=== PATIENT | male | born 1935 | race Caucasian/White ===

== ENCOUNTER 2018-11-19 15:17 | Inpatient (IN) ==
[2018-11-19] MEDS ORDERED: LACTATED RINGERS 1,000 ML IV ONE (15:29)
[2018-11-19] MEDS ORDERED: ONDANSETRON 4 MG/2 ML VIAL IV ONE (15:41)
[2018-11-19] MEDS: HYDROmorphone 2 MG/ML VIAL IV PRN ×2 (16:04→17:58)
[2018-11-19 16:11] LABS: Basophils # (Auto) 0 K/mcL (0.0-0.3); Basophils % (Auto) 0.2 % (0.0-2.0); Eosinophils # (Auto) 0.1 K/mcL (0.0-0.7); Eosinophils % (Auto) 1.8 % (0.0-7.0); Granulocytes % (Auto) 76.5 % (38.0-78.0); Hematocrit 36.1 % (41.0-55.0); Hemoglobin 12.3 g/dL (13.5-16.5); Lymphocytes # (Auto) 0.9 K/mcL (1.5-4.8); Lymphocytes % (Auto) 12.6 % (15.5-49.0); Mean Cell Volume 91.3 fL (80.0-100.0); Mean Corpuscular HGB Conc 34.1 g/dL (31.0-36.0); Monocytes # (Auto) 0.7 K/mcL (0.1-0.9); Monocytes % (Auto) 8.9 % (1.0-12.0); Platelet Count 241 K/mcL (140-440); RBC 3.95 M/mcL (4.50-5.90); Red Cell Distribution Width 14.7 % (11.5-14.5); WBC 7.5 K/mcL (4.5-11.0)
[2018-11-19 16:15] LABS: POC Blood Urea Nitrogen 27 mg/dl (8-23); POC CO2 22 mmol/L (22-30); POC Calcium, Ionized 1.16 mmol/L (1.16-1.32); POC Chloride 104 mmol/L (96-108); POC Creatinine 1.3 mg/dl (0.7-1.2); POC Glucose, Random 350 mg/dL (70-105); POC Potassium 3.7 mmol/L (3.3-5.1); POC Sodium 139 mmol/L (133-145)
[2018-11-19 16:29] LABS: ALT/SGPT 19 U/l (0-40); AST/SGOT 16 U/l (0-37); Albumin 4.1 gm/dL (3.2-5.2); Albumin/Globulin Ratio 1.5 (1.0-2.3); Alkaline Phosphatase 67 U/L (39-117); Bilirubin,Total 0.4 mg/dL (0.0-1.0); Blood Urea Nitrogen 27 mg/dl (8-23); Calcium 8.7 mg/dl (8.6-10.4); Carbon Dioxide 22 mmol/L (22-30); Chloride 100 mmol/L (96-108); Globulin 2.7 gm/dL (2.2-3.7); Glomerular Filtration Rate 46; Glucose 359 mg/dL (70-105)
[2018-11-19] MEDS ORDERED: 0.9 % SODIUM CHLORIDE 1,000 ML IV ONE (16:36)
[2018-11-19] MEDS ORDERED: LABETALOL 5 MG/ML ML IV ONE (17:15)
[2018-11-19] MEDS ORDERED: hydrALAZINE 20 MG/ML VIAL IV ONE (17:18)
--- NOTE | 2018-11-19 17:43 | Cat Scan Report ---
History: Severe abdominal pain with nausea and vomiting TECHNIQUE: The abdomen was imaged following oral but no intravenous contrast due to stage III chronic kidney disease. Radiation exposure was limited using dose reduction technology. Sagittal and coronal reformats were created. FINDINGS: Mild bronchial wall thickening is seen in the posterior basal segments of both lower lobes due to bronchitis. The heart is mildly enlarged and there is been prior coronary bypass surgery. The liver and spleen are normal in size and homogeneous. Posterior to the inferior aspect of the right lobe of liver there is a well-circumscribed homogeneous nodule which measures 7 x 14 mm. This is unchanged from 03/30/17 and is felt to be benign. The gallbladder and bile ducts are normal. There is no evidence of mass or inflammation the pancreas. The adrenals are normal and symmetric. There is a 2 cm cortical cyst in the upper pole of left kidney. Moderate hydronephrosis is present in the left kidney and there is moderate perinephric stranding. At the left ureteropelvic junction there is an 8 x 10 mm calculus. Distal to the stone the ureter is decompressed. No stone or hydronephrosis are present in the right kidney. Moderate amount calcified plaque is present along the wall normal caliber abdominal aorta and iliac arteries. The oral contrast has passed through stomach and normal small intestine to the mid ileum without obstruction or inflammation. There are multiple noninflamed diverticula in the sigmoid and descending colon. Urinary bladder is normally distended and there are no stones within the lumen. Is no adenopathy or ascites. Degenerative changes are present in the lumbar spine. There is a dorsal column electrical stimulator in the lower thoracic spine. IMPRESSION: 8 x 10 mm calculus at the left ureteropelvic junction causing hydronephrosis. Shakila Ruiz was called with the results Interpreted and Authenticated by: Leonardo Mike 11/19/18
[2018-11-19 17:50] LABS: Appearance,Urine CLEAR; Bacteria,Urine 0 /hpf (0); Bilirubin,Urine NEG (NEG); Color,Urine STRAW; Glucose,Urine (UA) >=500 mg/dL (NEG); Ketones,Urine NEG (NEG); Leukocyte Esterase,Urine 75 /uL (NEG); Nitrate,Urine NEG (NEG); Protein,Urine 30 mg/dL (NEG); Specific Gravity,Urine 1.017 (1.000-1.035); Urine Blood 0.03 mg/dL (<0.03); Urine RBC 9 /hpf (0-1); Urine Squamous Epithelial Cell 2 /hpf (0-4); Urine WBC 2 /hpf (0-4); Urobilinogen,Urine NEG (NEG)
--- NOTE | 2018-11-19 17:54 | Emergency Department Note ---
Nausea/Vomiting/Diarrhea HPI - General Chief complaint: Nausea/Vomiting/Diarrhea Stated complaint: Nausea, Vomiting x4-5 hours Time Seen by Provider: 11/19/18 15:40 Source: patient, family Mode of arrival: ambulatory Limitations: no limitations - History of Present Illness HPI Narrative: 83-year-old male presents with severe abdominal discomfort. Also is hypertensive. His states all of a sudden today he just started complaining of severe abdominal pain and back pain. Seems to be worse on the right but hard to tell as he is hurting all over. He is also an extremely poor historian with some baseline confusion and difficult to get information from. states he has not actually vomited but is really nauseated. No diarrhea. No fever ch ills. - Related Data Home Medications Medication Instructions Recorded Confirmed acetaminophen 325 mg tablet 650 mg PO Q6H PRN 10/31/18 10/31/18 Previous Rx's Medication Instructions Recorded Right foot prosthesis #1 ea 04/03/18 diabetic shoes #1 ea 04/03/18 metformin 1,000 mg tablet 1,000 mg PO BID 90 Days #180 tab 08/31/18 tramadol 50 mg tablet 50 mg PO TID #90 tab 08/31/18 apixaban 5 mg tablet 5 mg PO BID #180 tab 09/03/18 gabapentin 300 mg capsule 600 mg PO .COMPLEX #150 cap 10/18/18 Allergies Allergy/AdvReac Type Severity Reaction Status Date / Time No Known Drug Allergies Allergy Verified 10/31/18 10:34 Review of Systems All systems ED: reviewed and negative except as stated. 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) Past Surgical History (Last Reviewed 10/31/18 @ 11:08 by YOLANDE Talavera) Status post insertion of spinal cord stimulator (Chronic) Hx of CABG (Chronic) History of heart valve replacement (Chronic) History of kidney stones (Chronic) History of foot surgery (Chronic) Medical history: Reports: DM, other (Recent removal of left great toenail and was healing well until patient picked it off this morning) Psychiatric history: Reports: no psych history Surgical history ED: Reports: other (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 Absent: conjunctival injection ENT: Present: mucous membranes moist Chest: Present: symmetric chest wall rise Respiratory: Present: normal lung sounds bilaterally. Absent: respiratory distress, rales/crackles, accessory muscle use Cardiovascular: Present: regular rate, normal heart sounds Abdominal: Present: soft, tenderness (Diffuse abdominal tenderness throughout and possibly worse right upper quadrant but difficult to tell as he is so tender all over), normal bowel sounds. Absent: distention, mass Extremities: Present: other (History of right partial foot amputation. The left great toe has slight bleeding at the toenail removal site but no redness or purulent drainage. No signs of infection) Neurological: Present: alert Psychiatric: Present: normal affect, normal mood Skin: Present: warm, dry, intact, normal color Course Course Narrative: Patient greatly improved with a little bit of fluid and some Zofran and Dilaudid. CT scan reveals 8 to 10 mm stone. At [address] Vaughn with urology who agrees to consult on this patient will like to see if hospitalist will admit due to comorbidities. @ 1830 Dr. Tony, hospitalist agrees to accept pt. Vital Signs Temperature 97.0 F 11/19/18 15:19 Pulse Rate 74 11/19/18 15:19 Respiratory Rate 24 H 11/19/18 15:19 Blood Pressure 222/124 11/19/18 15:19 Pulse Oximetry (%) 99 11/19/18 15:19 Temperature 97.0 F 11/19/18 15:19 Pulse Rate 72 11/19/18 17:50 Respiratory Rate 22 11/19/18 17:50 Blood Pressure 194/105 11/19/18 17:46 Pulse Oximetry (%) 97 11/19/18 17:50 Nausea/Vomiting/Diarrhea - Lab Data Lab results reviewed: Yes I reviewed the patient's lab results. Result diagrams: 11/19/18 15:37 11/19/18 15:37 Lab Results 11/19/18 11/19/18 11/19/18 Range/Units 15:37 15:37 16:06 WBC 7.5 (4.5-11.0) K/mcL RBC 3.95 L (4.50-5.90) M/mcL Hgb 12.3 L (13.5-16.5) g/dL Hct 36.1 L (41.0-55.0) % POC Hct 34.0 L (41.0-55.0) % MCV 91.3 (80.0-100.0) fL MCH 31.2 (26.0-34.0) pg MCHC 34.1 (31.0-36.0) g/dL RDW 14.7 H (11.5-14.5) % Plt Count 241 (140-440) K/mcL MPV 7.0 L (7.4-10.4) fL Gran % 76.5 (38.0-78.0) % Lymph % (Auto) 12.6 L (15.5-49.0) % [place] % (Auto) 8.9 (1.0-12.0) % Eos % (Auto) 1.8 (0.0-7.0) % Baso % (Auto) 0.2 (0.0-2.0) % Gran # 5.8 (1.8-8.0) K/mcL Lymph # (Auto) 0.9 L (1.5-4.8) K/mcL [place] # (Auto) 0.7 (0.1-0.9) K/mcL Eos # (Auto) 0.1 (0.0-0.7) K/mcL Baso # (Auto) 0 (0.0-0.3) K/mcL POC Sodium 139 (133-145) mmol/L Sodium 135 (133-145) mmol/L POC Potassium 3.7 (3.3-5.1) mmol/L Potassium 3.8 (3.3-5.1) mmol/L POC Chloride 104 (96-108) mmol/L Chloride 100 (96-108) mmol/L Carbon Dioxide 22 (22-30) mmol/L POC Total CO2 22 (22-30) mmol/L Anion Gap 13.0 (8-16) POC BUN 27 H (8-23) mg/dl BUN 27 H (8-23) mg/dl Creatinine 1.4 H (0.7-1.2) mg/dl POC Creatinine 1.3 H (0.7-1.2) mg/dl GFR Calculation 46 Glucose 359 H (70-105) mg/dL POC Glucose 350 H (70-105) mg/dL Calcium 8.7 (8.6-10.4) mg/dl POC WB Ioniz Calcium 1.16 (1.16-1.32) mmol/L Total Bilirubin 0.4 (0.0-1.0) mg/dL AST 16 (0-37) U/l ALT 19 (0-40) U/l Alkaline Phosphatase 67 (39-117) U/L Total Protein 6.8 (5.9-8.4) gm/dL Albumin 4.1 (3.2-5.2) gm/dL Globulin 2.7 (2.2-3.7) gm/dL Albumin/Globulin Ratio 1.5 (1.0-2.3) Urine Color Urine Appearance Urine pH (5.0-9.0) Ur Specific [place] (1.000-1.035) Urine Protein (NEG) mg/dL Urine Glucose (UA) (NEG) mg/dL Urine Ketones (NEG) mg/dL Urine Occult Blood (<0.03) mg/dL Urine Nitrate (NEG) Urine Bilirubin (NEG) mg/dL Urine Urobilinogen (NEG) mg/dL Ur Leukocyte Esterase (NEG) /uL Urine RBC (0-1) /hpf Urine WBC (0-4) /hpf Ur Squamous Epith Cells (0-4) /hpf Urine Bacteria (0) /hpf Ur Culture Indicated? 11/19/18 Range/Units 17:19 WBC (4.5-11.0) K/mcL RBC (4.50-5.90) M/mcL Hgb (13.5-16.5) g/dL Hct (41.0-55.0) % POC Hct (41.0-55.0) % MCV (80.0-100.0) fL MCH (26.0-34.0) pg MCHC (31.0-36.0) g/dL RDW (11.5-14.5) % Plt Count (140-440) K/mcL MPV (7.4-10.4) fL Gran % (38.0-78.0) % Lymph % (Auto) (15.5-49.0) % [place] % (Auto) (1.0-12.0) % Eos % (Auto) (0.0-7.0) % Baso % (Auto) (0.0-2.0) % Gran # (1.8-8.0) K/mcL Lymph # (Auto) (1.5-4.8) K/mcL [place] # (Auto) (0.1-0.9) K/mcL Eos # (Auto) (0.0-0.7) K/mcL Baso # (Auto) (0.0-0.3) K/mcL POC Sodium (133-145) mmol/L Sodium (133-145) mmol/L POC Potassium (3.3-5.1) mmol/L Potassium (3.3-5.1) mmol/L POC Chloride (96-108) mmol/L Chloride (96-108) mmol/L Carbon Dioxide (22-30) mmol/L POC Total CO2 (22-30) mmol/L Anion Gap (8-16) POC BUN (8-23) mg/dl BUN (8-23) mg/dl Creatinine (0.7-1.2) mg/dl POC Creatinine (0.7-1.2) mg/dl GFR Calculation Glucose (70-105) mg/dL POC Glucose (70-105) mg/dL Calcium (8.6-10.4) mg/dl POC WB Ioniz Calcium (1.16-1.32) mmol/L Total Bilirubin (0.0-1.0) mg/dL AST (0-37) U/l ALT (0-40) U/l Alkaline Phosphatase (39-117) U/L Total Protein (5.9-8.4) gm/dL Albumin (3.2-5.2) gm/dL Globulin (2.2-3.7) gm/dL Albumin/Globulin Ratio (1.0-2.3) Urine Color Straw Urine Appearance Clear Urine pH 6.0 (5.0-9.0) Ur Specific [place] 1.017 (1.000-1.035) Urine Protein 30 A (NEG) mg/dL Urine Glucose (UA) >=500 A (NEG) mg/dL Urine Ketones Neg (NEG) mg/dL Urine Occult Blood 0.03 A (<0.03) mg/dL Urine Nitrate Neg (NEG) Urine Bilirubin Neg (NEG) mg/dL Urine Urobilinogen Neg (NEG) mg/dL Ur Leukocyte Esterase 75 A (NEG) /uL Urine RBC 9 H (0-1) /hpf Urine WBC 2 (0-4) /hpf Ur Squamous Epith Cells 2 (0-4) /hpf Urine Bacteria 0 (0) /hpf Ur Culture Indicated? - Radiology Data Radiology results reviewed: Yes I reviewed the patient's radiology results. Disposition Pt seen by SERVICES MGR/PA only: Yes Clinical Impression: Abdominal pain, Kidney stone, Hydronephrosis, Hypertension, CKD (chronic kidney disease), stage III, Diabetes Disposition: Xfer As Inpt ([facility]) Referrals: Joey Brooks PA-C [Primary Care Provider] - Alec Vaughn MD [Physician] - Time of Disposition: 19:02
[2018-11-19] MEDS ORDERED: INSULIN REGULAR, HUMAN 1 UNIT/0.01 ML UNIT SQ SCH (17:59)
[2018-11-19] MEDS ORDERED: INSULIN REGULAR, HUMAN 1 UNIT/0.01 ML UNIT ONE (18:29)
[2018-11-19] MEDS ORDERED: niCARdipine 25 MG in 0.9 % SODIUM CHLORIDE 240 ML IV SCH (18:45)
[2018-11-19] MEDS ORDERED: POTASSIUM CHLORIDE 20 MEQ PACKET PO PRN (20:36)
[2018-11-19] MEDS ORDERED: traZODone HCL 50 MG TABLET PO PRN (20:36)
[2018-11-19] MEDS ORDERED: ONDANSETRON 4 MG/2 ML VIAL IV PRN (20:36)
[2018-11-19] MEDS ORDERED: guaiFENesin/CODEINE 10 ML UDC PO PRN (20:36)
[2018-11-19] MEDS ORDERED: hydrALAZINE 20 MG/ML VIAL IV PRN (20:36)
[2018-11-19] MEDS ORDERED: MAGNESIUM SULFATE 2 GM/50 ML BAG IV PRN (20:36)
[2018-11-19] MEDS ORDERED: ACETAMINOPHEN 325 MG TABLET PO PRN (20:36)
[2018-11-19] MEDS ORDERED: DEXTROSE 50% 50 ML VIAL IV PRN (20:36)
[2018-11-19] MEDS ORDERED: DEXTROSE 31 GM ORAL.SUSP PO PRN (20:36)
[2018-11-19] MEDS ORDERED: ACETAMINOPHEN 1,000 MG/100 ML BOTTLE IV PRN (20:36)
--- NOTE | 2018-11-19 20:55 | Internal Med History&Physical ---
Medical - H&P: HPI Patient information: Note initiated : 11/19/18 at 8:53 pm Service Date, if different from initiated Date: [] Patient: Wolf Miles 83 y/o M admitted on 11/19/18 for Nausea, Vomiting x4- 5 hours. Chief Complaint: [] Chief complaint: Nausea vomiting abdominal pain History of present illness: Mr. Miles is a 83 year old M who presents to the ER with progressive abdominal pain and nausea vomiting that started abruptly this evening. Pain is described as 8 out of 10 waxing and waning in nature mostly on the right side from groin to groin. Patient has been intermittently confused and when asked details he said the symptoms has been ongoing for the last 6 weeks including abdominal discomfort. Initial work-up in the ER was consistent with nephrolithiasis with obstructive uropathy/hydronephrosis. Patient was also found to be hypertensive over 200. Dr. Vaughn urology was consulted and requested hospitalist service to admit the patient while patient will undergo cystoscopy/stenting in a.m. The time of evaluation no family members are present. Patient is hard of hearing and visually challenged. He Is a poor historian but was able to endorse history as above Review of systems 10 point review of system was performed and is negative except was discussed above Medical - H&P: PMH Medical history: NAYANA (obstructive sleep apnea) (Chronic) Had sleep study in the past. Mask not tolerated. Dementia (Chronic) Afib (Chronic) H/O Neuropathy (Chronic) Bilateral lower extremities to approximately knee level Diarrhea (Chronic) Mild. On metformin. 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) Surgical History Status post insertion of spinal cord stimulator (Chronic) 03/04/16 Dr Patrick Hx of CABG (Chronic) ~2006 History of heart valve replacement (Chronic) ~2006 History of kidney stones (Chronic) History of foot surgery (Chronic) Right transmetatarsal amputation~18 months ago Family History Other No pertinent family history Social History marital status: occupational status: retired occupation: [employer] occupational exposures/hazards: Yes smoking status: Former smoker alcohol intake frequency: 2+ drinks per day substance use type: does not use Medical - H&P: Meds Home Medications Medication Instructions Recorded Confirmed Type Right foot prosthesis #1 ea 04/03/18 10/31/18 Rx diabetic shoes #1 ea 04/03/18 10/31/18 Rx metformin 1,000 mg tablet 1,000 mg PO BID 90 Days #180 tab 08/31/18 10/31/18 Rx tramadol 50 mg tablet 50 mg PO TID #90 tab 08/31/18 10/31/18 Rx apixaban 5 mg tablet 5 mg PO BID #180 tab 09/03/18 10/31/18 Rx gabapentin 300 mg capsule 600 mg PO .COMPLEX #150 cap 10/18/18 10/31/18 Rx acetaminophen 325 mg tablet 650 mg PO Q6H PRN 10/31/18 10/31/18 History Allergies Allergy/AdvReac Type Severity Reaction Status Date / Time No Known Drug Allergies Allergy Verified 11/20/18 03:04 Medical - H&P: Exam - Constitutional Vitals: Temp Pulse Resp BP Pulse Ox 97.6 F 79 22 130/78 95 11/19/18 20:36 11/19/18 20:36 11/19/18 20:36 11/19/18 20:36 11/19/18 20:36 General appearance: moderate distress (Abdominal discomfort) Exam: Head normocephalic Eye movement symmetrical Oral cavity dry No ear nose discharge S1-S2 irregular rhythm with ejection systolic murmur grade 2 Diminished breath sounds bases abdomen soft nontender to palpation Lower extremity no cyanosis clubbing no joint swelling Right midfoot amputation Left big toenail ulceration Skin no suspicious lesion Psych alert and cooperative Neuro nonfocal Medical - H&P: Reslt - Labs CBC & Chem 7: 11/20/18 03:24 11/20/18 03:24 Labs: Short CBC 11/19/18 Range/Units 15:37 WBC 7.5 (4.5-11.0) K/mcL Hgb 12.3 L (13.5-16.5) g/dL Hct 36.1 L (41.0-55.0) % Plt Count 241 (140-440) K/mcL BMP 11/19/18 15:37 Sodium 135 Potassium 3.8 Chloride 100 Carbon Dioxide 22 BUN 27 H Creatinine 1.4 H Glucose 359 H Calcium 8.7 Liver Function 11/19/18 Range/Units 15:37 Total Bilirubin 0.4 (0.0-1.0) mg/dL AST 16 (0-37) U/l ALT 19 (0-40) U/l Alkaline Phosphatase 67 (39-117) U/L Albumin 4.1 (3.2-5.2) gm/dL Urine 11/19/18 Range/Units 17:19 Urine Color Straw Urine Appearance Clear Urine pH 6.0 (5.0-9.0) Ur Specific [place] 1.017 (1.000-1.035) Urine Protein 30 A (NEG) mg/dL Urine Glucose (UA) >=500 A (NEG) mg/dL Medical - H&P: A/P (1) Asymptomatic hypertensive urgency Current visit: Yes Status: Acute * Hypertensive urgency-continue nicardipine drip. Likely exacerbated by pain. Admit to telemetry * Acute renal colic with obstructive uropathy-urology consulted. Continue pain management. Keep n.p.o. Likely undergoes cystoscopy by urology * DM type II continue sliding-scale insulin * Neuropathy continue gabapentin * Anticoagulation on apixaban * Full code Plan * Inpatient telemetry admit * Wean nicardipine drip as tolerated * Pain management * Urology consult * Pre-existing medical condition management and home meds as above
[2018-11-19] MEDS ORDERED: SENNOSIDES/DOCUSATE SODIUM 1 TAB TABLET PO SCH (21:00)
[2018-11-19] MEDS: INSULIN LISPRO 1 UNIT/0.01 ML UNIT SQ SCH (21:27)
[2018-11-19] MEDS: 0.9 % SODIUM CHLORIDE 1,000 ML IV SCH (21:27)
[2018-11-19] MEDS: DOCUSATE SODIUM 100 MG CAPSULE PO SCH (21:27)
[2018-11-19] MEDS: HEPARIN 5,000 UNIT/ML VIAL SQ SCH (21:28)
[2018-11-20] MEDS: 0.9 % SODIUM CHLORIDE 10 ML SYRINGE IV SCH ×4 (00:03→21:00)
[2018-11-20] MEDS: HYDROmorphone 2 MG/ML VIAL IV PRN ×5 (02:37→23:31)
[2018-11-20] MEDS ORDERED: niCARdipine 25 MG in 0.9 % SODIUM CHLORIDE 240 ML IV SCH ×4 (04:30→06:45)
[2018-11-20 05:36] LABS: Hematocrit 37.7 % (41.0-55.0); Hemoglobin 12.5 g/dL (13.5-16.5); Mean Cell Volume 93.6 fL (80.0-100.0); Mean Corpuscular HGB Conc 33.3 g/dL (31.0-36.0); Mean Platelet Volume 7.3 fL (7.4-10.4); Platelet Count 210 K/mcL (140-440); RBC 4.03 M/mcL (4.50-5.90); Red Cell Distribution Width 15.1 % (11.5-14.5); WBC 10.8 K/mcL (4.5-11.0)
[2018-11-20 06:00] LABS: ALT/SGPT 17 U/l (0-40); AST/SGOT 15 U/l (0-37); Albumin 3.8 gm/dL (3.2-5.2); Albumin/Globulin Ratio 1.4 (1.0-2.3); Alkaline Phosphatase 68 U/L (39-117); Bilirubin,Direct < 0.2 mg/dL (0.0-0.3); Bilirubin,Total 0.6 mg/dL (0.0-1.0); Blood Urea Nitrogen 21 mg/dl (8-23); Calcium 8.4 mg/dl (8.6-10.4); Carbon Dioxide 22 mmol/L (22-30); Chloride 101 mmol/L (96-108); Globulin 2.8 gm/dL (2.2-3.7); Glomerular Filtration Rate 56; Glucose 246 mg/dL (70-105); Lactate Dehydrogenase 267 U/L (94-250); Phosphorous 3.1 mg/dL (2.7-4.5); Triglycerides 130 mg/dl (<150); Uric Acid 3.2 mg/dL (2.5-8.0)
[2018-11-20 06:35] LABS: Band Neutrophils % 2 % (0-10); Eosinophils % (Manual) 1 % (0-7); Lymphocytes % 5 % (15-49); Monocytes % (Manual) 3 % (1-12); Platelet Estimate NORMAL (NORMAL); RBC Morphology NORMAL (NORMAL); Segmented Neutrophils % 89 % (38-78)
[2018-11-20] MEDS: INSULIN LISPRO 1 UNIT/0.01 ML UNIT SQ SCH ×3 (07:03→20:57)
[2018-11-20] MEDS ORDERED: INSULIN REGULAR, HUMAN 1 UNIT/0.01 ML UNIT SQ SCH (07:30)
--- NOTE | 2018-11-20 07:42 | General Surgery Progress Note ---
Surgical - Auxillary Note - Subjective Patient Information: Note initiated : 11/20/18 at 7:41 am Service Date, if different from initiated Date: [] Patient: Wolf Miles 83 y/o M admitted on 11/19/18 for Nausea, Vomiting x4- 5 hours. Chief Complaint:Patient examined and consult dictated. to OR today for stent possible stone removal
--- NOTE | 2018-11-20 08:10 | Consultation ---
DATE OF CONSULTATION: 11/20/2018 REQUESTING PHYSICIAN: Farshad Gee M.D. HISTORY OF PRESENT ILLNESS: The patient is an 83-year-old gentleman who was seen in the emergency room yesterday because of severe abdominal discomfort. He stated this came on suddenly, complaining of the pain. He was seen in the emergency room where a CT scan was obtained. This showed a 1 x 0.8 cm stone at the left UPJ. He did have some nausea, no vomiting. The patient does have dementia and is a poor historian. He states that he did have stones approximately 30 years ago and does not remember if he had any intervention. He denies any fevers or chills. He presents now for evaluation. ALLERGIES: None. CURRENT MEDICATIONS: 1. Metformin. 2. Tramadol. 3. Apixaban. 4. Gabapentin. PAST MEDICAL HISTORY: Sleep apnea, dementia, atrial fibrillation, diarrhea, and kidney stones. PAST SURGICAL HISTORY: Spinal cord stimulator, heart valve replacement, foot surgery and a CABG. SOCIAL HISTORY: Used to smoke. Denies any alcohol use. REVIEW OF SYSTEMS: ENDOCRINE: Positive diabetes. PSYCHIATRIC: Positive dementia. CARDIAC: Positive coronary artery disease. PULMONARY: Denies any shortness of breath. No COPD. The rest of a 12-point review of systems is negative. PHYSICAL EXAMINATION: GENERAL: This is a very pleasant gentleman in no apparent distress. VITAL SIGNS: As listed per nurse's notes. NECK: Supple. Trachea is in the midline. HEART: Regular rate and rhythm. LUNGS: Clear to auscultation. ABDOMEN: Soft, nontender, positive left CVA tenderness which extends down to the groin. GENITOURINARY: Normal male phallus, circumcised without plaques. Meatus at the end of his penis. Testicles are normal without lesion. Epididymides without cysts. Scrotum: No hernias. No hydrocele or varicocele. RECTAL: Deferred. EXTREMITIES: Without clubbing, cyanosis or edema. Does have a partial right foot amputation. LYMPHATIC: No adenopathy in neck or groin. IMPRESSION: The patient with a left renal stone. I have talked to the patient about this, and it appears that we may need to stent this. He is on a blood thinner, and so I would not be overly aggressive. I have gone over the procedure with him and complications including bleeding, infection, pain, blood in his urine. We may need to do lithotripsy in the future because of his stone. It depends on what we see in the operating room. I did talk to him about the procedure and a full PARQ discussion was held. We will plan to follow up at the time of surgery. IRVING:[email or web address] Job ID: [id number] Doc ID: [id number] Alec Vaughn MD
[2018-11-20] MEDS: DOCUSATE SODIUM 100 MG CAPSULE PO SCH ×2 (08:52→20:56)
[2018-11-20] MEDS: HEPARIN 5,000 UNIT/ML VIAL SQ SCH (08:52)
[2018-11-20] MEDS ORDERED: MULTIVIT,THER IRON,CA,FA & MIN 1 TABLET PO SCH (09:00)
[2018-11-20] MEDS ORDERED: INSULIN GLARGINE, HUMAN 1 UNIT/0.01 ML SQ SCH (09:00)
[2018-11-20] MEDS ORDERED: amLODIPine 5 MG TABLET PO SCH (09:00)
[2018-11-20] MEDS ORDERED: sitaGLIPtin 100 MG TABLET PO SCH (09:00)
--- NOTE | 2018-11-20 09:55 | Internal Med Progress Note ---
Medical - PN: Subj Patient information: Note initiated : 11/20/18 at 9:52 am Service Date, if different from initiated Date: [] Patient: Wolf Miles 83 y/o M admitted on 11/19/18 for Nausea, Vomiting x4- 5 hours. Chief Complaint: [] Interval history: Mr. Miles is a 83 year old M who presents to the ER with progressive abdominal pain and nausea vomiting that started abruptly this evening. Pain is described as 8 out of 10 waxing and waning in nature mostly on the right side from groin to groin. Patient has been intermittently confused and when asked details he said the symptoms has been ongoing for the last 6 weeks including abdominal discomfort. Initial work-up in the ER was consistent with nephrolithiasis with obstructive uropathy/hydronephrosis. Patient was also found to be hypertensive over 200. Dr. Vaughn urology was consulted and requested hospitalist service to admit the patient while patient will undergo cystoscopy/stenting in a.m. The time of evaluation no family members are present. Patient is hard of hearing and visually challenged. He Is a poor historian but was able to endorse history as above 11/20-patient doing well. Weaning nicardipine drip with systolics around 160s. Due for cystoscopy 3 PM. Overnight fever chills. Pain in good control. Remains afebrile. White count up trending at 10.8. Creatinine down to 1.2. N.p.o. patient was unable to void overnight and Krause's was placed after bladder scan revealed 900 cc. Remains in A. fib - Constitutional Vitals: Vital Signs Temp Pulse Resp BP Pulse Ox 97.9 F 88 14 145/68 92 11/20/18 08:17 11/20/18 03:01 11/20/18 09:47 11/20/18 09:16 11/20/18 03:01 Period Temp Pulse Resp BP Sys/Porter Pulse Ox Last 24 Hr 97.0 F-97.9 F 62-128 03-22 118-228/65-169 92-100 Intake and Output 11/19/18 11/20/18 11/20/18 21:59 05:59 13:59 Intake Total 1120 130 151 Output Total 1230 Balance 1120 -1100 151 Weight 204 lb Intake & Output: Intake & Output 11/19/18 11/20/18 11/20/18 21:59 05:59 13:59 Intake Total 1120 130 151 Output Total 1230 Balance 1120 -1100 151 Weight 204 lb Intake: IV 1120 130 151 Lactated Ringers 1,000 ml @ 1000 Wide Open IV BOLUS ONE Rx#: [id number] Cardene 25 MG In Sodium 120 130 151 Chloride 0.9% 240 ml @ 5 MG/HR 50 mls/hr IV Q5H [facility] Rx#: [id number] Output: Urine Catheter Amount 1230 Other: Urine Appearance Clear Uretheral (Krause) Clear Urine Color Bright Yellow Uretheral (Krause) Pale Bright Yellow Urine Odor Normal Uretheral (Krause) Normal General appearance: no acute distress Exam: Alert oriented Sitting on chair Nonlabored breathing No anxiety Nondistended abdomen Krause is draining clear urine Medical - PN: Obj Da - Labs CBC & Chem 7: 11/20/18 03:24 11/20/18 03:24 Labs: Abnormal Lab Results 11/20/18 11/20/18 11/19/18 03:24 03:24 17:19 RBC 4.03 L Hgb 12.5 L Hct 37.7 L POC Hct RDW 15.1 H MPV 7.3 L Lymph % (Auto) Lymph # (Auto) Seg Neutrophils % 89 H Lymphocytes % 5 L POC BUN BUN Creatinine POC Creatinine Glucose 246 H POC Glucose Calcium 8.4 L Lactate Dehydrogenase 267 H Urine Protein 30 A Urine Glucose (UA) >=500 A Urine Occult Blood 0.03 A Ur Leukocyte Esterase 75 A Urine RBC 9 H 11/19/18 11/19/18 11/19/18 16:06 15:37 15:37 RBC 3.95 L Hgb 12.3 L Hct 36.1 L POC Hct 34.0 L RDW 14.7 H MPV 7.0 L Lymph % (Auto) 12.6 L Lymph # (Auto) 0.9 L Seg Neutrophils % Lymphocytes % POC BUN 27 H BUN 27 H Creatinine 1.4 H POC Creatinine 1.3 H Glucose 359 H POC Glucose 350 H Calcium Lactate Dehydrogenase Urine Protein Urine Glucose (UA) Urine Occult Blood Ur Leukocyte Esterase Urine RBC Meds: Medications Acetaminophen (Tylenol) 650 mg PO Q4-6HP PRN PRN Reason: PAIN/FEVER > 101 Dextrose (Dextrose 50%) 0 ml IV UD PRN PRN Reason: Hypoglycemia Diagnostic Test (Pha) (Accu-Chek) 1 each FS ACHS [facility] Last Admin: 11/20/18 06:52 Dose: 1 each Documented by: Docusate Sodium (Colace) 100 mg PO BID [facility] Last Admin: 11/20/18 08:52 Dose: Not Given Documented by: Glucose (Insta-Glucose) 15 gm PO PRN PRN PRN Reason: Hypoglycemia Guaifenesin/Codeine Phosphate (Robitussin Ac) 10 ml PO Q4HP PRN PRN Reason: Cough Heparin Sodium (Porcine) (Heparin) 5,000 unit SQ Q12 [facility] Last Admin: 11/20/18 08:52 Dose: 5,000 unit Documented by: Hydralazine HCl (Apresoline) 10 mg IV Q4-6HP PRN PRN Reason: Hypertension Last Admin: 11/20/18 03:12 Dose: 10 mg Documented by: Hydromorphone HCl (Dilaudid) 0 mg IV Q4HP PRN PRN Reason: PAIN LEVEL > 6 Last Admin: 11/20/18 07:03 Dose: 0.5 mg Documented by: Magnesium Sulfate (Magnesium Sulfate) 2 gm in 50 mls @ 50 mls/hr IV UD PRN PRN Reason: MG = or < 1.7 Sodium Chloride (Sodium Chloride 0.9%) 1,000 mls @ 50 mls/hr IV .Q20H [facility] Stop: 11/22/18 08:35 Last Admin: 11/19/18 21:27 Dose: 50 mls/hr Documented by: Acetaminophen (Ofirmev) 1,000 mg in 100 mls @ 200 mls/hr IV Q6HP PRN PRN Reason: PAIN/FEVER > 101 Nicardipine HCl 25 mg/ Sodium (Chloride) 250 mls @ 50 mls/hr IV Q5H [facility]; Protocol Last Titration: 11/20/18 08:53 Dose: 0 mg/hr, 0 mls/hr Documented by: Cefazolin Sodium 2 gm/ (Dextrose) 50 mls @ 100 mls/hr IV PREOP [facility]; Protocol Stop: 11/20/18 13:00 Insulin Glargine (Lantus) 10 unit SQ DAILY [facility] Last Admin: 11/20/18 08:52 Dose: 10 units Documented by: Insulin Human Lispro (Humalog) 0 unit SQ ACHS [facility]; Protocol Last Admin: 11/20/18 07:03 Dose: 6 unit Documented by: Iron Carb/Multivit/Reo Asset Manager/Folic Acid (Multivitamin W/Minerals) 1 tab PO DAILY [facility] Last Admin: 11/20/18 08:52 Dose: 1 tab Documented by: Ondansetron HCl (Zofran) 4 mg IV Q4-6HP PRN PRN Reason: Nausea And Vomiting Potassium Chloride (Klor-Con) 40 meq PO DAILYP PRN PRN Reason: K+ < 3.5 Senna/Docusate Sodium (Senna Plus Tablet) 1 tab PO HS [facility] Last Admin: 11/19/18 21:27 Dose: Not Given Documented by: Sitagliptin Phosphate (Januvia) 100 mg PO DAILY [facility] Last Admin: 11/20/18 08:52 Dose: 100 mg Documented by: Sodium Chloride (Saline Flush) 10 ml IV Q8 [facility] Last Admin: 11/20/18 05:01 Dose: Not Given Documented by: Trazodone HCl (Desyrel) 50 mg PO HSP PRN PRN Reason: Insomnia Medical - PN: A/P - Time Spent With Patient Total time spent is greater than 50% in coordination of care (as documented) at patient's floor/unit and/or counseling patient: Greater than 35 minutes (1) Asymptomatic hypertensive urgency Status: Acute Assessment and plan: * Hypertensive urgency-continue nicardipine drip. Likely exacerbated by pain. Admit to telemetry * Acute renal colic with obstructive uropathy-urology consulted. Continue pain management. Keep n.p.o. Likely undergoes cystoscopy by urology * DM type II continue sliding-scale insulin/basal/CCD * Atrial fibrillation rate controlled-anticoagulation on apixaban * Neuropathy continue gabapentin * Full code Plan * Review postprocedure * Wean nicardipine drip as tolerated * Pain management * Pre-existing medical condition management and home meds as above Current Visit: Yes Medical - PN: Qual - Stroke Symptom Onset Unknown: No - VTE Deep Vein Thrombosis/Pulmonary Embolism Present on Admission: No
[2018-11-20] MEDS ORDERED: niCARdipine 25 MG in 0.9 % SODIUM CHLORIDE 240 ML IV PRN ×3 (11:00→17:41)
[2018-11-20] MEDS ORDERED: LOPERAMIDE 2 MG CAPSULE PO PRN ×3 (11:46→17:41)
[2018-11-20] MEDS: ceFAZolin 2 GM in DEXTROSE 5% IN WATER 50 ML IV SCH ×2 (14:33→14:42)
[2018-11-20] MEDS ORDERED: ONDANSETRON 4 MG/2 ML VIAL IV ONE (15:00)
[2018-11-20] MEDS ORDERED: ePHEDrine 50 MG/ML AMPUL IV ONE (15:00)
[2018-11-20] MEDS ORDERED: PROPOFOL 200 MG/20 ML VIAL IV ONE (15:00)
[2018-11-20] MEDS ORDERED: MIDAZOLAM 2 MG/2 ML VIAL IV ONE (15:00)
[2018-11-20] MEDS ORDERED: DEXAMETHASONE 10 MG/ML VIAL IV ONE (15:00)
[2018-11-20] MEDS ORDERED: LIDOCAINE HCL/PF 100 MG/5 ML SYRINGE IV ONE (15:00)
[2018-11-20] MEDS ORDERED: traMADol 50 MG TABLET PO SCH ×2 (15:00→21:00)
[2018-11-20] MEDS ORDERED: FLUMAZENIL 0.1 MG/ML ML IV PRN ×2 (15:26→16:36)
[2018-11-20] MEDS ORDERED: METHOCARBAMOL 1,000 MG/10 ML VIAL IV PRN ×2 (15:26→16:36)
[2018-11-20] MEDS ORDERED: fentaNYL 100 MCG/2 ML VIAL IV PRN ×2 (15:26→16:36)
[2018-11-20] MEDS ORDERED: METOPROLOL TARTRATE 5 MG/5 ML VIAL IV PRN ×2 (15:26→16:36)
[2018-11-20] MEDS ORDERED: ONDANSETRON 4 MG/2 ML VIAL IV PRN ×4 (15:26→17:41)
[2018-11-20] MEDS ORDERED: ATROPINE SULFATE 0.4 MG/ML VIAL IV PRN ×2 (15:26→16:36)
[2018-11-20] MEDS ORDERED: NALOXONE HCL 0.4 MG/ML VIAL IV PRN ×2 (15:26→16:36)
[2018-11-20] MEDS ORDERED: ePHEDrine 50 MG/ML AMPUL IV PRN ×2 (15:26→16:36)
[2018-11-20] MEDS ORDERED: IPRATROPIUM/ALBUTEROL 3 ML AMPUL.NEB NEB PRN ×2 (15:26→16:36)
[2018-11-20] MEDS ORDERED: diphenhydrAMINE 50 MG/ML VIAL IV PRN ×2 (15:26→16:36)
[2018-11-20] MEDS ORDERED: PROMETHAZINE 25 MG/ML VIAL IV PRN ×2 (15:26→16:36)
--- NOTE | 2018-11-20 15:59 | Brief Operative Note ---
Date of procedure: 11/20/18 Pre-op diagnosis: left renal stone Post-op diagnosis: same Procedure: ureteroscopy, laser litho, stent Grafts/Implants: Yes (ureteral stent) Anesthesia: GLMA Findings: see note Complications: none Surgeon: Alec Vaughn Specimens Removed/Pathology: none sent Condition: stable Disposition: PACU
[2018-11-20] MEDS ORDERED: IOHEXOL 300 10 ML VIAL IV ONE (16:13)
[2018-11-20] MEDS ORDERED: ACETAMINOPHEN 325 MG TABLET PO PRN ×2 (16:36→17:41)
[2018-11-20] MEDS ORDERED: traZODone HCL 50 MG TABLET PO PRN (16:36)
[2018-11-20] MEDS ORDERED: POTASSIUM CHLORIDE 20 MEQ PACKET PO PRN ×2 (16:36→17:41)
[2018-11-20] MEDS ORDERED: HYDROmorphone 2 MG/ML VIAL IV PRN (16:36)
[2018-11-20] MEDS ORDERED: ceFAZolin 2 GM in DEXTROSE 5% IN WATER 50 ML IV SCH (16:36)
[2018-11-20] MEDS ORDERED: DEXTROSE 31 GM ORAL.SUSP PO PRN ×2 (16:36→17:41)
[2018-11-20] MEDS ORDERED: MAGNESIUM SULFATE 2 GM/50 ML BAG IV PRN ×2 (16:36→17:41)
[2018-11-20] MEDS ORDERED: 0.9 % SODIUM CHLORIDE 1,000 ML IV SCH (16:36)
[2018-11-20] MEDS ORDERED: guaiFENesin/CODEINE 10 ML UDC PO PRN ×2 (16:36→17:41)
[2018-11-20] MEDS ORDERED: DEXTROSE 50% 50 ML VIAL IV PRN ×2 (16:36→17:41)
[2018-11-20] MEDS ORDERED: ACETAMINOPHEN 1,000 MG/100 ML BOTTLE IV PRN ×2 (16:36→17:41)
[2018-11-20] MEDS ORDERED: hydrALAZINE 20 MG/ML VIAL IV PRN ×2 (16:36→17:41)
[2018-11-20] MEDS ORDERED: INSULIN LISPRO 1 UNIT/0.01 ML UNIT SQ SCH (17:00)
[2018-11-20] MEDS: 0.9 % SODIUM CHLORIDE 1,000 ML IV SCH (17:24)
[2018-11-20] MEDS: APIXABAN 5 MG TABLET PO SCH (20:56)
[2018-11-20] MEDS: traZODone HCL 50 MG TABLET PO PRN (20:56)
[2018-11-20] MEDS: traMADol 50 MG TABLET PO SCH (20:58)
[2018-11-20] MEDS: SENNOSIDES/DOCUSATE SODIUM 1 TAB TABLET PO SCH (21:00)
[2018-11-20] MEDS ORDERED: DOCUSATE SODIUM 100 MG CAPSULE PO SCH (21:00)
[2018-11-20] MEDS ORDERED: SENNOSIDES/DOCUSATE SODIUM 1 TAB TABLET PO SCH (21:00)
[2018-11-20] MEDS ORDERED: APIXABAN 5 MG TABLET PO SCH ×2 (21:00)
[2018-11-20] MEDS ORDERED: 0.9 % SODIUM CHLORIDE 10 ML SYRINGE IV SCH (22:00)
[2018-11-21] MEDS ORDERED: GABAPENTIN 300 MG CAPSULE PO ONE (00:08)
[2018-11-21] MEDS ORDERED: GABAPENTIN 300 MG CAPSULE ONE (00:19)
[2018-11-21 05:22] LABS: Hematocrit 32.6 % (41.0-55.0); Hemoglobin 10.9 g/dL (13.5-16.5); Mean Cell Volume 93.8 fL (80.0-100.0); Mean Corpuscular HGB Conc 33.6 g/dL (31.0-36.0); Mean Platelet Volume 7.8 fL (7.4-10.4); Platelet Count 179 K/mcL (140-440); RBC 3.48 M/mcL (4.50-5.90); Red Cell Distribution Width 15.5 % (11.5-14.5); WBC 9.3 K/mcL (4.5-11.0)
[2018-11-21 05:37] LABS: ALT/SGPT 12 U/l (0-40); AST/SGOT 11 U/l (0-37); Albumin 3.4 gm/dL (3.2-5.2); Albumin/Globulin Ratio 1.4 (1.0-2.3); Alkaline Phosphatase 66 U/L (39-117); Bilirubin,Direct < 0.2 mg/dL (0.0-0.3); Bilirubin,Total 0.5 mg/dL (0.0-1.0); Blood Urea Nitrogen 26 mg/dl (8-23); Calcium 8.1 mg/dl (8.6-10.4); Carbon Dioxide 22 mmol/L (22-30); Chloride 101 mmol/L (96-108); Globulin 2.5 gm/dL (2.2-3.7); Glomerular Filtration Rate 40; Glucose 318 mg/dL (70-105); Lactate Dehydrogenase 269 U/L (94-250); Phosphorous 3.1 mg/dL (2.7-4.5); Triglycerides 75 mg/dl (<150); Uric Acid 3.8 mg/dL (2.5-8.0)
[2018-11-21] MEDS: 0.9 % SODIUM CHLORIDE 10 ML SYRINGE IV SCH ×3 (05:38→19:15)
[2018-11-21 06:14] LABS: Monocytes % (Manual) 3 % (1-12); Platelet Estimate NORMAL (NORMAL); RBC Morphology NORMAL (NORMAL); Segmented Neutrophils % 97 % (38-78)
--- NOTE | 2018-11-21 07:03 | Operative Note ---
DATE OF OPERATION: 11/20/2018 PREOPERATIVE DIAGNOSIS: Left renal stone. POSTOPERATIVE DIAGNOSIS: Left renal stone. PROCEDURE: Cystoscopy, retrograde pyelogram, ureteroscopy, laser lithotripsy and stent placement. SURGEON: Alec Vaughn MD INDICATION: The patient is an 83-year-old gentleman who had severe sudden onset of left flank pain yesterday. CT scan did show a 1 cm stone in his left kidney at the UPJ. He presents now for treatment. PROCEDURE IN DETAIL: The patient was identified and consent was signed. He was given general anesthesia, placed in lithotomy position, prepped and draped in a standard fashion. Cystourethroscopy showed normal-appearing urethra. The prostate was mildly enlarged. Orifices were in their normal position and there was stone debris in bladder. We did do a retrograde pyelogram which showed a stone at the left UPJ approximately a cm in size. I did pass a wire up into the kidney and then was able to pass the ureteroscope up near the ureteropelvic junction. The stone had been pushed back up in the kidney so the decision was made to do flexible ureteroscopy. With the wire in place, the access wire was then placed without difficulty and then we were able to introduce the flexible ureteroscope. We were able to see the stone and this we were able to dust into multiple fragments. There were no big fragments enough to grasp and I felt that the stone had been broken up. The decision was made to leave a stent. A 6 x 28 stent was then placed using the Seldinger technique, after the access sheath had been removed. The string was left attached. His bladder was drained. He was awoken and taken to the recovery room. The string was taped to the penis. He tolerated the procedure well. RZ:[id number] Job ID: [id number] Doc ID: [id number] Alec Vaughn MD
--- NOTE | 2018-11-21 07:29 | General Surgery Progress Note ---
Surgical - Auxillary Note - Subjective Patient Information: Note initiated : 11/21/18 at 7:27 am Service Date, if different from initiated Date: [] Patient: Wolf Miles 83 y/o M admitted on 11/19/18 for Nausea, Vomiting x4- 5 hours. Chief Complaint: renal stone Patient improved this am. denies any pain. stent can be removed by pulling the string on Monday. I will f/u in 2 weeks in the office.
[2018-11-21] MEDS: INSULIN LISPRO 1 UNIT/0.01 ML UNIT SQ SCH ×3 (08:00→18:53)
[2018-11-21] MEDS: APIXABAN 5 MG TABLET PO SCH ×2 (08:20→23:54)
[2018-11-21] MEDS: MULTIVIT,THER IRON,CA,FA & MIN 1 TABLET PO SCH (08:20)
[2018-11-21] MEDS: traMADol 50 MG TABLET PO SCH ×3 (08:21→23:54)
[2018-11-21] MEDS: sitaGLIPtin 100 MG TABLET PO SCH (08:21)
[2018-11-21] MEDS: amLODIPine 5 MG TABLET PO SCH (08:21)
[2018-11-21] MEDS ORDERED: INSULIN GLARGINE, HUMAN 1 UNIT/0.01 ML SQ SCH ×2 (09:00)
[2018-11-21] MEDS ORDERED: GABAPENTIN 300 MG CAPSULE PO SCH ×3 (09:00)
[2018-11-21] MEDS ORDERED: MULTIVIT,THER IRON,CA,FA & MIN 1 TABLET PO SCH (09:00)
[2018-11-21] MEDS ORDERED: sitaGLIPtin 100 MG TABLET PO SCH (09:00)
[2018-11-21] MEDS ORDERED: amLODIPine 5 MG TABLET PO SCH (09:00)
[2018-11-21] MEDS: DOCUSATE SODIUM 100 MG CAPSULE PO SCH ×2 (10:31→23:47)
[2018-11-21] MEDS: DULoxetine 30 MG CAPSULE PO SCH (10:37)
--- NOTE | 2018-11-21 10:55 | Internal Med Progress Note ---
Medical - PN: Subj Patient information: Note initiated : 11/21/18 at 10:52 am Service Date, if different from initiated Date: [] Patient: Wolf Miles 83 y/o M admitted on 11/19/18 for Nausea, Vomiting x4- 5 hours. Chief Complaint: [] Interval history: Mr. Miles is a 83 year old M who presents to the ER with progressive abdominal pain and nausea vomiting that started abruptly this evening. Pain is described as 8 out of 10 waxing and waning in nature mostly on the right side from groin to groin. Patient has been intermittently confused and when asked details he said the symptoms has been ongoing for the last 6 weeks including abdominal discomfort. Initial work-up in the ER was consistent with nephrolithiasis with obstructive uropathy/hydronephrosis. Patient was also found to be hypertensive over 200. Dr. Vaughn urology was consulted and requested hospitalist service to admit the patient while patient will undergo cystoscopy/stenting in a.m. The time of evaluation no family members are present. Patient is hard of hearing and visually challenged. He Is a poor historian but was able to endorse history as above 11/20-patient doing well. Weaning nicardipine drip with systolics around 160s. Due for cystoscopy 3 PM. Overnight fever chills. Pain in good control. Remains afebrile. White count up trending at 10.8. Creatinine down to 1.2. N.p.o. patient was unable to void overnight and Krause's was placed after bladder scan revealed 900 cc. Remains in A. fib 11/21-patient doing well. Intermittent confused. Patient concerned about possible gabapentin reaction. Complains of pain around the great toenail infection. Continue antibiotic coverage. Status post ureteric stent placement. No family members at bedside. Ongoing PT OT/nutrition support. Anticipate discharge in 24 to 48 hours with clinical improvement. Creatinine 1.6. Systolics around 120. Improved on Norvasc. Blood sugars around 250. Increase basal insulin. Continue CC diet. Start Cymbalta for neuropathic pain - Constitutional Vitals: Vital Signs Temp Pulse Resp BP Pulse Ox 97.0 F 67 18 122/67 96 11/21/18 06:49 11/21/18 06:49 11/21/18 06:49 11/21/18 06:49 11/21/18 06:49 Period Temp Pulse Resp BP Sys/Porter Pulse Ox Last 24 Hr 97.0 F-98.9 F 61-88 10-22 107-177/57-113 92-100 Intake and Output 11/20/18 11/21/18 11/21/18 21:59 05:59 13:59 Intake Total 1395 160 120 Output Total 402 4 Balance 993 156 120 Weight 208 lb Intake & Output: Intake & Output 11/20/18 11/21/18 11/21/18 21:59 05:59 13:59 Intake Total 1395 160 120 Output Total 402 4 Balance 993 156 120 Weight 208 lb Intake: IV 15 Ancef 2 gm In Dextrose 5% in 15 Water 50 ml @ 100 mls/hr IV PREOP [facility] Rx#:[id number] Oral 480 160 120 IV - Manual Only 900 Output: Urine Catheter Amount 400 # of times incontinent of urine 2 4 Other: Meal Dinner Breakfast Percent of Meal Consumed 100% 100% Feeding Ability Independent Urine Appearance Clear Hematuria Urine Color Blood Tinged Red Brown Urine Odor Normal Stool Size Moderate Stool Color Brown Stool Consistency Soft # Voids 1 # Bowel Movements 1 General appearance: no acute distress Exam: Intermittently confused Nonlabored breathing Minimal anxiety Nondistended abdomen No lymphedema Medical - PN: Obj Da - Labs CBC & Chem 7: 11/21/18 03:15 11/21/18 03:15 Labs: Abnormal Lab Results 11/21/18 11/21/18 11/20/18 03:15 03:15 03:24 RBC 3.48 L Hgb 10.9 L Hct 32.6 L POC Hct RDW 15.5 H MPV Lymph % (Auto) Lymph # (Auto) Seg Neutrophils % 97 H Lymphocytes % POC BUN BUN 26 H Creatinine 1.6 H POC Creatinine Glucose 318 H 246 H POC Glucose Calcium 8.1 L 8.4 L Lactate Dehydrogenase 269 H 267 H Urine Protein Urine Glucose (UA) Urine Occult Blood Ur Leukocyte Esterase Urine RBC 11/20/18 11/19/18 11/19/18 03:24 17:19 16:06 RBC 4.03 L Hgb 12.5 L Hct 37.7 L POC Hct 34.0 L RDW 15.1 H MPV 7.3 L Lymph % (Auto) Lymph # (Auto) Seg Neutrophils % 89 H Lymphocytes % 5 L POC BUN 27 H BUN Creatinine POC Creatinine 1.3 H Glucose POC Glucose 350 H Calcium Lactate Dehydrogenase Urine Protein 30 A Urine Glucose (UA) >=500 A Urine Occult Blood 0.03 A Ur Leukocyte Esterase 75 A Urine RBC 9 H 11/19/18 11/19/18 15:37 15:37 RBC 3.95 L Hgb 12.3 L Hct 36.1 L POC Hct RDW 14.7 H MPV 7.0 L Lymph % (Auto) 12.6 L Lymph # (Auto) 0.9 L Seg Neutrophils % Lymphocytes % POC BUN BUN 27 H Creatinine 1.4 H POC Creatinine Glucose 359 H POC Glucose Calcium Lactate Dehydrogenase Urine Protein Urine Glucose (UA) Urine Occult Blood Ur Leukocyte Esterase Urine RBC Meds: Medications Acetaminophen (Tylenol) 650 mg PO Q4-6HP PRN PRN Reason: PAIN/FEVER > 101 Amlodipine Besylate (Norvasc) 5 mg PO DAILY [facility] Last Admin: 11/21/18 08:21 Dose: 5 mg Documented by: Apixaban (Eliquis) 5 mg PO BID [facility] Last Admin: 11/21/18 08:20 Dose: 5 mg Documented by: Dextrose (Dextrose 50%) 0 ml IV UD PRN PRN Reason: Hypoglycemia Diagnostic Test (Pha) (Accu-Chek) 1 each FS ACHS [facility] Last Admin: 11/21/18 07:41 Dose: 1 each Documented by: Docusate Sodium (Colace) 100 mg PO BID [facility] Last Admin: 11/21/18 10:31 Dose: Not Given Documented by: Duloxetine HCl (Cymbalta) 30 mg PO DAILY [facility] Last Admin: 11/21/18 10:37 Dose: 30 mg Documented by: Glucose (Insta-Glucose) 15 gm PO PRN PRN PRN Reason: Hypoglycemia Guaifenesin/Codeine Phosphate (Robitussin Ac) 10 ml PO Q4HP PRN PRN Reason: Cough Hydralazine HCl (Apresoline) 10 mg IV Q4-6HP PRN PRN Reason: Hypertension Hydromorphone HCl (Dilaudid) 0 mg IV Q4HP PRN PRN Reason: PAIN LEVEL > 6 Last Admin: 11/20/18 23:31 Dose: 0.25 mg Documented by: Magnesium Sulfate (Magnesium Sulfate) 2 gm in 50 mls @ 50 mls/hr IV UD PRN PRN Reason: MG = or < 1.7 Nicardipine HCl 25 mg/ Sodium (Chloride) 250 mls @ 50 mls/hr IV Q5HP PRN; Protocol PRN Reason: Hypertension Acetaminophen (Ofirmev) 1,000 mg in 100 mls @ 200 mls/hr IV Q6HP PRN PRN Reason: PAIN/FEVER > 101 Insulin Glargine (Lantus) 10 unit SQ DAILY [facility] Last Admin: 11/21/18 08:22 Dose: 10 units Documented by: Insulin Human Lispro (Humalog) 0 unit SQ ACHS [facility]; Protocol Last Admin: 11/21/18 08:00 Dose: 6 unit Documented by: Iron Carb/Multivit/Musical Instrument Mechanic/Folic Acid (Multivitamin W/Minerals) 1 tab PO DAILY [facility] Last Admin: 11/21/18 08:20 Dose: 1 tab Documented by: Loperamide HCl (Imodium) 2 mg PO UD PRN PRN Reason: Diarrhea Ondansetron HCl (Zofran) 4 mg IV Q4-6HP PRN PRN Reason: Nausea And Vomiting Potassium Chloride (Klor-Con) 40 meq PO DAILYP PRN PRN Reason: K+ < 3.5 Senna/Docusate Sodium (Senna Plus Tablet) 1 tab PO HS [facility] Last Admin: 11/20/18 21:00 Dose: 1 tab Documented by: Sitagliptin Phosphate (Januvia) 100 mg PO DAILY [facility] Last Admin: 11/21/18 08:21 Dose: 100 mg Documented by: Sodium Chloride (Saline Flush) 10 ml IV Q8 [facility] Last Admin: 11/21/18 05:38 Dose: 10 ml Documented by: Tramadol HCl (Ultram) 50 mg PO TID [facility] Last Admin: 11/21/18 08:21 Dose: 50 mg Documented by: Trazodone HCl (Desyrel) 50 mg PO HSP PRN PRN Reason: Insomnia Last Admin: 11/20/18 20:56 Dose: 50 mg Documented by: Medical - PN: A/P - Time Spent With Patient Total time spent is greater than 50% in coordination of care (as documented) at patient's floor/unit and/or counseling patient: 25 - 35 minutes (1) Asymptomatic hypertensive urgency Status: Acute Assessment and plan: * Acute renal colic with obstructive uropathy-status post renal stenting. Currently pain-free. * DM type II suboptimally controlled, increase basal insulin/ sliding-scale/ CCD * Hypertensive urgency-clinically resolved. Well-controlled on Norvasc. * Acute kidney injury secondary to obstructive uropathy. Creatinine 1.6. Continue monitoring * Atrial fibrillation rate controlled-anticoagulation on apixaban * Neuropathy pain involving lower extremity, start Cymbalta * Lt Big toenail bed cellulitis. Recent tolerated removal. Continue antibiotics/wound care * Full code Plan * Monitor renal function * Continue anticoagulation * Increase basal insulin to 20 * Start Cymbalta and DC gabapentin * Continue Norvasc * Antibiotic/wound care * Pain management * Pre-existing medical condition management and home meds as above Current Visit: Yes Medical - PN: Qual - Stroke Symptom Onset Unknown: No - VTE Deep Vein Thrombosis/Pulmonary Embolism Present on Admission: No
[2018-11-21] MEDS: CEPHALEXIN 500 MG CAPSULE PO SCH ×3 (12:47→23:53)
[2018-11-21] MEDS ORDERED: OLANZapine 10 MG VIAL IM ONE (17:30)
[2018-11-21] MEDS: HYDROmorphone 2 MG/ML VIAL IV PRN (19:14)
[2018-11-21] MEDS: SENNOSIDES/DOCUSATE SODIUM 1 TAB TABLET PO SCH (23:47)
[2018-11-22] MEDS: INSULIN LISPRO 1 UNIT/0.01 ML UNIT SQ SCH ×5 (00:45→20:42)
[2018-11-22] MEDS: CEPHALEXIN 500 MG CAPSULE PO SCH ×3 (04:20→15:00)
[2018-11-22] MEDS: APIXABAN 5 MG TABLET PO SCH ×3 (04:21→20:41)
[2018-11-22] MEDS: traMADol 50 MG TABLET PO SCH ×5 (04:21→21:53)
[2018-11-22] MEDS: 0.9 % SODIUM CHLORIDE 10 ML SYRINGE IV SCH ×3 (04:35→20:53)
[2018-11-22 05:32] LABS: Hematocrit 30.4 % (41.0-55.0); Hemoglobin 10.2 g/dL (13.5-16.5); Mean Cell Volume 94.5 fL (80.0-100.0); Mean Corpuscular HGB Conc 33.6 g/dL (31.0-36.0); Mean Platelet Volume 7.6 fL (7.4-10.4); Platelet Count 188 K/mcL (140-440); RBC 3.22 M/mcL (4.50-5.90); Red Cell Distribution Width 15.1 % (11.5-14.5); WBC 10.2 K/mcL (4.5-11.0)
[2018-11-22 06:15] LABS: ALT/SGPT 14 U/l (0-40); AST/SGOT 13 U/l (0-37); Albumin 3.5 gm/dL (3.2-5.2); Albumin/Globulin Ratio 1.3 (1.0-2.3); Alkaline Phosphatase 53 U/L (39-117); Bilirubin,Direct < 0.2 mg/dL (0.0-0.3); Bilirubin,Total 0.4 mg/dL (0.0-1.0); Blood Urea Nitrogen 36 mg/dl (8-23); Calcium 8.1 mg/dl (8.6-10.4); Carbon Dioxide 22 mmol/L (22-30); Chloride 104 mmol/L (96-108); Globulin 2.6 gm/dL (2.2-3.7); Glomerular Filtration Rate 40; Glucose 147 mg/dL (70-105); Lactate Dehydrogenase 207 U/L (94-250); Triglycerides 82 mg/dl (<150); Uric Acid 4.7 mg/dL (2.5-8.0)
[2018-11-22 08:00] LABS: Anisocytosis 1+ (NONE SEEN); Eosinophils % (Manual) 1 % (0-7); Lymphocytes % 7 % (15-49); Monocytes % (Manual) 8 % (1-12); Platelet Estimate NORMAL (NORMAL); Polychromasia 1+ (NONE SEEN); RBC Morphology ABNORM (NORMAL); Segmented Neutrophils % 84 % (38-78)
[2018-11-22] MEDS: DULoxetine 30 MG CAPSULE PO SCH (08:41)
[2018-11-22] MEDS: DOCUSATE SODIUM 100 MG CAPSULE PO SCH ×2 (08:41→20:41)
[2018-11-22] MEDS: amLODIPine 5 MG TABLET PO SCH (08:45)
[2018-11-22] MEDS: sitaGLIPtin 100 MG TABLET PO SCH (08:55)
[2018-11-22] MEDS: MULTIVIT,THER IRON,CA,FA & MIN 1 TABLET PO SCH (08:55)
[2018-11-22] MEDS: HYDROmorphone 2 MG/ML VIAL IV PRN (11:00)
[2018-11-22] MEDS: INSULIN GLARGINE, HUMAN 1 UNIT/0.01 ML SQ SCH (14:35)
--- NOTE | 2018-11-22 15:05 | Internal Med Progress Note ---
Medical - PN: Subj Patient information: Note initiated : 11/22/18 at 3:00 pm Service Date, if different from initiated Date: [] Patient: Wolf Miles 83 y/o M admitted on 11/19/18 for Nausea, Vomiting x4- 5 hours. Chief Complaint: [] Interval history: Mr. Miles is a 83 year old M who presents to the ER with progressive abdominal pain and nausea vomiting that started abruptly this evening. Pain is described as 8 out of 10 waxing and waning in nature mostly on the right side from groin to groin. Patient has been intermittently confused and when asked details he said the symptoms has been ongoing for the last 6 weeks including abdominal discomfort. Initial work-up in the ER was consistent with nephrolithiasis with obstructive uropathy/hydronephrosis. Patient was also found to be hypertensive over 200. Dr. Vaughn urology was consulted and requested hospitalist service to admit the patient while patient will undergo cystoscopy/stenting in a.m. The time of evaluation no family members are present. Patient is hard of hearing and visually challenged. He Is a poor historian but was able to endorse history as above 11/20-patient doing well. Weaning nicardipine drip with systolics around 160s. Due for cystoscopy 3 PM. Overnight fever chills. Pain in good control. Remains afebrile. White count up trending at 10.8. Creatinine down to 1.2. N.p.o. patient was unable to void overnight and Krause's was placed after bladder scan revealed 900 cc. Remains in A. fib 11/21-patient doing well. Intermittent confused. Patient concerned about possible gabapentin reaction. Complains of pain around the great toenail infection. Continue antibiotic coverage. Status post ureteric stent placement. No family members at bedside. Ongoing PT OT/nutrition support. Anticipate discharge in 24 to 48 hours with clinical improvement. Creatinine 1.6. Systolics around 120. Improved on Norvasc. Blood sugars around 250. Increase basal insulin. Continue CC diet. Start Cymbalta for neuropathic pain 11/22-patient remains confused. at bedside. Discussed option for transfer to detention home once clinically improved. in agreement. Case discussed with case management. No overnight fever chills. Intermittent episodes of anxiety agitation and aggressive behavior. Remains disoriented - Constitutional Vitals: Vital Signs Temp Pulse Resp BP Pulse Ox 97.4 F 83 20 128/66 91 11/22/18 12:00 11/22/18 07:37 11/22/18 12:00 11/22/18 12:00 11/22/18 12:00 Period Temp Pulse Resp BP Sys/Porter Pulse Ox Last 24 Hr 97.4 F-98.8 F 78-85 14-20 110-174/65-94 91-97 Intake and Output 11/22/18 11/22/18 11/22/18 05:59 13:59 21:59 Intake Total 180 440 Output Total 4 Balance 176 440 Intake & Output: Intake & Output 11/22/18 11/22/18 11/22/18 05:59 13:59 21:59 Intake Total 180 440 Output Total 4 Balance 176 440 Intake: Oral 180 440 Output: # of times incontinent of urine 4 Other: Meal Breakfast Percent of Meal Consumed 100% Feeding Ability Independent Urine Appearance Hematuria Urine Color Red Brown Red Brown Urine Odor Strong Exam: Disoriented Confused Nonlabored breathing No lymphedema Nondistended nontender abdomen Medical - PN: Obj Da - Labs CBC & Chem 7: 11/22/18 03:53 11/22/18 03:53 Labs: Abnormal Lab Results 11/22/18 11/22/18 11/21/18 03:53 03:53 03:15 RBC 3.22 L Hgb 10.2 L Hct 30.4 L POC Hct RDW 15.1 H MPV Lymph % (Auto) Lymph # (Auto) Seg Neutrophils % 84 H Lymphocytes % 7 L RBC Morphology Abnorm A Polychromasia 1+ A Anisocytosis 1+ A POC BUN BUN 36 H 26 H Creatinine 1.6 H 1.6 H POC Creatinine Glucose 147 H 318 H POC Glucose Calcium 8.1 L 8.1 L Lactate Dehydrogenase 269 H Urine Protein Urine Glucose (UA) Urine Occult Blood Ur Leukocyte Esterase Urine RBC 11/21/18 11/20/18 11/20/18 03:15 03:24 03:24 RBC 3.48 L 4.03 L Hgb 10.9 L 12.5 L Hct 32.6 L 37.7 L POC Hct RDW 15.5 H 15.1 H MPV 7.3 L Lymph % (Auto) Lymph # (Auto) Seg Neutrophils % 97 H 89 H Lymphocytes % 5 L RBC Morphology Polychromasia Anisocytosis POC BUN BUN Creatinine POC Creatinine Glucose 246 H POC Glucose Calcium 8.4 L Lactate Dehydrogenase 267 H Urine Protein Urine Glucose (UA) Urine Occult Blood Ur Leukocyte Esterase Urine RBC 11/19/18 11/19/18 11/19/18 17:19 16:06 15:37 RBC Hgb Hct POC Hct 34.0 L RDW MPV Lymph % (Auto) Lymph # (Auto) Seg Neutrophils % Lymphocytes % RBC Morphology Polychromasia Anisocytosis POC BUN 27 H BUN 27 H Creatinine 1.4 H POC Creatinine 1.3 H Glucose 359 H POC Glucose 350 H Calcium Lactate Dehydrogenase Urine Protein 30 A Urine Glucose (UA) >=500 A Urine Occult Blood 0.03 A Ur Leukocyte Esterase 75 A Urine RBC 9 H 11/19/18 15:37 RBC 3.95 L Hgb 12.3 L Hct 36.1 L POC Hct RDW 14.7 H MPV 7.0 L Lymph % (Auto) 12.6 L Lymph # (Auto) 0.9 L Seg Neutrophils % Lymphocytes % RBC Morphology Polychromasia Anisocytosis POC BUN BUN Creatinine POC Creatinine Glucose POC Glucose Calcium Lactate Dehydrogenase Urine Protein Urine Glucose (UA) Urine Occult Blood Ur Leukocyte Esterase Urine RBC Meds: Medications Acetaminophen (Tylenol) 650 mg PO Q4-6HP PRN PRN Reason: PAIN/FEVER > 101 Last Admin: 11/22/18 08:47 Dose: 650 mg Documented by: Amlodipine Besylate (Norvasc) 5 mg PO DAILY [facility] Last Admin: 11/22/18 08:45 Dose: Not Given Documented by: Apixaban (Eliquis) 5 mg PO BID [facility] Last Admin: 11/22/18 08:41 Dose: Not Given Documented by: Cephalexin HCl (Keflex) 500 mg PO QID [facility]; Protocol Last Admin: 11/22/18 08:42 Dose: Not Given Documented by: Dextrose (Dextrose 50%) 0 ml IV UD PRN PRN Reason: Hypoglycemia Diagnostic Test (Pha) (Accu-Chek) 1 each FS ACHS [facility] Last Admin: 11/22/18 14:01 Dose: 1 each Documented by: Docusate Sodium (Colace) 100 mg PO BID [facility] Last Admin: 11/22/18 08:41 Dose: Not Given Documented by: Duloxetine HCl (Cymbalta) 30 mg PO DAILY [facility] Last Admin: 11/22/18 08:41 Dose: Not Given Documented by: Glucose (Insta-Glucose) 15 gm PO PRN PRN PRN Reason: Hypoglycemia Guaifenesin/Codeine Phosphate (Robitussin Ac) 10 ml PO Q4HP PRN PRN Reason: Cough Hydralazine HCl (Apresoline) 10 mg IV Q4-6HP PRN PRN Reason: Hypertension Hydromorphone HCl (Dilaudid) 0 mg IV Q4HP PRN PRN Reason: PAIN LEVEL > 6 Last Admin: 11/22/18 11:00 Dose: 0.5 mg Documented by: Magnesium Sulfate (Magnesium Sulfate) 2 gm in 50 mls @ 50 mls/hr IV UD PRN PRN Reason: MG = or < 1.7 Acetaminophen (Ofirmev) 1,000 mg in 100 mls @ 200 mls/hr IV Q6HP PRN PRN Reason: PAIN/FEVER > 101 Insulin Glargine (Lantus) 20 unit SQ DAILY [facility] Last Admin: 11/22/18 14:35 Dose: 20 units Documented by: Insulin Human Lispro (Humalog) 0 unit SQ ACHS [facility]; Protocol Last Admin: 11/22/18 14:36 Dose: 2 unit Documented by: Iron Carb/Multivit/[place]/Folic Acid (Multivitamin W/Minerals) 1 tab PO DAILY [facility] Last Admin: 11/22/18 08:55 Dose: 1 tab Documented by: Loperamide HCl (Imodium) 2 mg PO UD PRN PRN Reason: Diarrhea Ondansetron HCl (Zofran) 4 mg IV Q4-6HP PRN PRN Reason: Nausea And Vomiting Potassium Chloride (Klor-Con) 40 meq PO DAILYP PRN PRN Reason: K+ < 3.5 Senna/Docusate Sodium (Senna Plus Tablet) 1 tab PO HS [facility] Last Admin: 11/21/18 23:47 Dose: Not Given Documented by: Sitagliptin Phosphate (Januvia) 100 mg PO DAILY [facility] Last Admin: 11/22/18 08:55 Dose: 100 mg Documented by: Sodium Chloride (Saline Flush) 10 ml IV Q8 [facility] Last Admin: 11/22/18 04:35 Dose: 10 ml Documented by: Tramadol HCl (Ultram) 50 mg PO TID [facility] Last Admin: 11/22/18 14:38 Dose: Not Given Documented by: Trazodone HCl (Desyrel) 50 mg PO HSP PRN PRN Reason: Insomnia Last Admin: 11/20/18 20:56 Dose: 50 mg Documented by: Medical - PN: A/P - Time Spent With Patient Total time spent is greater than 50% in coordination of care (as documented) at patient's floor/unit and/or counseling patient: 25 - 35 minutes (1) Asymptomatic hypertensive urgency Status: Acute Assessment and plan: * Hospital-acquired delirium-avoid sedative-hypnotics, frequent reorientation and bright lights * Acute renal colic with obstructive uropathy-status post renal stenting. Currently pain-free. * DM type II-much improved control on increased basal insulin. Continue sliding-scale/ CCD * Hypertensive urgency-clinically resolved. Well-controlled on Norvasc. * Acute kidney injury secondary to obstructive uropathy. Creatinine 1.6. Continue monitoring * Atrial fibrillation rate controlled-anticoagulation on apixaban * Neuropathy pain involving lower extremity, start Cymbalta * Lt Big toenail bed cellulitis. MRSA on cultures. Start Bactrim. Recent toenail removal. * Full code Plan * Start Bactrim * Continue basal prandial insulin * Continue Cymbalta * Wound care per Dr. Holley * Pain management * Pre-existing medical condition management and home meds as above Current Visit: Yes Medical - PN: Qual - Stroke Symptom Onset Unknown: No - VTE Deep Vein Thrombosis/Pulmonary Embolism Present on Admission: No
[2018-11-22] MEDS: SULFAMETHOXAZOLE/TRIMETHOPRIM 1 TABLET PO SCH ×3 (15:49→21:53)
--- NOTE | 2018-11-22 17:10 | General Surgery Consult Note ---
History of Present Illness Patient information: Note initiated : 11/22/18 at 5:04 pm Service Date, if different from initiated Date: [] Patient: Wolf Miles 83 y/o M admitted on 11/19/18 for Nausea, Vomiting x4- 5 hours. Chief Complaint: [] Consult date: 11/20/18 Requesting physician: Chase Mclain (Wound Care, Left foot toe wound.) History of present illness: I saw this patient earlier with Serene FELICIANO, In patient Wound Care Nurse. Have followed this patient. His local wound swab is positive for MRSA, Discussed MRSA precautions and care with [facility] Med Surg floor. Essentially this is a gentleman who has been in hospital for past few days. He is S/P Ureteral Stent placement for obstructive uropathy by Dr. Vaughn. Patient has dementia and multiple other medical conditions appropriately managed. Medications and Allergies Home Medications Medication Instructions Recorded Confirmed Type Right foot prosthesis #1 ea 04/03/18 10/31/18 Rx diabetic shoes #1 ea 04/03/18 10/31/18 Rx tramadol 50 mg tablet 50 mg PO TID #90 tab 08/31/18 11/20/18 Rx apixaban 5 mg tablet 5 mg PO BID #180 tab 09/03/18 11/20/18 Rx Cephalexin [Keflex] 500 mg PO TID 11/20/18 11/20/18 History Ibuprofen [Motrin] 400 mg PO Q6H PRN 11/20/18 11/20/18 History Loperamide HCl [Anti-Diarrheal] 2 mg PO PRN PRN MDD 8 11/20/18 11/20/18 History Allergies Allergy/AdvReac Type Severity Reaction Status Date / Time No Known Drug Allergies Allergy Verified 11/20/18 03:04 Exam Temp Pulse Resp BP Pulse Ox 97.3 F 82 18 131/72 98 11/22/18 15:48 11/22/18 15:48 11/22/18 15:48 11/22/18 15:48 11/22/18 15:48 - General physical appearance well developed, well nourished, no distress - Eyes PERRL, normal ocular movement - ENT normal pinna, normal mucosa, no congestion - Head Head exam IM: Present: atraumatic, normal inspection - Neck no masses, trachea midline, no venous distension - Cardiovascular Cardiovascular exam IM: Present: normal rate and rhythm - Respiratory normal respiratory effort - Abdomen Abdomen: Present: soft, non tender, bowel sounds - Integumentary Present: other (Open dry wound Left great toe at site of nail bed. NO purulence, No cellulitis, NO warmth.) - Neurologic Present: other (Moves all extremities purposefully. No focal neurological deficits.) - Musculoskeletal Present: normal posture - Psychiatric Present: other (Unable to determine. Has Dementia. Have NOT been able to speak with family member. ) Results - Labs 11/23/18 08:42 11/23/18 08:42 Abnormal lab results 11/22/18 11/22/18 Range/Units 03:53 03:53 RBC 3.22 L (4.50-5.90) M/mcL Hgb 10.2 L (13.5-16.5) g/dL Hct 30.4 L (41.0-55.0) % RDW 15.1 H (11.5-14.5) % Seg Neutrophils % 84 H (38-78) % Lymphocytes % 7 L (15-49) % RBC Morphology Abnorm A (NORMAL) Polychromasia 1+ A (NONE SEEN) Anisocytosis 1+ A (NONE SEEN) BUN 36 H (8-23) mg/dl Creatinine 1.6 H (0.7-1.2) mg/dl Glucose 147 H (70-105) mg/dL Calcium 8.1 L (8.6-10.4) mg/dl Diabetes panel 11/22/18 Range/Units 03:53 Sodium 139 (133-145) mmol/L Potassium 3.8 (3.3-5.1) mmol/L Chloride 104 (96-108) mmol/L Carbon Dioxide 22 (22-30) mmol/L BUN 36 H (8-23) mg/dl Creatinine 1.6 H (0.7-1.2) mg/dl Glucose 147 H (70-105) mg/dL Calcium 8.1 L (8.6-10.4) mg/dl AST 13 (0-37) U/l ALT 14 (0-40) U/l Alkaline Phosphatase 53 (39-117) U/L Total Protein 6.1 (5.9-8.4) gm/dL Albumin 3.5 (3.2-5.2) gm/dL Triglycerides 82 (<150) mg/dl Calcium panel 11/22/18 Range/Units 03:53 Calcium 8.1 L (8.6-10.4) mg/dl Phosphorus 4.0 (2.7-4.5) mg/dL Albumin 3.5 (3.2-5.2) gm/dL Pituitary panel 11/22/18 Range/Units 03:53 Sodium 139 (133-145) mmol/L Potassium 3.8 (3.3-5.1) mmol/L Chloride 104 (96-108) mmol/L Carbon Dioxide 22 (22-30) mmol/L BUN 36 H (8-23) mg/dl Creatinine 1.6 H (0.7-1.2) mg/dl Glucose 147 H (70-105) mg/dL Calcium 8.1 L (8.6-10.4) mg/dl Adrenal panel 11/22/18 Range/Units 03:53 Sodium 139 (133-145) mmol/L Potassium 3.8 (3.3-5.1) mmol/L Chloride 104 (96-108) mmol/L Carbon Dioxide 22 (22-30) mmol/L BUN 36 H (8-23) mg/dl Creatinine 1.6 H (0.7-1.2) mg/dl Glucose 147 H (70-105) mg/dL Calcium 8.1 L (8.6-10.4) mg/dl Total Bilirubin 0.4 (0.0-1.0) mg/dL AST 13 (0-37) U/l ALT 14 (0-40) U/l Alkaline Phosphatase 53 (39-117) U/L Total Protein 6.1 (5.9-8.4) gm/dL Albumin 3.5 (3.2-5.2) gm/dL All other labs normal. 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 See List. MRSA exposure\ Ulcer over Left great toe nail bed ( Chronic ) Plan: Skin, Nail and Hair hygiene. Hand washing and MRSA precautions. Will see again on a PRN basis. Status: Chronic Priority: Low Qualifiers: Non-pressure ulcer stage: unspecified non-pressure ulcer stage
[2018-11-22] MEDS: SENNOSIDES/DOCUSATE SODIUM 1 TAB TABLET PO SCH (20:41)
[2018-11-22] MEDS: traZODone HCL 50 MG TABLET PO PRN (20:47)
[2018-11-23] MEDS ORDERED: OLANZapine 10 MG VIAL IM ONE (03:41)
[2018-11-23] MEDS ORDERED: OLANZapine 10 MG VIAL IM SCH (03:45)
[2018-11-23] MEDS: 0.9 % SODIUM CHLORIDE 10 ML SYRINGE IV SCH ×3 (04:25→22:27)
[2018-11-23] MEDS: HYDROmorphone 2 MG/ML VIAL IV PRN (07:20)
[2018-11-23] MEDS: INSULIN LISPRO 1 UNIT/0.01 ML UNIT SQ SCH ×4 (07:21→20:57)
[2018-11-23] MEDS: DULoxetine 30 MG CAPSULE PO SCH (09:00)
[2018-11-23] MEDS: SULFAMETHOXAZOLE/TRIMETHOPRIM 1 TABLET PO SCH ×2 (09:05→20:21)
[2018-11-23] MEDS: APIXABAN 5 MG TABLET PO SCH ×2 (09:06→20:22)
[2018-11-23] MEDS: DOCUSATE SODIUM 100 MG CAPSULE PO SCH ×2 (09:06→20:27)
[2018-11-23] MEDS: MULTIVIT,THER IRON,CA,FA & MIN 1 TABLET PO SCH (09:07)
[2018-11-23] MEDS: sitaGLIPtin 100 MG TABLET PO SCH (09:07)
[2018-11-23] MEDS: amLODIPine 5 MG TABLET PO SCH (09:07)
[2018-11-23] MEDS: traMADol 50 MG TABLET PO SCH ×3 (09:08→20:22)
[2018-11-23] MEDS: INSULIN GLARGINE, HUMAN 1 UNIT/0.01 ML SQ SCH (09:09)
[2018-11-23] MEDS: HYDROCODONE/APAP 7.5/325MG TABLET PO PRN ×3 (10:27→22:28)
[2018-11-23 11:08] LABS: Mean Corpuscular HGB Conc 33.2 g/dL (31.0-36.0); Mean Platelet Volume 7.6 fL (7.4-10.4); Platelet Count 214 K/mcL (140-440); RBC 3.51 M/mcL (4.50-5.90); Red Cell Distribution Width 15.6 % (11.5-14.5); WBC 9.8 K/mcL (4.5-11.0)
[2018-11-23 11:12] LABS: ALT/SGPT 24 U/l (0-40); AST/SGOT 23 U/l (0-37); Albumin 3.7 gm/dL (3.2-5.2); Albumin/Globulin Ratio 1.3 (1.0-2.3); Alkaline Phosphatase 67 U/L (39-117); Bilirubin,Direct < 0.2 mg/dL (0.0-0.3); Bilirubin,Total 0.8 mg/dL (0.0-1.0); Blood Urea Nitrogen 25 mg/dl (8-23); Calcium 8.5 mg/dl (8.6-10.4); Carbon Dioxide 23 mmol/L (22-30); Chloride 102 mmol/L (96-108); Globulin 2.9 gm/dL (2.2-3.7); Glomerular Filtration Rate 51; Glucose 100 mg/dL (70-105); Lactate Dehydrogenase 252 U/L (94-250); Phosphorous 2.7 mg/dL (2.7-4.5); Triglycerides 100 mg/dl (<150); Uric Acid 4.5 mg/dL (2.5-8.0)
[2018-11-23 12:15] LABS: Lymphocytes % 3 % (15-49); Monocytes % (Manual) 11 % (1-12); Platelet Estimate PN (NORMAL); RBC Morphology NORMAL (NORMAL); Segmented Neutrophils % 86 % (38-78)
--- NOTE | 2018-11-23 15:28 | Internal Med Progress Note ---
Medical - PN: Subj Patient information: Note initiated : 11/23/18 at 3:25 pm Service Date, if different from initiated Date: [] Patient: Wolf Miles 83 y/o M admitted on 11/19/18 for Nausea, Vomiting x4- 5 hours. Chief Complaint: [] Interval history: Mr. Miles is a 83 year old M who presents to the ER with progressive abdominal pain and nausea vomiting that started abruptly this evening. Pain is described as 8 out of 10 waxing and waning in nature mostly on the right side from groin to groin. Patient has been intermittently confused and when asked details he said the symptoms has been ongoing for the last 6 weeks including abdominal discomfort. Initial work-up in the ER was consistent with nephrolithiasis with obstructive uropathy/hydronephrosis. Patient was also found to be hypertensive over 200. Dr. Vaughn urology was consulted and requested hospitalist service to admit the patient while patient will undergo cystoscopy/stenting in a.m. The time of evaluation no family members are present. Patient is hard of hearing and visually challenged. He Is a poor historian but was able to endorse history as above 11/20-patient doing well. Weaning nicardipine drip with systolics around 160s. Due for cystoscopy 3 PM. Overnight fever chills. Pain in good control. Remains afebrile. White count up trending at 10.8. Creatinine down to 1.2. N.p.o. patient was unable to void overnight and Kruase's was placed after bladder scan revealed 900 cc. Remains in A. fib 11/21-patient doing well. Intermittent confused. Patient concerned about possible gabapentin reaction. Complains of pain around the great toenail infection. Continue antibiotic coverage. Status post ureteric stent placement. No family members at bedside. Ongoing PT OT/nutrition support. Anticipate discharge in 24 to 48 hours with clinical improvement. Creatinine 1.6. Systolics around 120. Improved on Norvasc. Blood sugars around 250. Increase basal insulin. Continue CC diet. Start Cymbalta for neuropathic pain 11/22-patient remains confused. at bedside. Discussed option for transfer to intermediate home once clinically improved. in agreement. Case discussed with case management. No overnight fever chills. Intermittent episodes of anxiety agitation and aggressive behavior. Remains disoriented 11/23 -patient clinically improving. Able to ambulate with physical therapy. Pain much improved. Ongoing wound care for toe cellulitis. Continue antibiotic coverage. Much more lucid and alert. - Constitutional Vitals: Vital Signs Temp Pulse Resp BP Pulse Ox 97.1 F 78 16 155/72 98 11/23/18 11:34 11/23/18 11:34 11/23/18 11:34 11/23/18 11:34 11/23/18 11:34 Period Temp Pulse Resp BP Sys/Porter Pulse Ox Last 24 Hr 97.1 F-99.0 F 66-92 16-20 116-196/60-92 92-98 Intake and Output 11/23/18 11/23/18 11/23/18 05:59 13:59 21:59 Intake Total 0 1440 Output Total 477 104 Balance -477 1336 Weight 208 lb 9 oz Patient Weight 11/24/18 05:59 Weight 208 lb 9 oz Intake & Output: Intake & Output 11/23/18 11/23/18 11/23/18 05:59 13:59 21:59 Intake Total 0 1440 Output Total 477 104 Balance -477 1336 Weight 208 lb 9 oz Intake: Oral 0 1440 Output: Void Amount 475 100 # of times incontinent of urine 2 4 Other: Meal Breakfast Percent of Meal Consumed 100% Feeding Ability Total Assistance Urine Appearance Hematuria Hematuria Urine Color Dark Radha Tea Colored Urine Odor Normal Stool Size Smear Stool Color Brown General appearance: no acute distress Exam: Alert oriented No anxiety Ambulating No joint swelling No lymphedema Medical - PN: Obj Da - Labs CBC & Chem 7: 11/23/18 08:42 11/23/18 08:42 Labs: Abnormal Lab Results 11/23/18 11/23/18 11/22/18 08:42 08:42 03:53 RBC 3.51 L Hgb 11.0 L Hct 33.0 L RDW 15.6 H Seg Neutrophils % 86 H Lymphocytes % 3 L RBC Morphology Polychromasia Anisocytosis BUN 25 H 36 H Creatinine 1.3 H 1.6 H Glucose 147 H Calcium 8.5 L 8.1 L Lactate Dehydrogenase 252 H 11/22/18 11/21/18 11/21/18 03:53 03:15 03:15 RBC 3.22 L 3.48 L Hgb 10.2 L 10.9 L Hct 30.4 L 32.6 L RDW 15.1 H 15.5 H Seg Neutrophils % 84 H 97 H Lymphocytes % 7 L RBC Morphology Abnorm A Polychromasia 1+ A Anisocytosis 1+ A BUN 26 H Creatinine 1.6 H Glucose 318 H Calcium 8.1 L Lactate Dehydrogenase 269 H Meds: Medications Acetaminophen (Tylenol) 650 mg PO Q4-6HP PRN PRN Reason: PAIN/FEVER > 101 Last Admin: 11/22/18 08:47 Dose: 650 mg Documented by: Hydrocodone Bitart/Acetaminophen ([place] 7.5/325mg) 1 - 2 tab PO Q4HP PRN PRN Reason: PAIN LEVEL 3-6 Last Admin: 11/23/18 10:27 Dose: 2 tab Documented by: Amlodipine Besylate (Norvasc) 5 mg PO DAILY [facility] Last Admin: 11/23/18 09:07 Dose: 5 mg Documented by: Apixaban (Eliquis) 5 mg PO BID [facility] Last Admin: 11/23/18 09:06 Dose: 5 mg Documented by: Bacitracin (Bacitracin Topical Oint) 1 dose TOPICAL DAILY [facility] Dextrose (Dextrose 50%) 0 ml IV UD PRN PRN Reason: Hypoglycemia Diagnostic Test (Pha) (Accu-Chek) 1 each FS ACHS [facility] Last Admin: 11/23/18 11:17 Dose: 1 each Documented by: Docusate Sodium (Colace) 100 mg PO BID [facility] Last Admin: 11/23/18 09:06 Dose: 100 mg Documented by: Duloxetine HCl (Cymbalta) 30 mg PO DAILY [facility] Last Admin: 11/23/18 09:00 Dose: Not Given Documented by: Glucose (Insta-Glucose) 15 gm PO PRN PRN PRN Reason: Hypoglycemia Guaifenesin/Codeine Phosphate (Robitussin Ac) 10 ml PO Q4HP PRN PRN Reason: Cough Hydralazine HCl (Apresoline) 10 mg IV Q4-6HP PRN PRN Reason: Hypertension Hydromorphone HCl (Dilaudid) 0 mg IV Q4HP PRN PRN Reason: PAIN LEVEL > 6 Last Admin: 11/23/18 07:20 Dose: 0.5 mg Documented by: Magnesium Sulfate (Magnesium Sulfate) 2 gm in 50 mls @ 50 mls/hr IV UD PRN PRN Reason: MG = or < 1.7 Acetaminophen (Ofirmev) 1,000 mg in 100 mls @ 200 mls/hr IV Q6HP PRN PRN Reason: PAIN/FEVER > 101 Insulin Glargine (Lantus) 20 unit SQ DAILY [facility] Last Admin: 11/23/18 09:09 Dose: 20 units Documented by: Insulin Human Lispro (Humalog) 0 unit SQ ACHS [facility]; Protocol Last Admin: 11/23/18 11:30 Dose: 2 unit Documented by: Iron Carb/Multivit/[place]/Folic Acid (Multivitamin W/Minerals) 1 tab PO DAILY [facility] Last Admin: 11/23/18 09:07 Dose: 1 tab Documented by: Loperamide HCl (Imodium) 2 mg PO UD PRN PRN Reason: Diarrhea Ondansetron HCl (Zofran) 4 mg IV Q4-6HP PRN PRN Reason: Nausea And Vomiting Potassium Chloride (Klor-Con) 40 meq PO DAILYP PRN PRN Reason: K+ < 3.5 Senna/Docusate Sodium (Senna Plus Tablet) 1 tab PO HS [facility] Last Admin: 11/22/18 20:41 Dose: Not Given Documented by: Sitagliptin Phosphate (Januvia) 100 mg PO DAILY [facility] Last Admin: 11/23/18 09:07 Dose: 100 mg Documented by: Sodium Chloride (Saline Flush) 10 ml IV Q8 [facility] Last Admin: 11/23/18 14:30 Dose: 10 ml Documented by: Tramadol HCl (Ultram) 50 mg PO TID [facility] Last Admin: 11/23/18 09:08 Dose: 50 mg Documented by: Trazodone HCl (Desyrel) 50 mg PO HSP PRN PRN Reason: Insomnia Last Admin: 11/20/18 20:56 Dose: 50 mg Documented by: Trimethoprim/Sulfamethoxazole (Bactrim Ds) 1 tab PO BID [facility]; Protocol Last Admin: 11/23/18 09:05 Dose: 1 tab Documented by: Medical - PN: A/P - Time Spent With Patient Total time spent is greater than 50% in coordination of care (as documented) at patient's floor/unit and/or counseling patient: 25 - 35 minutes (1) Asymptomatic hypertensive urgency Status: Acute Assessment and plan: * Hospital-acquired delirium-clinical improvement noted last 24 hours. Continue to avoid sedative-hypnotics, frequent reorientation and bright lights * Acute renal colic with obstructive uropathy-status post renal stenting. Currently pain-free. * Acute kidney injury secondary to obstructive uropathy. Creatinine downtrending now at 1.3 * Deconditioning continue PT OT/nutrition support * Lt Big toenail bed cellulitis. MRSA on cultures. Continue Bactrim. Recent toenail removal. Ongoing wound care per wound team * DM type II-much improved control on increased basal insulin. Continue sliding-scale/ CCD * Hypertensive urgency-clinically resolved. Well-controlled on Norvasc. * Atrial fibrillation rate controlled-anticoagulation on apixaban * Neuropathy pain involving lower extremity, continue Cymbalta * Full code Plan * Continue Bactrim for 5 days * Continue basal prandial insulin * Wound care per Dr. Holley * Pain management * Pre-existing medical condition management and home meds as above Current Visit: Yes Medical - PN: Qual - Stroke Symptom Onset Unknown: No - VTE Deep Vein Thrombosis/Pulmonary Embolism Present on Admission: No
[2018-11-23] MEDS: SENNOSIDES/DOCUSATE SODIUM 1 TAB TABLET PO SCH (20:27)
[2018-11-24] MEDS: HYDROCODONE/APAP 7.5/325MG TABLET PO PRN ×5 (03:57→23:13)
[2018-11-24] MEDS: 0.9 % SODIUM CHLORIDE 10 ML SYRINGE IV SCH ×3 (04:00→20:40)
[2018-11-24 05:48] LABS: Hematocrit 32.7 % (41.0-55.0); Hemoglobin 10.7 g/dL (13.5-16.5); Mean Cell Volume 93.2 fL (80.0-100.0); Mean Corpuscular HGB Conc 32.7 g/dL (31.0-36.0); Mean Platelet Volume 7.6 fL (7.4-10.4); Platelet Count 189 K/mcL (140-440); RBC 3.51 M/mcL (4.50-5.90); Red Cell Distribution Width 15.4 % (11.5-14.5); WBC 5.8 K/mcL (4.5-11.0)
[2018-11-24 06:30] LABS: Eosinophils % (Manual) 6 % (0-7); Hypochromasia 1+ (NONE SEEN); Lymphocytes % 19 % (15-49); Monocytes % (Manual) 16 % (1-12); Platelet Estimate NORMAL (NORMAL); RBC Morphology ABNORM (NORMAL); Segmented Neutrophils % 59 % (38-78)
[2018-11-24 06:31] LABS: ALT/SGPT 21 U/l (0-40); AST/SGOT 25 U/l (0-37); Albumin 3.2 gm/dL (3.2-5.2); Albumin/Globulin Ratio 1.1 (1.0-2.3); Alkaline Phosphatase 51 U/L (39-117); Bilirubin,Direct < 0.2 mg/dL (0.0-0.3); Bilirubin,Total 0.5 mg/dL (0.0-1.0); Blood Urea Nitrogen 23 mg/dl (8-23); Calcium 8.3 mg/dl (8.6-10.4); Carbon Dioxide 19 mmol/L (22-30); Chloride 107 mmol/L (96-108); Glomerular Filtration Rate 46; Glucose 122 mg/dL (70-105); Lactate Dehydrogenase 269 U/L (94-250); Phosphorous 4.1 mg/dL (2.7-4.5); Triglycerides 82 mg/dl (<150); Uric Acid 4.3 mg/dL (2.5-8.0)
[2018-11-24] MEDS: INSULIN GLARGINE, HUMAN 1 UNIT/0.01 ML SQ SCH (08:26)
[2018-11-24] MEDS: MULTIVIT,THER IRON,CA,FA & MIN 1 TABLET PO SCH (08:27)
[2018-11-24] MEDS: DOCUSATE SODIUM 100 MG CAPSULE PO SCH ×2 (08:27→20:41)
[2018-11-24] MEDS: SULFAMETHOXAZOLE/TRIMETHOPRIM 1 TABLET PO SCH ×2 (08:27→20:28)
[2018-11-24] MEDS: amLODIPine 5 MG TABLET PO SCH (08:27)
[2018-11-24] MEDS: traMADol 50 MG TABLET PO SCH ×3 (08:28→20:28)
[2018-11-24] MEDS: APIXABAN 5 MG TABLET PO SCH ×2 (08:28→20:28)
[2018-11-24] MEDS: sitaGLIPtin 100 MG TABLET PO SCH (08:28)
[2018-11-24] MEDS: INSULIN LISPRO 1 UNIT/0.01 ML UNIT SQ SCH ×4 (08:29→20:54)
[2018-11-24] MEDS: DULoxetine 30 MG CAPSULE PO SCH (08:32)
--- NOTE | 2018-11-24 09:55 | Internal Med Progress Note ---
Medical - PN: Subj Patient information: Note initiated : 11/24/18 at 9:52 am Service Date, if different from initiated Date: [] Patient: Wolf Miles 83 y/o M admitted on 11/19/18 for Nausea, Vomiting x4- 5 hours. Chief Complaint: [] Interval history: Mr. Miles is a 83 year old M who presents to the ER with progressive abdominal pain and nausea vomiting that started abruptly this evening. Pain is described as 8 out of 10 waxing and waning in nature mostly on the right side from groin to groin. Patient has been intermittently confused and when asked details he said the symptoms has been ongoing for the last 6 weeks including abdominal discomfort. Initial work-up in the ER was consistent with nephrolithiasis with obstructive uropathy/hydronephrosis. Patient was also found to be hypertensive over 200. Dr. Vaughn urology was consulted and requested hospitalist service to admit the patient while patient will undergo cystoscopy/stenting in a.m. The time of evaluation no family members are present. Patient is hard of hearing and visually challenged. He Is a poor historian but was able to endorse history as above 11/20-patient doing well. Weaning nicardipine drip with systolics around 160s. Due for cystoscopy 3 PM. Overnight fever chills. Pain in good control. Remains afebrile. White count up trending at 10.8. Creatinine down to 1.2. N.p.o. patient was unable to void overnight and Krause's was placed after bladder scan revealed 900 cc. Remains in A. fib 11/21-patient doing well. Intermittent confused. Patient concerned about possible gabapentin reaction. Complains of pain around the great toenail infection. Continue antibiotic coverage. Status post ureteric stent placement. No family members at bedside. Ongoing PT OT/nutrition support. Anticipate discharge in 24 to 48 hours with clinical improvement. Creatinine 1.6. Systolics around 120. Improved on Norvasc. Blood sugars around 250. Increase basal insulin. Continue CC diet. Start Cymbalta for neuropathic pain 11/22-patient remains confused. at bedside. Discussed option for transfer to senior living home once clinically improved. in agreement. Case discussed with case management. No overnight fever chills. Intermittent episodes of anxiety agitation and aggressive behavior. Remains disoriented 11/23 -patient clinically improving. Able to ambulate with physical therapy. Pain much improved. Ongoing wound care for toe cellulitis. Continue antibiotic coverage. Much more lucid and alert. 11/24-patient ambulating with therapy. Tolerating diet. Much lucid alert. No overnight fever chills or concerns per nursing staff. Patient however had a rough night secondary to generalized pain. Tolerating diet. Intermittent episodes of confusion. Off Cymbalta. Anticipate discharge in 48 hours to SNF. Continuing wound care/oral antibiotic. Creatinine 1.4 - Constitutional Vitals: Vital Signs Temp Pulse Resp BP Pulse Ox 97.8 F 78 16 142/72 98 11/24/18 08:00 11/24/18 08:00 11/24/18 08:00 11/24/18 08:00 11/24/18 08:00 Period Temp Pulse Resp BP Sys/Porter Pulse Ox Last 24 Hr 97.0 F-99.1 F 68-92 16-20 134-156/66-78 91-98 Intake and Output 11/23/18 11/24/18 11/24/18 21:59 05:59 13:59 Intake Total 840 720 100 Output Total 376 812 Balance 464 -92 100 Weight 205 lb 8 oz Intake & Output: Intake & Output 11/23/18 11/24/18 11/24/18 21:59 05:59 13:59 Intake Total 840 720 100 Output Total 376 812 Balance 464 -92 100 Weight 205 lb 8 oz Intake: IV 100 Oral 840 720 Output: Void Amount 375 810 # of times incontinent of urine 1 2 Other: Meal Dinner Percent of Meal Consumed 75% Feeding Ability Assist with Tray Set Up Urine Appearance Clear Urine Color Red Brown Red Brown Dark Radha Urine Odor Normal Stool Size Smear Smear Stool Color Brown Brown Stool Consistency Soft Soft # Voids 1 # Bowel Movements 1 General appearance: no acute distress Exam: Nonlabored breathing Alert oriented No anxiety No lower extremity lymphedema Medical - PN: Obj Da - Labs CBC & Chem 7: 11/24/18 04:23 11/24/18 04:23 Labs: Abnormal Lab Results 11/24/18 11/24/18 11/23/18 04:23 04:23 08:42 RBC 3.51 L Hgb 10.7 L Hct 32.7 L RDW 15.4 H Seg Neutrophils % Lymphocytes % Monocytes % (Manual) 16 H RBC Morphology Abnorm A Polychromasia Hypochromasia 1+ A Anisocytosis Carbon Dioxide 19 L BUN 25 H Creatinine 1.4 H 1.3 H Glucose 122 H Calcium 8.3 L 8.5 L Lactate Dehydrogenase 269 H 252 H 11/23/18 11/22/18 11/22/18 08:42 03:53 03:53 RBC 3.51 L 3.22 L Hgb 11.0 L 10.2 L Hct 33.0 L 30.4 L RDW 15.6 H 15.1 H Seg Neutrophils % 86 H 84 H Lymphocytes % 3 L 7 L Monocytes % (Manual) RBC Morphology Abnorm A Polychromasia 1+ A Hypochromasia Anisocytosis 1+ A Carbon Dioxide BUN 36 H Creatinine 1.6 H Glucose 147 H Calcium 8.1 L Lactate Dehydrogenase Meds: Medications Acetaminophen (Tylenol) 650 mg PO Q4-6HP PRN PRN Reason: PAIN/FEVER > 101 Last Admin: 11/22/18 08:47 Dose: 650 mg Documented by: Hydrocodone Bitart/Acetaminophen ([place] 7.5/325mg) 1 - 2 tab PO Q4HP PRN PRN Reason: PAIN LEVEL 3-6 Last Admin: 11/24/18 04:50 Dose: 1 tab Documented by: Amlodipine Besylate (Norvasc) 5 mg PO DAILY [facility] Last Admin: 11/24/18 08:27 Dose: 5 mg Documented by: Apixaban (Eliquis) 5 mg PO BID [facility] Last Admin: 11/24/18 08:28 Dose: 5 mg Documented by: Bacitracin (Bacitracin Topical Oint) 1 dose TOPICAL DAILY [facility] Dextrose (Dextrose 50%) 0 ml IV UD PRN PRN Reason: Hypoglycemia Diagnostic Test (Pha) (Accu-Chek) 1 each FS ACHS [facility] Last Admin: 11/24/18 08:26 Dose: 1 each Documented by: Docusate Sodium (Colace) 100 mg PO BID [facility] Last Admin: 11/24/18 08:27 Dose: 100 mg Documented by: Duloxetine HCl (Cymbalta) 30 mg PO DAILY [facility] Last Admin: 11/24/18 08:32 Dose: Not Given Documented by: Glucose (Insta-Glucose) 15 gm PO PRN PRN PRN Reason: Hypoglycemia Guaifenesin/Codeine Phosphate (Robitussin Ac) 10 ml PO Q4HP PRN PRN Reason: Cough Hydralazine HCl (Apresoline) 10 mg IV Q4-6HP PRN PRN Reason: Hypertension Hydromorphone HCl (Dilaudid) 0 mg IV Q4HP PRN PRN Reason: PAIN LEVEL > 6 Last Admin: 11/23/18 07:20 Dose: 0.5 mg Documented by: Magnesium Sulfate (Magnesium Sulfate) 2 gm in 50 mls @ 50 mls/hr IV UD PRN PRN Reason: MG = or < 1.7 Acetaminophen (Ofirmev) 1,000 mg in 100 mls @ 200 mls/hr IV Q6HP PRN PRN Reason: PAIN/FEVER > 101 Last Infusion: 11/24/18 06:07 Dose: Infused Documented by: Insulin Glargine (Lantus) 20 unit SQ DAILY [facility] Last Admin: 11/24/18 08:26 Dose: 20 units Documented by: Insulin Human Lispro (Humalog) 0 unit SQ ACHS [facility]; Protocol Last Admin: 11/24/18 08:29 Dose: Not Given Documented by: Iron Carb/Multivit/[place]/Folic Acid (Multivitamin W/Minerals) 1 tab PO DAILY [facility] Last Admin: 11/24/18 08:27 Dose: 1 tab Documented by: Loperamide HCl (Imodium) 2 mg PO UD PRN PRN Reason: Diarrhea Ondansetron HCl (Zofran) 4 mg IV Q4-6HP PRN PRN Reason: Nausea And Vomiting Potassium Chloride (Klor-Con) 40 meq PO DAILYP PRN PRN Reason: K+ < 3.5 Senna/Docusate Sodium (Senna Plus Tablet) 1 tab PO HS [facility] Last Admin: 11/23/18 20:27 Dose: Not Given Documented by: Sitagliptin Phosphate (Januvia) 100 mg PO DAILY [facility] Last Admin: 11/24/18 08:28 Dose: 100 mg Documented by: Sodium Chloride (Saline Flush) 10 ml IV Q8 [facility] Last Admin: 11/24/18 04:00 Dose: 10 ml Documented by: Tramadol HCl (Ultram) 50 mg PO TID [facility] Last Admin: 11/24/18 08:28 Dose: 50 mg Documented by: Trazodone HCl (Desyrel) 50 mg PO HSP PRN PRN Reason: Insomnia Last Admin: 11/20/18 20:56 Dose: 50 mg Documented by: Trimethoprim/Sulfamethoxazole (Bactrim Ds) 1 tab PO BID [facility]; Protocol Last Admin: 11/24/18 08:27 Dose: 1 tab Documented by: Medical - PN: A/P - Time Spent With Patient Total time spent is greater than 50% in coordination of care (as documented) at patient's floor/unit and/or counseling patient: 25 - 35 minutes (1) Asymptomatic hypertensive urgency Status: Acute Assessment and plan: * Hospital-acquired delirium-clinically resolved. Continue to avoid sedative- hypnotics, frequent reorientation and bright lights * Acute renal colic with obstructive uropathy-status post renal stenting. Currently pain-free. * Acute kidney injury secondary to obstructive uropathy. Creatinine down to baseline * Deconditioning continue PT OT/nutrition support. Anticipate SNF transfer in 24 hours * Lt Big toenail bed cellulitis. MRSA on wound cultures. Continue Bactrim for additional 5 days. Ongoing wound care per wound team * DM type II-much improved control on increased basal insulin. Continue sliding-scale/ CCD * Hypertensive urgency-clinically resolved. Blood pressure now well-controlled on Norvasc. * Atrial fibrillation rate controlled-anticoagulation on apixaban * Neuropathy pain involving lower extremity, continue Cymbalta * Full code Plan * Continue Bactrim for 5 days * Wound care per Dr. Holley * Pain management * anticoagulation * Pre-existing medical condition management and home meds as above Current Visit: Yes Medical - PN: Qual - Stroke Symptom Onset Unknown: No - VTE Deep Vein Thrombosis/Pulmonary Embolism Present on Admission: No
[2018-11-24] MEDS ORDERED: BACITRACIN TOPICAL OINT 15 GM TUBE TOPICAL SCH (11:00)
[2018-11-24] MEDS ORDERED: LOPERAMIDE 2 MG CAPSULE PO PRN (14:54)
[2018-11-24] MEDS ORDERED: ONDANSETRON 4 MG/2 ML VIAL IV PRN (14:54)
[2018-11-24] MEDS ORDERED: DEXTROSE 31 GM ORAL.SUSP PO PRN (14:54)
[2018-11-24] MEDS ORDERED: MAGNESIUM SULFATE 2 GM/50 ML BAG IV PRN (14:54)
[2018-11-24] MEDS ORDERED: HYDROmorphone 2 MG/ML VIAL IV PRN (14:54)
[2018-11-24] MEDS ORDERED: ACETAMINOPHEN 1,000 MG/100 ML BOTTLE IV PRN (14:54)
[2018-11-24] MEDS ORDERED: hydrALAZINE 20 MG/ML VIAL IV PRN (14:54)
[2018-11-24] MEDS ORDERED: POTASSIUM CHLORIDE 20 MEQ PACKET PO PRN (14:54)
[2018-11-24] MEDS ORDERED: traZODone HCL 50 MG TABLET PO PRN (14:54)
[2018-11-24] MEDS ORDERED: guaiFENesin/CODEINE 10 ML UDC PO PRN (14:54)
[2018-11-24] MEDS ORDERED: DEXTROSE 50% 50 ML VIAL IV PRN (14:54)
[2018-11-24] MEDS: ACETAMINOPHEN 325 MG TABLET PO PRN (20:06)
[2018-11-24] MEDS: SENNOSIDES/DOCUSATE SODIUM 1 TAB TABLET PO SCH (20:41)
[2018-11-25] MEDS: 0.9 % SODIUM CHLORIDE 10 ML SYRINGE IV SCH ×3 (05:03→21:25)
[2018-11-25] MEDS: HYDROCODONE/APAP 7.5/325MG TABLET PO PRN ×3 (05:08→23:17)
[2018-11-25] MEDS: INSULIN LISPRO 1 UNIT/0.01 ML UNIT SQ SCH ×4 (07:41→21:22)
[2018-11-25] MEDS: DOCUSATE SODIUM 100 MG CAPSULE PO SCH ×2 (07:42→21:24)
[2018-11-25] MEDS: DULoxetine 30 MG CAPSULE PO SCH (07:42)
[2018-11-25] MEDS: BACITRACIN TOPICAL OINT 15 GM TUBE TOPICAL SCH (09:53)
[2018-11-25] MEDS: SULFAMETHOXAZOLE/TRIMETHOPRIM 1 TABLET PO SCH ×2 (09:54→21:25)
[2018-11-25] MEDS: APIXABAN 5 MG TABLET PO SCH ×2 (09:54→21:24)
[2018-11-25] MEDS: INSULIN GLARGINE, HUMAN 1 UNIT/0.01 ML SQ SCH (09:54)
[2018-11-25] MEDS: MULTIVIT,THER IRON,CA,FA & MIN 1 TABLET PO SCH (09:54)
[2018-11-25] MEDS: amLODIPine 5 MG TABLET PO SCH (09:54)
[2018-11-25] MEDS: traMADol 50 MG TABLET PO SCH ×3 (09:55→21:24)
[2018-11-25] MEDS: sitaGLIPtin 100 MG TABLET PO SCH (09:55)
[2018-11-25] MEDS: ACETAMINOPHEN 325 MG TABLET PO PRN ×2 (09:55→14:27)
--- NOTE | 2018-11-25 19:56 | Internal Med Progress Note ---
Medical - PN: Subj Patient information: Note initiated : 11/25/18 at 7:54 pm Service Date, if different from initiated Date: [] Patient: Wolf Miles 83 y/o M admitted on 11/19/18 for Nausea, Vomiting x4- 5 hours. Chief Complaint: Follow-up urinary obstruction, delirium Interval history: Mr. Miles is a 83 year old M who presents to the ER with progressive abdominal pain and nausea vomiting that started abruptly this evening. Pain is described as 8 out of 10 waxing and waning in nature mostly on the right side from groin to groin. Patient has been intermittently confused and when asked details he said the symptoms has been ongoing for the last 6 weeks including abdominal discomfort. Initial work-up in the ER was consistent with nephrolithiasis with obstructive uropathy/hydronephrosis. Patient was also found to be hypertensive over 200. Dr. Vaughn urology was consulted and requested hospitalist service to admit the patient while patient will undergo cystoscopy/stenting in a.m. The time of evaluation no family members are present. Patient is hard of hearing and visually challenged. He Is a poor historian but was able to endorse history as above 11/20-patient doing well. Weaning nicardipine drip with systolics around 160s. Due for cystoscopy 3 PM. Overnight fever chills. Pain in good control. Remains afebrile. White count up trending at 10.8. Creatinine down to 1.2. N.p.o. patient was unable to void overnight and Krause's was placed after bladder scan revealed 900 cc. Remains in A. fib 11/21-patient doing well. Intermittent confused. Patient concerned about possible gabapentin reaction. Complains of pain around the great toenail infection. Continue antibiotic coverage. Status post ureteric stent placement. No family members at bedside. Ongoing PT OT/nutrition support. Anticipate discharge in 24 to 48 hours with clinical improvement. Creatinine 1.6. Systolics around 120. Improved on Norvasc. Blood sugars around 250. Increase basal insulin. Continue CC diet. Start Cymbalta for neuropathic pain 11/22-patient remains confused. at bedside. Discussed option for transfer to [facility] once clinically improved. in agreement. Case discussed with case management. No overnight fever chills. Intermittent episodes of anxiety agitation and aggressive behavior. Remains disoriented 11/23 -patient clinically improving. Able to ambulate with physical therapy. Pain much improved. Ongoing wound care for toe cellulitis. Continue antibiotic coverage. Much more lucid and alert. 11/24-patient ambulating with therapy. Tolerating diet. Much lucid alert. No overnight fever chills or concerns per nursing staff. Patient however had a rough night secondary to generalized pain. Tolerating diet. Intermittent episodes of confusion. Off Cymbalta. Anticipate discharge in 48 hours to SNF. Continuing wound care/oral antibiotic. Creatinine 1.4 11/25-continues to work with physical therapy. Remains lucid and alert. Seen at bedside with his . Did have some abdominal cramping yesterday, worried that he may have had recurrent renal stone, however does have ureteral stent in place. Remains off Cymbalta. Continues with dressing change for toe cellulitis. Arrangements for skilled facility made for the morning. - Constitutional Vitals: Vital Signs Temp Pulse Resp BP Pulse Ox 98.7 F 82 19 155/75 96 11/25/18 15:49 11/25/18 15:49 11/25/18 15:49 11/25/18 15:49 11/25/18 15:49 Period Temp Pulse Resp BP Sys/Porter Pulse Ox Last 24 Hr 96.8 F-98.7 F 68-85 14-20 140-174/75-84 95-98 Intake and Output 11/25/18 11/25/18 11/25/18 05:59 13:59 21:59 Intake Total 3220 960 1280 Output Total 3275 1001 Balance -55 -41 1280 Intake & Output: Intake & Output 11/25/18 11/25/18 11/25/18 05:59 13:59 21:59 Intake Total 3220 960 1280 Output Total 3275 1001 Balance -55 -41 1280 Intake: Oral 3220 960 1280 Output: Void Amount 3275 1000 # of times incontinent of urine 1 Other: Meal Lunch Dinner Percent of Meal Consumed 100% 100% Feeding Ability Assist with Tray Set Up Assist with Tray Set Up Urine Appearance Clear Urine Color Straw Bright Yellow Urine Odor Normal # Voids 1 1 # Bowel Movements 1 Exam: General: Sitting in bed no acute distress, chatting with his Chest: Clear, unlabored Cardiovascular: Regular Abdomen: Soft, no tenderness, active bowel sounds Extremities: Left great toe with dressing in place. Neuro: Alert, oriented to person, place and situation. Ambulating with physical therapy. Medical - PN: Obj Da - Labs CBC & Chem 7: 11/24/18 04:23 11/24/18 04:23 Labs: Abnormal Lab Results 11/24/18 11/24/18 11/23/18 04:23 04:23 08:42 RBC 3.51 L Hgb 10.7 L Hct 32.7 L RDW 15.4 H Seg Neutrophils % Lymphocytes % Monocytes % (Manual) 16 H RBC Morphology Abnorm A Hypochromasia 1+ A Carbon Dioxide 19 L BUN 25 H Creatinine 1.4 H 1.3 H Glucose 122 H Calcium 8.3 L 8.5 L Lactate Dehydrogenase 269 H 252 H 11/23/18 08:42 RBC 3.51 L Hgb 11.0 L Hct 33.0 L RDW 15.6 H Seg Neutrophils % 86 H Lymphocytes % 3 L Monocytes % (Manual) RBC Morphology Hypochromasia Carbon Dioxide BUN Creatinine Glucose Calcium Lactate Dehydrogenase Meds: Medications Acetaminophen (Tylenol) 650 mg PO Q4-6HP PRN PRN Reason: PAIN/FEVER > 101 Last Admin: 11/25/18 14:27 Dose: 650 mg Documented by: Hydrocodone Bitart/Acetaminophen ([place] 7.5/325mg) 1 - 2 tab PO Q4HP PRN PRN Reason: PAIN LEVEL 3-6 Last Admin: 11/25/18 19:12 Dose: 1 tab Documented by: Amlodipine Besylate (Norvasc) 5 mg PO DAILY [facility] Last Admin: 11/25/18 09:54 Dose: 5 mg Documented by: Apixaban (Eliquis) 5 mg PO BID [facility] Last Admin: 11/25/18 09:54 Dose: 5 mg Documented by: Bacitracin (Bacitracin Topical Oint) 1 dose TOPICAL DAILY [facility] Last Admin: 11/25/18 09:53 Dose: 1 dose Documented by: Dextrose (Dextrose 50%) 0 ml IV UD PRN PRN Reason: Hypoglycemia Diagnostic Test (Pha) (Accu-Chek) 1 each FS ACHS [facility] Last Admin: 11/25/18 16:33 Dose: 1 each Documented by: Docusate Sodium (Colace) 100 mg PO BID [facility] Last Admin: 11/25/18 07:42 Dose: Not Given Documented by: Duloxetine HCl (Cymbalta) 30 mg PO DAILY [facility] Last Admin: 11/25/18 07:42 Dose: Not Given Documented by: Glucose (Insta-Glucose) 15 gm PO PRN PRN PRN Reason: Hypoglycemia Guaifenesin/Codeine Phosphate (Robitussin Ac) 10 ml PO Q4HP PRN PRN Reason: Cough Hydralazine HCl (Apresoline) 10 mg IV Q4-6HP PRN PRN Reason: Hypertension Hydromorphone HCl (Dilaudid) 0 mg IV Q4HP PRN PRN Reason: PAIN LEVEL > 6 Magnesium Sulfate (Magnesium Sulfate) 2 gm in 50 mls @ 50 mls/hr IV UD PRN PRN Reason: MG = or < 1.7 Acetaminophen (Ofirmev) 1,000 mg in 100 mls @ 200 mls/hr IV Q6HP PRN PRN Reason: PAIN/FEVER > 101 Last Admin: 11/25/18 19:21 Dose: 200 mls/hr Documented by: Insulin Glargine (Lantus) 20 unit SQ DAILY [facility] Last Admin: 11/25/18 09:54 Dose: 20 units Documented by: Insulin Human Lispro (Humalog) [address] [facility]; Protocol Last Admin: 11/25/18 16:52 Dose: 3 unit Documented by: Iron Carb/Multivit/[place]/Folic Acid (Multivitamin W/Minerals) 1 tab PO DAILY [facility] Last Admin: 11/25/18 09:54 Dose: 1 tab Documented by: Loperamide HCl (Imodium) 2 mg PO UD PRN PRN Reason: Diarrhea Ondansetron HCl (Zofran) 4 mg IV Q4-6HP PRN PRN Reason: Nausea And Vomiting Potassium Chloride (Klor-Con) 40 meq PO DAILYP PRN PRN Reason: K+ < 3.5 Senna/Docusate Sodium (Senna Plus Tablet) 1 tab PO HS [facility] Last Admin: 11/24/18 20:41 Dose: Not Given Documented by: Sitagliptin Phosphate (Januvia) 100 mg PO DAILY [facility] Last Admin: 11/25/18 09:55 Dose: 100 mg Documented by: Sodium Chloride (Saline Flush) 10 ml IV Q8 [facility] Last Admin: 11/25/18 14:26 Dose: Not Given Documented by: Tramadol HCl (Ultram) 50 mg PO TID [facility] Last Admin: 11/25/18 14:27 Dose: 50 mg Documented by: Trazodone HCl (Desyrel) 50 mg PO HSP PRN PRN Reason: Insomnia Trimethoprim/Sulfamethoxazole (Bactrim Ds) 1 tab PO BID [facility]; Protocol Last Admin: 11/25/18 09:54 Dose: 1 tab Documented by: Medical - PN: A/P - Time Spent With Patient Total time spent is greater than 50% in coordination of care (as documented) at patient's floor/unit and/or counseling patient: 25 - 35 minutes - Narrative A/P Narrative: Nephrolithiasis with obstructive uropathy and renal colic. Now status post stenting. Plan: Follow-up per urology. Acute kidney injury. Secondary to obstructive uropathy, resolved. Delirium. Resolved. Plan: Avoid sedative hypnotics, behavioral interventions with reorientation, bright lights during the day. Left great toenail bed cellulitis. MRSA on wound cultures. Plan: Continue Bactrim for further 4 days. Wound care per wound care team. Type 2 diabetes. Basal insulin has been increased with better control. Plan: Continue current management. Hypertensive urgency. Resolved. Plan: Continue amlodipine. Atrial fibrillation. Rate controlled. Plan: Continue rate control, apixaban for stroke prophylaxis Lower extremity neuropathy. Stable. Deconditioning secondary to hospitalization and acute kidney injury. Continues to work with PT and OT. Plan: [facility] facility in the morning. CODE STATUS: Full code Prophylaxis: Chronic anticoagulation with apixaban Medical - PN: Qual - Stroke Symptom Onset Unknown: No - VTE Deep Vein Thrombosis/Pulmonary Embolism Present on Admission: No
[2018-11-25] MEDS: SENNOSIDES/DOCUSATE SODIUM 1 TAB TABLET PO SCH (21:25)
[2018-11-26] MEDS: HYDROCODONE/APAP 7.5/325MG TABLET PO PRN ×3 (01:54→11:33)
[2018-11-26] MEDS: 0.9 % SODIUM CHLORIDE 10 ML SYRINGE IV SCH (06:06)
[2018-11-26] MEDS: INSULIN LISPRO 1 UNIT/0.01 ML UNIT SQ SCH ×2 (06:31→11:41)
[2018-11-26] MEDS: amLODIPine 5 MG TABLET PO SCH (08:15)
[2018-11-26] MEDS: sitaGLIPtin 100 MG TABLET PO SCH (08:15)
[2018-11-26] MEDS: MULTIVIT,THER IRON,CA,FA & MIN 1 TABLET PO SCH (08:15)
[2018-11-26] MEDS: BACITRACIN TOPICAL OINT 15 GM TUBE TOPICAL SCH (08:15)
[2018-11-26] MEDS: APIXABAN 5 MG TABLET PO SCH (08:15)
[2018-11-26] MEDS: INSULIN GLARGINE, HUMAN 1 UNIT/0.01 ML SQ SCH (08:15)
[2018-11-26] MEDS: SULFAMETHOXAZOLE/TRIMETHOPRIM 1 TABLET PO SCH (08:15)
[2018-11-26] MEDS: traMADol 50 MG TABLET PO SCH (08:16)
[2018-11-26] MEDS: DOCUSATE SODIUM 100 MG CAPSULE PO SCH (08:16)
[2018-11-26] MEDS: DULoxetine 30 MG CAPSULE PO SCH (08:16)
--- NOTE | 2018-11-26 12:20 | Discharge Summary ---
Medical - DS: Prov Patient information: Note initiated : 11/26/18 at 12:09 pm Service Date, if different from initiated Date: [] Patient: Wolf Miles 83 y/o M admitted on 11/19/18 for Nausea, Vomiting x4- 5 hours. Chief Complaint: [] Date of admission: 11/19/18 20:28 Discharge date: 11/26/18 Primary care physician: Joey Brooks Admitting clinician: Farshad Gee Consults: 11/19/18 19:30 Consult to Physician [CONS] Routine Comment: Consulting Provider: Farshad Gee Reason For Exam: Physician to Consult 11/19/18 20:36 Consult to Physician [CONS] Routine Comment: Consulting Provider: Alec Vaughn Reason For Exam: Physician to Consult 11/20/18 13:02 Consult to Physician [CONS] Routine Comment: left great toe Consulting Provider: Braden Holley Reason For Exam: Physician to Consult Discharging clinician: [facility] - DS: Meds - Discharge Medications Prescriptions: Hydrocodone/APAP 7.5/325Mg [[place] 7.5-325Mg] 1 - 2 tab PO Q4HP PRN #20 tab PRN Reason: Pain Level 3-6 traMADol [Ultram] 50 mg PO TID #90 tab Active and Home Medications: Home Medications tramadol 50 mg tablet 50 mg PO TID #90 tab 08/31/18 [Rx Confirmed 11/20/18 Last Taken Unknown] apixaban 5 mg tablet 5 mg PO BID #180 tab 09/03/18 [Rx Confirmed 11/20/18 Last Taken Unknown] Cephalexin [Keflex] 500 mg PO TID 11/20/18 [History Confirmed 11/20/18 Last Taken Unknown] Ibuprofen [Motrin] 400 mg PO Q6H PRN 11/20/18 [History Confirmed 11/20/18 Last Taken Unknown] Loperamide HCl [Anti-Diarrheal] 2 mg PO PRN PRN MDD 8 11/20/18 [History Confirmed 11/20/18 Last Taken Unknown] Medical - DS: Hosp Hospital Course: Mr. Miles is a 83 year old M who presents to the ER with progressive abdominal pain and nausea vomiting that started abruptly this evening. Pain is described as 8 out of 10 waxing and waning in nature mostly on the right side from groin to groin. Patient has been intermittently confused and when asked details he said the symptoms has been ongoing for the last 6 weeks including abdominal discomfort. Initial work-up in the ER was consistent with nephrolithiasis with obstructive uropathy/hydronephrosis. Patient was also found to be hypertensive over 200. Dr. Vaughn urology was consulted and requested hospitalist service to admit the patient while patient will undergo cystoscopy/stenting in a.m. The time of evaluation no family members are present. Patient is hard of hearing and visually challenged. He Is a poor historian but was able to endorse history as above 11/20-patient doing well. Weaning nicardipine drip with systolics around 160s. Due for cystoscopy 3 PM. Overnight fever chills. Pain in good control. Remains afebrile. White count up trending at 10.8. Creatinine down to 1.2. N.p.o. patient was unable to void overnight and Krause's was placed after bladder scan revealed 900 cc. Remains in A. fib 11/21-patient doing well. Intermittent confused. Patient concerned about possible gabapentin reaction. Complains of pain around the great toenail infection. Continue antibiotic coverage. Status post ureteric stent placement. No family members at bedside. Ongoing PT OT/nutrition support. Anticipate discharge in 24 to 48 hours with clinical improvement. Creatinine 1.6. Systolics around 120. Improved on Norvasc. Blood sugars around 250. Increase basal insulin. Continue CC diet. Start Cymbalta for neuropathic pain 11/22-patient remains confused. at bedside. Discussed option for transfer to shelter home once clinically improved. in agreement. Case discussed with case management. No overnight fever chills. Intermittent episodes of anxiety agitation and aggressive behavior. Remains disoriented. Ureteral stent was removed on 11/21 as the patient had pulled on the string exiting the urethra that was still attached to the stent. 11/23 -patient clinically improving. Able to ambulate with physical therapy. Pain much improved. Ongoing wound care for toe cellulitis. Continue antibiotic coverage. Much more lucid and alert. 11/24-patient ambulating with therapy. Tolerating diet. Much lucid alert. No overnight fever chills or concerns per nursing staff. Patient however had a rough night secondary to generalized pain. Tolerating diet. Intermittent episodes of confusion. Off Cymbalta. Anticipate discharge in 48 hours to SNF. Continuing wound care/oral antibiotic. Creatinine 1.4 11/25-continues to work with physical therapy. Remains lucid and alert. Seen at bedside with his . Did have some abdominal cramping yesterday, worried that he may have had recurrent renal stone, however does have ureteral stent in place. Remains off Cymbalta. Continues with dressing change for toe cellulitis. Arrangements for skilled facility made for the morning. 11/26-continues to do well, lucid, alert, appears to be at baseline. Appetite okay. No abdominal symptoms. No flank pain. Stable for discharge to skilled facility. Continue Bactrim through . Discharge diagnosis: Nephrolithiasis with obstructive uropathy, status post ureteral stent Secondary discharge diagnosis: Ureteral stent removed 11/21 after patient pulled on string attached to stent during delirium Acute kidney injury. Secondary to obstructive uropathy, resolved. Delirium. Resolved. Avoid gabapentin and Cymbalta Left great toenail bed cellulitis. MRSA on wound cultures. Continue Bactrim through Type 2 diabetes. Have been diet controlled at home, now on insulin and Januvia Hypertensive urgency. Resolved. Amlodipine started for blood pressure control Atrial fibrillation. Rate controlled. On apixaban for stroke prophylaxis Lower extremity neuropathy. Stable. Avoid gabapentin and Cymbalta, as can contribute to delirium Deconditioning secondary to hospitalization and acute kidney injury. Continues to work with PT and OT. - Time Spent with Patient Total time spent providing and/or coordinating discharge services: Greater than 30 minutes Medical - DS: Exam - Constitutional Vitals: Vital Signs Temp Pulse Resp BP BP Pulse Ox 11/26/18 11:43 97.7 F 82 19 146/82 98 11/26/18 06:33 97.3 F 79 20 168/86 97 11/26/18 05:42 98.3 F 83 18 143/77 94 11/25/18 23:24 97.5 F 84 14 160/80 97 11/25/18 19:47 98.3 F 86 14 168/77 97 11/25/18 15:49 98.7 F 82 19 155/75 96 Intake and Output 11/25/18 11/26/18 11/26/18 21:59 05:59 13:59 Intake Total 1380 480 440 Output Total 820 Balance 1380 -340 440 Intake: IV 100 Oral 1280 480 440 Output: Void Amount 820 Other: Meal Dinner Breakfast Percent of Meal Consumed 100% 100% Feeding Ability Assist with Tray Set Up Assist with Tray Set Up Urine Appearance Clear Clear Urine Color Bright Yellow Dark Yellow Stool Size Moderate Stool Color Brown # Voids 1 1 # of times incontinent of 1 Bowels Weight 207 lb 4.8 oz General appearance: cooperative, no acute distress - Respiratory Respiratory exam: Present: normal respiratory exam - Cardiovascular Cardiovascular exam: Present: irregular rhythm - GI/Abdominal GI/Abdominal exam: Present: normal bowel sounds, soft. Absent: distended, tenderness - Neurological Exam Neurological exam: Present: alert, oriented X3. Absent: motor sensory deficit Medical - DS: Data Procedures and tests throughout hospitalization: DATE OF OPERATION: 11/20/2018 PREOPERATIVE DIAGNOSIS: Left renal stone. POSTOPERATIVE DIAGNOSIS: Left renal stone. PROCEDURE: Cystoscopy, retrograde pyelogram, ureteroscopy, laser lithotripsy and stent placement. SURGEON: Alec Vaughn MD Labs on day of discharge: Laboratory Results - last 72 hr 11/24/18 11/24/18 04:23 04:23 WBC 5.8 RBC 3.51 L Hgb 10.7 L Hct 32.7 L MCV 93.2 MCH 30.4 MCHC 32.7 RDW 15.4 H Plt Count 189 MPV 7.6 Total Counted 100 Seg Neutrophils % 59 Band Neutrophils % Not Reportable Lymphocytes % 19 Monocytes % (Manual) 16 H Eosinophils % (Manual) 6 Platelet Estimate Normal RBC Morphology Abnorm A Hypochromasia 1+ A Sodium 141 Potassium 4.0 Chloride 107 Carbon Dioxide 19 L Anion Gap 15.0 BUN 23 Creatinine 1.4 H GFR Calculation 46 Glucose 122 H Uric Acid 4.3 Calcium 8.3 L Phosphorus 4.1 Magnesium 1.9 Total Bilirubin 0.5 Direct Bilirubin < 0.2 GGT 24 AST 25 ALT 21 Alkaline Phosphatase 51 Lactate Dehydrogenase 269 H Total Protein 6.2 Albumin 3.2 Globulin 3.0 Albumin/Globulin Ratio 1.1 Triglycerides 82 - Imaging and Cardiology CT scan - abdomen Additional comments: IMPRESSION: 8 x 10 mm calculus at the left ureteropelvic junction causing hydronephrosis. Medical - DS: A/P - Patient/Caregiver Discharge Instructions Activity: as per physical therapy, increase activity as tolerated Diet: Consistent Carbohydrate Other Amb Orders: OT Discharge Order Location: None Selected Physical Therapy at Discharge - General Location: None Selected - Follow up Plan Follow up with: Alec Vaughn MD [Physician] - (Follow up in office in 2 weeks) Braden Holley MD [Physician] - (follow up at wound clinic as new patient for left great toe) Joey Brooks PA-C [Primary Care Provider] - (in 7-10 days) Disposition: Xfer SNF Prognosis: Good Rehab Potential: Good I certify that the patient requires SNF services: Yes Overall status at discharge: patient is progressing back to baseline Medical - DS: Qual - VTE Deep Vein Thrombosis/Pulmonary Embolism Present on Admission: No
== END 2018-11-26 12:57 | DRG 660 ==
LOC: ED 15:17 → ICU 20:28 → MEDSUR 11-21 18:48
PROVIDERS: ADMIT Internal Medicine; ATTEND Internal Medicine

== ENCOUNTER 2020-12-22 01:08 | Inpatient (IN) ==
--- NOTE | 2020-12-22 01:12 | Emergency Department Note ---
HPI General Chief complaint: Altered Mental Status Stated complaint: dementia Time Seen by Provider: 12/22/20 01:11 Mode of arrival: ambulatory Limitations: altered mental status History of Present Illness HPI Narrative: Narrative: The patient is an 85-year-old male brought in by ambulance for fever and altered mental status their history is unknown. There is no family here, the patient has dementia and ams. Related Data Home Medications Medication Instructions Recorded Confirmed acetaminophen 1,000 mg PO Q6H PRN 12/12/19 12/09/20 Previous Rx's Medication Instructions Recorded Accu-Chek 1 each FS ACHS strip 11/26/18 insulin syringe-needle U-100 1 mL #200 each 04/23/20 25 x 1" losartan 25 mg tablet 25 mg PO QDAY #60 tab 04/23/20 hyoscyamine sulfate [Levsin/SL] 0.125 mg SUBLINGUAL QID PRN #20 tab 08/19/20 ondansetron 4 mg PO Q6H PRN #30 tab 08/19/20 insulin aspart U-100 100 unit/mL 15 unit SUBCUT TID #15 ml 10/19/20 (3 mL) subcutaneous pen insulin glargine 100 unit/mL (3 25 unit SUBCUT QDAY #15 ml 10/19/20 mL) subcutaneous pen Allergies Allergy/AdvReac Type Severity Reaction Status Date / Time No Known Drug Allergies Allergy Verified 12/22/20 01:09 Review of Systems ROS ROS Narrative: Narrative: Limitations: ROS unobtainable due to patients medical condition PFSH Narrative Patient History Narrative: Narrative: Medical/Surgical/Family History All Active Problems (Updated 12/22/20 @ 04:56 by Samuel Gaming DO) Pneumonia (Acute) Hyperglycemia (Acute) Leukocytosis (Acute) CHF (congestive heart failure) (Acute) Left elbow pain (Acute) Medicare annual wellness visit, initial (Acute) Cellulitis of toe of left foot (Acute) Abdominal pain (Acute) Pyelonephritis of left kidney (Acute) Diverticulosis (Acute) BPH w urinary obs/LUTS (Chronic) Proteinuria due to type 2 diabetes mellitus (Acute) Depression (Acute) Dementia with behavioral disturbance (Acute) Abdominal pain (Acute) Hydronephrosis (Acute) Asymptomatic hypertensive urgency (Acute) MRSA exposure (Chronic) Skin ulcer of left great toe (Chronic) Open wound of left great toe (Acute) H/O skin graft (Acute) Postoperative ecchymosis (Acute) CKD (chronic kidney disease), stage III (Chronic) Macular degeneration (Chronic) 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) CAD (coronary artery disease) (Chronic) PVD (peripheral vascular disease) (Chronic) Diabetes mellitus type 2 in obese (Chronic) Essential hypertension (Chronic) Metabolic syndrome (Chronic) Status post insertion of spinal cord stimulator (Chronic) NAYANA (obstructive sleep apnea) (Chronic) Hx of CABG (Chronic) History of heart valve replacement (Chronic) History of kidney stones (Chronic) History of foot surgery (Chronic) Dementia (Chronic) Afib (Chronic) Neuropathy (Chronic) Diarrhea (Chronic) Substance abuse (Chronic) Kidney stones (Chronic) Joint pain (Chronic) Insomnia (Chronic) High blood pressure (Chronic) Heart trouble (Chronic) Diabetes (Chronic) Daytime sleepiness (Chronic) Bleeding tendency (Chronic) Laceration of head (Chronic) Encounter for removal of sutures (Chronic) Ribs, multiple fractures (Chronic) Rib fractures (Chronic) Inadequate pain control (Chronic) Diabetes (Chronic) Hypertension (Chronic) Diabetic foot ulcer (Chronic) Laceration (Chronic) Avulsion of skin (Chronic) SCC (squamous cell carcinoma), 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 On metformin. Heart trouble High blood pressure Insomnia Joint pain Kidney stones Left elbow pain Medicare annual wellness visit, initial Neuropathy Bilateral lower extremities to approximately knee level NAYANA (obstructive sleep apnea) Had sleep study in the past. Mask not tolerated. Substance abuse Surgical History History of foot surgery Right transmetatarsal amputation~18 months ago History of heart valve replacement ~2006 History of kidney stones Hx of CABG ~2006 Status post insertion of spinal cord stimulator 03/04/16 Dr Patrick Family History Other No pertinent family history Social History Smoking Status: Never smoker Alcohol Intake Frequency: 2+ drinks per day Substance Use: does not use Exam Narrative Narrative: Narrative: General Limitations: altered mental status General appearance: Present lethargic Head Head: Present atraumatic and normocephalic Eye Eye: Present normal appearance, PERRL and EOMI ENT ENT: Present normal exam, normal oropharynx and mucous membranes moist Neck Neck: Present normal inspection, full ROM and trachea midline Chest Chest: Present normal inspection and symmetric chest wall rise Respiratory Respiratory: Present other (Mild tachypnea, no use of accessory muscles, diffuse adventitious lung sounds in bilateral lung valadez at the bases.) Cardiovascular Cardiovascular: Present tachycardia and irregular rhythm Adbominal Abdominal: Present soft and normal bowel sounds; Absent tenderness, guarding, rebound and organomegaly Extremities Extremities: Present normal inspection and full ROM; Absent tenderness Back Back: Present normal inspection and full ROM; Absent tenderness Neurological Neurological: Present other (No facial droop, patient is lethargic but arousable he moves all extremities equally patient is confused.) Psychiatric Psychiatric: Present agitated Skin Skin: Present warm (WNL); Absent rash Course Course Course Narrative: EKG shows a rate of 124. Atrial fibrillation, no STEMI, nonspecific and abnormal EKG. Rapid Covid is negative. Preliminary interpretation of chest x-ray is concerning for pulmonary edema congestive heart failure and left lower lobe infiltrate. Final interpretation is per the radiologist. Patient was noted to be hyperglycemic but not acidotic. Is noted to have leukocytosis as well patient does meet SIRS criteria for sepsis. He was received IV Rocephin and IV azithromycin. Preliminary interpretation of CT scan the head shows no acute process. Final interpretation is per the radiologist. 06:45 Unable to find placement for this patient at this point as there are no beds for admission available. The care of this patient will be transitioned over to Dr. Haines at shift change. Vital Signs Vital signs: Vital Signs Temperature 100.6 F H 12/22/20 01:09 Pulse Rate 147 H 12/22/20 01:09 Respiratory Rate 20 12/22/20 01:09 Blood Pressure 128/81 12/22/20 01:09 Pulse Oximetry (%) 85 L 12/22/20 01:09 Temperature 98.0 F 12/22/20 05:22 Pulse Rate 85 12/22/20 06:15 Respiratory Rate 15 12/22/20 06:31 Blood Pressure 123/54 12/22/20 06:31 Pulse Oximetry (%) 96 12/22/20 06:15 MDM MDM Narrative Medical decision making narrative: Narrative: Lab Data Result diagrams: 12/22/20 01:51 12/22/20 01:50 Labs: Lab Results 12/22/20 12/22/20 12/22/20 Range/Units 01:46 01:49 01:49 WBC (4.5-11.0) K/mcL RBC (4.63-6.08) M/mcL Hgb (13.7-17.5) g/dL Hct (40.1-51.0) % MCV (80.0-100.0) fL MCH (26.0-34.0) pg MCHC (31.0-36.0) g/dL RDW (11.5-14.5) % Plt Count (140-440) K/mcL MPV (7.4-10.4) fL Neut % (Auto) (38.0-78.0) % Lymph % (Auto) (15.5-49.0) % [place] % (Auto) (1.0-12.0) % Eos % (Auto) (0.0-7.0) % Baso % (Auto) (0.0-2.0) % Lymph # (Auto) (1.50-4.80) K/mcL [place] # (Auto) (0.10-0.90) K/mcL Eos # (Auto) (0.00-0.70) K/mcL Baso # (Auto) (0.00-0.30) K/mcL Absolute Neutrophils (1.80-8.00) K/mcL PT (11.9-14.5) sec INR (0.9-1.1) ABG Methemoglobin 0.3 L (0.4-1.5) % VBG pH 7.39 (7.32-7.42) U VBG pCO2 35.1 L (41.0-51.0) mmHg VBG pO2 77.2 H (25.0-40.0) mmHg VBG HCO3 20.7 L (24.0-28.0) mmol/L VBG Total CO2 21.8 L (25.0-29.0) mmol/L VBG O2 Saturation 91.7 H (40.0-70.0) % VBG Base Excess -4 L (-2-2) VBG Lactic Acid (0.5-2.0) mmol/L Carboxyhemoglobin 3.6 H (0.0-1.5) % THgb Total Hemoglobin 13.8 (13.5-16.5) gm/Dl Sodium (133-145) mmol/L Potassium (3.3-5.1) mmol/L Chloride (96-108) mmol/L Carbon Dioxide (22-30) mmol/L Anion Gap (8.0-16.0) BUN (8-23) mg/dL Creatinine (0.7-1.2) mg/dL GFR Calculation Glucose (70-105) mg/dL Calcium (8.6-10.4) mg/dL Magnesium (1.6-2.5) mg/dL Total Bilirubin (0.1-1.0) mg/dL AST (<40) U/L ALT (<40) U/L Alkaline Phosphatase (39-117) U/L Troponin T (<0.03) ng/mL C-Reactive Protein 6.90 H (0.03-0.80) mg/dL NT-Pro-B Natriuret Pep 3723.0 H (<450.0) pg/mL Total Protein (5.9-8.4) gm/dL Albumin (3.2-5.2) gm/dL Globulin (2.2-3.7) gm/dL Albumin/Globulin Ratio (1.0-2.3) Lipase (7-60) U/L Beta-Hydroxybutyrate 0.72 H (<0.27) mmol/L Procalcitonin 0.16 H (<0.10) ng/mL 12/22/20 12/22/20 12/22/20 Range/Units 01:50 01:51 01:51 WBC 14.4 H (4.5-11.0) K/mcL RBC 4.50 L (4.63-6.08) M/mcL Hgb 14.3 (13.7-17.5) g/dL Hct 40.5 (40.1-51.0) % MCV 90.0 (80.0-100.0) fL MCH 31.8 (26.0-34.0) pg MCHC 35.3 (31.0-36.0) g/dL RDW 12.0 (11.5-14.5) % Plt Count 290 (140-440) K/mcL MPV 9.7 (7.4-10.4) fL Neut % (Auto) 90.7 H (38.0-78.0) % Lymph % (Auto) 2.4 L (15.5-49.0) % [place] % (Auto) 6.5 (1.0-12.0) % Eos % (Auto) 0.1 (0.0-7.0) % Baso % (Auto) 0.3 (0.0-2.0) % Lymph # (Auto) 0.35 L (1.50-4.80) K/mcL [place] # (Auto) 0.94 H (0.10-0.90) K/mcL Eos # (Auto) 0.01 (0.00-0.70) K/mcL Baso # (Auto) 0.04 (0.00-0.30) K/mcL Absolute Neutrophils 13.04 H (1.80-8.00) K/mcL PT 16.7 H (11.9-14.5) sec INR 1.3 H (0.9-1.1) ABG Methemoglobin (0.4-1.5) % VBG pH (7.32-7.42) U VBG pCO2 (41.0-51.0) mmHg VBG pO2 (25.0-40.0) mmHg VBG HCO3 (24.0-28.0) mmol/L VBG Total CO2 (25.0-29.0) mmol/L VBG O2 Saturation (40.0-70.0) % VBG Base Excess (-2-2) VBG Lactic Acid (0.5-2.0) mmol/L Carboxyhemoglobin (0.0-1.5) % THgb Total Hemoglobin (13.5-16.5) gm/Dl Sodium 136 (133-145) mmol/L Potassium 3.7 (3.3-5.1) mmol/L Chloride 101 (96-108) mmol/L Carbon Dioxide 18 L (22-30) mmol/L Anion Gap 17.0 H (8.0-16.0) BUN 29 H (8-23) mg/dL Creatinine 1.7 H (0.7-1.2) mg/dL GFR Calculation 36 Glucose 419 H (70-105) mg/dL Calcium 9.0 (8.6-10.4) mg/dL Magnesium 1.6 (1.6-2.5) mg/dL Total Bilirubin 0.5 (0.1-1.0) mg/dL AST 17 (<40) U/L ALT 15 (<40) U/L Alkaline Phosphatase 83 (39-117) U/L Troponin T (<0.03) ng/mL C-Reactive Protein (0.03-0.80) mg/dL NT-Pro-B Natriuret Pep (<450.0) pg/mL Total Protein 7.2 (5.9-8.4) gm/dL Albumin 3.5 (3.2-5.2) gm/dL Globulin 3.7 (2.2-3.7) gm/dL Albumin/Globulin Ratio 0.9 L (1.0-2.3) Lipase 26 (7-60) U/L Beta-Hydroxybutyrate (<0.27) mmol/L Procalcitonin (<0.10) ng/mL 12/22/20 12/22/20 Range/Units 01:51 01:51 WBC (4.5-11.0) K/mcL RBC (4.63-6.08) M/mcL Hgb (13.7-17.5) g/dL Hct (40.1-51.0) % MCV (80.0-100.0) fL MCH (26.0-34.0) pg MCHC (31.0-36.0) g/dL RDW (11.5-14.5) % Plt Count (140-440) K/mcL MPV (7.4-10.4) fL Neut % (Auto) (38.0-78.0) % Lymph % (Auto) (15.5-49.0) % [place] % (Auto) (1.0-12.0) % Eos % (Auto) (0.0-7.0) % Baso % (Auto) (0.0-2.0) % Lymph # (Auto) (1.50-4.80) K/mcL [place] # (Auto) (0.10-0.90) K/mcL Eos # (Auto) (0.00-0.70) K/mcL Baso # (Auto) (0.00-0.30) K/mcL Absolute Neutrophils (1.80-8.00) K/mcL PT (11.9-14.5) sec INR (0.9-1.1) ABG Methemoglobin (0.4-1.5) % VBG pH (7.32-7.42) U VBG pCO2 (41.0-51.0) mmHg VBG pO2 (25.0-40.0) mmHg VBG HCO3 (24.0-28.0) mmol/L VBG Total CO2 (25.0-29.0) mmol/L VBG O2 Saturation (40.0-70.0) % VBG Base Excess (-2-2) VBG Lactic Acid 1.9 (0.5-2.0) mmol/L Carboxyhemoglobin (0.0-1.5) % THgb Total Hemoglobin (13.5-16.5) gm/Dl Sodium (133-145) mmol/L Potassium (3.3-5.1) mmol/L Chloride (96-108) mmol/L Carbon Dioxide (22-30) mmol/L Anion Gap (8.0-16.0) BUN (8-23) mg/dL Creatinine (0.7-1.2) mg/dL GFR Calculation Glucose (70-105) mg/dL Calcium (8.6-10.4) mg/dL Magnesium (1.6-2.5) mg/dL Total Bilirubin (0.1-1.0) mg/dL AST (<40) U/L ALT (<40) U/L Alkaline Phosphatase (39-117) U/L Troponin T 0.02 (<0.03) ng/mL C-Reactive Protein (0.03-0.80) mg/dL NT-Pro-B Natriuret Pep (<450.0) pg/mL Total Protein (5.9-8.4) gm/dL Albumin (3.2-5.2) gm/dL Globulin (2.2-3.7) gm/dL Albumin/Globulin Ratio (1.0-2.3) Lipase (7-60) U/L Beta-Hydroxybutyrate (<0.27) mmol/L Procalcitonin (<0.10) ng/mL ED POC Tests ED POC Tests: CANDELARIO - Influenza A Negative CANDELARIO - Influenza B Negative CANDELARIO - SARS Antigen Negative Discharge Plan Patient/Caregiver Discharge Instructions Pt seen by JAVA SYSTEMS ANALYST/PA only: No Clinical Impression: Pneumonia, Hyperglycemia, Leukocytosis, CHF (congestive heart failure) Patient Disposition: Still a Patient Condition: Serious Follow up with: Joey Brooks PA-C [Primary Care Provider] - Prescriptions: No Action insulin glargine 100 unit/mL (3 mL) insulin pen 25 unit subcut QDAY Qty: 15 RF: 0 insulin aspart U-100 100 unit/mL (3 mL) insulin pen 15 unit subcut TID Qty: 15 RF: 0 losartan 25 mg tablet 25 mg PO QDAY Qty: 60 RF: 1 (DME) BD Insulin Syringe 1 mL 25 x 1" syringe See Rx Instructions .ROUTE .MEDSUPPLY Qty: 200 RF: 3 Accu-Chek 1 EACH strip 1 each FS ACHS RF: 0 acetaminophen 500 mg Capsule 1,000 mg PO Q6H PRN (Reason: Pain) RF: 0 hyoscyamine sulfate [Levsin/SL] 0.125 mg tablet, sublingual 0.125 mg sublingual QID PRN (Reason: dyspepsia) Qty: 20 RF: 0 ondansetron 4 mg tablet,disintegrating 4 mg PO Q6H PRN (Reason: nausea and vomiting) Qty: 30 RF: 0
[2020-12-22] MEDS ORDERED: ACETAMINOPHEN 325 MG TABLET PO ONE (01:25)
[2020-12-22] MEDS ORDERED: cefTRIAXone 1 GM in DEXTROSE 5% IN WATER 50 ML IV ONE (01:25)
[2020-12-22] MEDS ORDERED: 0.9 % SODIUM CHLORIDE 1,000 ML IV ONE ×2 (01:25→01:39)
[2020-12-22 02:11] LABS: Basophils # (Auto) 0.04 K/mcL (0.00-0.30); Basophils % (Auto) 0.3 % (0.0-2.0); Eosinophils # (Auto) 0.01 K/mcL (0.00-0.70); Eosinophils % (Auto) 0.1 % (0.0-7.0); Hematocrit 40.5 % (40.1-51.0); Hemoglobin 14.3 g/dL (13.7-17.5); Lymphocytes # (Auto) 0.35 K/mcL (1.50-4.80); Lymphocytes % (Auto) 2.4 % (15.5-49.0); Mean Corpuscular HGB Conc 35.3 g/dL (31.0-36.0); Mean Platelet Volume 9.7 fL (7.4-10.4); Monocytes # (Auto) 0.94 K/mcL (0.10-0.90); Monocytes % (Auto) 6.5 % (1.0-12.0); Neutrophils % (Auto) 90.7 % (38.0-78.0); Platelet Count 290 K/mcL (140-440); WBC 14.4 K/mcL (4.5-11.0)
[2020-12-22 02:12] LABS: ABG Methemoglobin 0.3 % (0.4-1.5); Total Hemoglobin 13.8 gm/Dl (13.5-16.5); VBG Base Excess -4 (-2-2); VBG HCO3 20.7 mmol/L (24.0-28.0); VBG Oxygen Saturation 91.7 % (40.0-70.0); VBG PCO2 35.1 mmHg (41.0-51.0); VBG PH 7.39 U (7.32-7.42); VBG PO2 77.2 mmHg (25.0-40.0); VBG Total CO2 21.8 mmol/L (25.0-29.0)
[2020-12-22 02:28] LABS: INR 1.3 (0.9-1.1); Prothrombin Time 16.7 sec (11.9-14.5)
[2020-12-22 02:38] LABS: ALT/SGPT 15 U/L (<40); AST/SGOT 17 U/L (<40); Albumin 3.5 gm/dL (3.2-5.2); Albumin/Globulin Ratio 0.9 (1.0-2.3); Alkaline Phosphatase 83 U/L (39-117); Bilirubin,Total 0.5 mg/dL (0.1-1.0); Blood Urea Nitrogen 29 mg/dL (8-23); Carbon Dioxide 18 mmol/L (22-30); Chloride 101 mmol/L (96-108); Globulin 3.7 gm/dL (2.2-3.7); Glomerular Filtration Rate 36; Glucose 419 mg/dL (70-105)
[2020-12-22 02:39] LABS: Beta Hydroxybutyrate 0.72 mmol/L (<0.27); C-Reactive Protein 6.9 mg/dL (0.03-0.80)
[2020-12-22] MEDS ORDERED: INSULIN REGULAR, HUMAN 1 UNIT/0.01 ML UNIT IV ONE (03:04)
[2020-12-22] MEDS ORDERED: AZITHROMYCIN 500 MG in DEXTROSE 5% IN WATER 250 ML IV ONE (03:43)
[2020-12-22] MEDS ORDERED: FUROSEMIDE 40 MG/4 ML VIAL IV ONE (04:54)
--- NOTE | 2020-12-22 06:14 | XRay Report ---
INDICATION: FEVER TECHNIQUE: AP portable semiupright chest x-ray COMPARISON: Previous chest x-rays dated 12/12/2019, 02/09/2019, 09/15/2017 FINDINGS:Left-sided pacemaker. Transvenous pacemaker leads are in unchanged positions. Patient has undergone previous median sternotomy and probable coronary artery bypass procedure. There are spinal cord stimulator leads in the lower thoracic spine. These findings are chronic Lungs:Bilateral, predominantly bibasilar pulmonary parenchymal infiltrates. Superior interstitial. Pneumonia, including covid pneumonia suspected. Clinical correlation and follow-up radiograph recommended. Heart, vascular:There is mild cardiomegaly. Vascularity is within normal limits without evidence for pulmonary edema Mediastinum, jj:No mediastinal widening. No hilar mass Pleura:No pleural fluid. No pleural-based mass or calcification Skeletal:Negative. IMPRESSION: 1. Patchy infiltrates with bibasilar predominance. Atypical pneumonia including covid are possible 2. Mild cardiomegaly. No evidence for pulmonary edema Interpreted and Authenticated by: Matt Dawson 12/22/20
--- NOTE | 2020-12-22 06:21 | Cat Scan Report ---
INDICATION: Altered mental status. History of dementia COMPARISON: Previous examinations dated 02/09/2019, 03/12/2018, 08/14/2017 TECHNIQUE: Axial noncontrast-enhanced images through the brain. Sagittally and coronally reformatted images. FINDINGS: Examination was initially interpreted by [facility] Cerebral hemispheres:There is ventriculomegaly and prominence of the superficial subarachnoid spaces. There is mild periventricular white matter abnormality. There is a focal area of low density in the white matter of the right frontal lobe consistent with old infarction. Appearance is consistent with cerebral atrophy and small vessel ischemic change. Findings are stable without evidence for acute hydrocephalus. No intra-axial hemorrhage. No localized mass effect. No focal acute abnormality. Brainstem and cerebellum:No intra-axial abnormality Extra-axial:No acute hemorrhage. No subdural or epidural hematoma. No subarachnoid hemorrhage. Basilar cisterns are normal. There is prominent dural calcification or ossification. No acute abnormality Calvarial:No calvarial fracture. No lytic lesion Temporal bones are negative. No destructive lesions Soft tissue, orbits, sinuses:Orbits and visualized facial soft tissues and paranasal sinuses are negative IMPRESSION: 1. No acute intracranial abnormality. No intracranial hemorrhage 2. Cerebral atrophy and white matter abnormality. 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 No significant interval change since 08/14/2018 The exam was performed using radiation dose optimization techniques including, but not limited to, automated exposure control, adjustment of the mA and/or kV according to patient size and use of iterative reconstruction technique. Interpreted and Authenticated by: Matt Dawson 12/22/20
[2020-12-22 07:58] LABS: Erythrocyte Sedimentation Rate 49 mm/hr (0-15)
--- NOTE | 2020-12-22 12:53 | EKG ---
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
--- NOTE | 2020-12-22 13:35 | Internal Med History&Physical ---
HPI History of Present Illness Patient information: Note initiated : 12/22/20 at 1:30 pm Service Date, if different from initiated Date: [] Patient: Wolf Miles 85 y/o M admitted on for Dementia. Chief Complaint: [altered mental status] History of present illness: Mr. Miles is a 85 year old M history of congestive heart failure, type 2 diabetes mellitus, clinically disease stage III, presenting with altered mental status. History limited by lack of caregiver at the bedside as well as clinical situations. Unknown time of onset or durations of symptoms. Patient denies any confusions. Patient denies any shortness of breath. Patient is complaining of nonproductive cough. Patient denies any wheezing. Patient denies any fever chills or diaphoresis. Vital signs significant for mild tachycardia heart rate in the 90s and tachypnea with a breathing up to mid 20s. Labs significant for leukocytosis with WBC 14.4. Serum lactic acid 1.9. Serum creatinine level 1.7 at baseline. Serum glucose elevated 419. Serum BNP is 3723. Chest x-ray significant for bibasilar infiltrates. Constitutional Constitutional: Absent chills, excessive sweating, fatigue, fever(s) and weakness EENT Eyes: Absent blurry vision, change in vision, loss of vision and other visual disturbances Ears: Absent decreased hearing and tinnitus Nose, mouth and throat: Absent abnormal hearing, dry mouth, headache(s), nasal congestion and sore throat Cardiovascular Cardiovascular: Absent chest pain, chest pain at rest, edema, irregular heart rhythm and palpatations Respiratory Respiratory: Present cough; Absent dyspnea and wheezing Gastrointestinal Gastrointestinal: Absent abdominal pain, constipation, diarrhea, nausea and vomiting Musculoskeletal Musculoskeletal: Absent back pain, deformity, limited range of motion, muscle cramps, muscle weakness and numbness Integumentary Integumentary: Absent lesions, rash and wounds Neurological Neurological: Absent focal weakness, headache(s) and numbness Psychiatric Psychiatric: Absent anxiety, depression and hallucinations PFSH PFSH All Active Problems (Updated 12/22/20 @ 13:42 by Nikko Rivers MD) Delirium (Acute) Clinical sepsis (Acute) Community acquired bilateral lower lobe pneumonia (Acute) Pneumonia (Acute) Hyperglycemia (Acute) Leukocytosis (Acute) CHF (congestive heart failure) (Acute) Left elbow pain (Acute) Medicare annual wellness visit, initial (Acute) Cellulitis of toe of left foot (Acute) Abdominal pain (Acute) Pyelonephritis of left kidney (Acute) Diverticulosis (Acute) BPH w urinary obs/LUTS (Chronic) Proteinuria due to type 2 diabetes mellitus (Acute) Depression (Acute) Dementia with behavioral disturbance (Acute) Abdominal pain (Acute) Hydronephrosis (Acute) Asymptomatic hypertensive urgency (Acute) MRSA exposure (Chronic) Skin ulcer of left great toe (Chronic) Open wound of left great toe (Acute) H/O skin graft (Acute) Postoperative ecchymosis (Acute) CKD (chronic kidney disease), stage III (Chronic) Macular degeneration (Chronic) 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) CAD (coronary artery disease) (Chronic) PVD (peripheral vascular disease) (Chronic) Diabetes mellitus type 2 in obese (Chronic) Essential hypertension (Chronic) Metabolic syndrome (Chronic) Status post insertion of spinal cord stimulator (Chronic) NAYANA (obstructive sleep apnea) (Chronic) Hx of CABG (Chronic) History of heart valve replacement (Chronic) History of kidney stones (Chronic) History of foot surgery (Chronic) Dementia (Chronic) Afib (Chronic) Neuropathy (Chronic) Diarrhea (Chronic) Substance abuse (Chronic) Kidney stones (Chronic) Joint pain (Chronic) Insomnia (Chronic) High blood pressure (Chronic) Heart trouble (Chronic) Diabetes (Chronic) Daytime sleepiness (Chronic) Bleeding tendency (Chronic) Laceration of head (Chronic) Encounter for removal of sutures (Chronic) Ribs, multiple fractures (Chronic) Rib fractures (Chronic) Inadequate pain control (Chronic) Diabetes (Chronic) Hypertension (Chronic) Diabetic foot ulcer (Chronic) Laceration (Chronic) Avulsion of skin (Chronic) SCC (squamous cell carcinoma), 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 On metformin. Heart trouble High blood pressure Insomnia Joint pain Kidney stones Left elbow pain Medicare annual wellness visit, initial Neuropathy Bilateral lower extremities to approximately knee level NAYANA (obstructive sleep apnea) Had sleep study in the past. Mask not tolerated. Substance abuse Surgical History History of foot surgery Right transmetatarsal amputation~18 months ago History of heart valve replacement ~2006 History of kidney stones Hx of CABG ~2006 Status post insertion of spinal cord stimulator 03/04/16 Dr Patrick Family History Other No pertinent family history Social History marital status: occupational status: retired occupation: [employer] occupational exposures/hazards: Yes alcohol intake frequency: 2+ drinks per day substance use type: does not use MEDS/ALLERGIES Home Medications and Allergies Home Medications Medication Instructions Recorded Confirmed Type Accu-Chek 1 each FS ACHS strip 11/26/18 12/09/20 Rx acetaminophen 1,000 mg PO Q6H PRN 12/12/19 12/09/20 History insulin syringe-needle U-100 1 mL #200 each 04/23/20 12/09/20 Rx 25 x 1" losartan 25 mg tablet 25 mg PO QDAY #60 tab 04/23/20 12/09/20 Rx hyoscyamine sulfate [Levsin/SL] 0.125 mg SUBLINGUAL QID PRN #20 tab 08/19/20 12/09/20 Rx ondansetron 4 mg PO Q6H PRN #30 tab 08/19/20 12/09/20 Rx insulin aspart U-100 100 unit/mL 15 unit SUBCUT TID #15 ml 10/19/20 12/09/20 Rx (3 mL) subcutaneous pen insulin glargine 100 unit/mL (3 25 unit SUBCUT QDAY #15 ml 10/19/20 12/09/20 Rx mL) subcutaneous pen Allergies Allergy/AdvReac Type Severity Reaction Status Date / Time No Known Drug Allergies Allergy Verified 12/22/20 01:09 EXAM Constitutional Vitals: Temp Pulse Resp BP Pulse Ox 36.7 C 88 20 137/98 94 12/22/20 12:19 12/22/20 13:23 12/22/20 12:19 12/22/20 12:19 12/22/20 13:23 General appearance: cooperative and no acute distress Head Head exam: Present atraumatic and normocephalic Eye Eye exam: Present EOMI and PERRL ENT ENT exam: Present mucous membranes moist, normal exam and normal external ear exam Neck Neck exam: Present normal inspection; Absent lymphadenopathy, tenderness and thyromegaly Respiratory Respiratory exam: Present rhonchi; Absent accessory muscle use, respiratory distress and wheezes Cardiovascular Cardiovascular exam: Present normal rate and rhythm; Absent JVD GI/Abdominal GI/Abdominal exam: Present normal bowel sounds and soft; Absent organomegaly and tenderness Rectal Rectal exam: Present deferred Extremities Exam Extremities exam: Present full ROM and normal capillary refill; Absent normal inspection and tenderness Additional comments: Right foot transmetatarsal amputation Neurological Exam Neurological exam: Present alert and CN II-XII intact; Absent motor sensory deficit and oriented X3 Additional comments: Alert and oriented x1 to person only Psychiatric Psychiatric exam: Present normal affect and normal mood; Absent anxious and depressed Skin Skin exam: Present dry and intact DATA Data Completed and Pending Labs: Labs from last 24 hours 12/22/20 12/22/20 12/22/20 01:51 01:51 01:51 WBC RBC Hgb Hct MCV MCH MCHC RDW Plt Count MPV Neut % (Auto) Lymph % (Auto) [place] % (Auto) Eos % (Auto) Baso % (Auto) Lymph # (Auto) [place] # (Auto) Eos # (Auto) Baso # (Auto) Absolute Neutrophils ESR PT 16.7 H INR 1.3 H ABG Methemoglobin VBG pH VBG pCO2 VBG pO2 VBG HCO3 VBG Total CO2 VBG O2 Saturation VBG Base Excess VBG Lactic Acid 1.9 Carboxyhemoglobin Total Hemoglobin Sodium Potassium Chloride Carbon Dioxide Anion Gap BUN Creatinine GFR Calculation Glucose Calcium Magnesium Total Bilirubin AST ALT Alkaline Phosphatase Troponin T 0.02 C-Reactive Protein NT-Pro-B Natriuret Pep Total Protein Albumin Globulin Albumin/Globulin Ratio Lipase Beta-Hydroxybutyrate Procalcitonin 12/22/20 12/22/20 12/22/20 01:51 01:50 01:49 WBC 14.4 H RBC 4.50 L Hgb 14.3 Hct 40.5 MCV 90.0 MCH 31.8 MCHC 35.3 RDW 12.0 Plt Count 290 MPV 9.7 Neut % (Auto) 90.7 H Lymph % (Auto) 2.4 L [place] % (Auto) 6.5 Eos % (Auto) 0.1 Baso % (Auto) 0.3 Lymph # (Auto) 0.35 L [place] # (Auto) 0.94 H Eos # (Auto) 0.01 Baso # (Auto) 0.04 Absolute Neutrophils 13.04 H ESR 49 H PT INR ABG Methemoglobin 0.3 L VBG pH 7.39 VBG pCO2 35.1 L VBG pO2 77.2 H VBG HCO3 20.7 L VBG Total CO2 21.8 L VBG O2 Saturation 91.7 H VBG Base Excess -4 L VBG Lactic Acid Carboxyhemoglobin 3.6 H Total Hemoglobin 13.8 Sodium 136 Potassium 3.7 Chloride 101 Carbon Dioxide 18 L Anion Gap 17.0 H BUN 29 H Creatinine 1.7 H GFR Calculation 36 Glucose 419 H Calcium 9.0 Magnesium 1.6 Total Bilirubin 0.5 AST 17 ALT 15 Alkaline Phosphatase 83 Troponin T C-Reactive Protein NT-Pro-B Natriuret Pep Total Protein 7.2 Albumin 3.5 Globulin 3.7 Albumin/Globulin Ratio 0.9 L Lipase 26 Beta-Hydroxybutyrate Procalcitonin 12/22/20 12/22/20 01:49 01:46 WBC RBC Hgb Hct MCV MCH MCHC RDW Plt Count MPV Neut % (Auto) Lymph % (Auto) [place] % (Auto) Eos % (Auto) Baso % (Auto) Lymph # (Auto) [place] # (Auto) Eos # (Auto) Baso # (Auto) Absolute Neutrophils ESR PT INR ABG Methemoglobin VBG pH VBG pCO2 VBG pO2 VBG HCO3 VBG Total CO2 VBG O2 Saturation VBG Base Excess VBG Lactic Acid Carboxyhemoglobin Total Hemoglobin Sodium Potassium Chloride Carbon Dioxide Anion Gap BUN Creatinine GFR Calculation Glucose Calcium Magnesium Total Bilirubin AST ALT Alkaline Phosphatase Troponin T C-Reactive Protein 6.90 H NT-Pro-B Natriuret Pep 3723.0 H Total Protein Albumin Globulin Albumin/Globulin Ratio Lipase Beta-Hydroxybutyrate 0.72 H Procalcitonin 0.16 H A/P Assessment and plan (1) Community acquired bilateral lower lobe pneumonia: Status: Acute (2) CHF (congestive heart failure): Status: Acute Qualifiers: Heart failure chronicity: unspecified Heart failure type: unspecified Qualified Code(s): I50.9 - Heart failure, unspecified (3) CKD (chronic kidney disease), stage III: Status: Chronic Qualifiers: Chronic kidney disease stage 3 subtype: stage 3b (GFR 30-44) Qualified Code(s): N18.32 - Chronic kidney disease, stage 3b (4) Diabetes mellitus type 2 in obese: Status: Chronic Comment: Refill insulin, since he has been off it for 5 days, and they left it at their other home in [place] Follow-up in 1 month with PCP (5) Clinical sepsis: Status: Acute (6) Delirium: Status: Acute Narrative A/P Narrative: Assessment and plan: 1. Community-acquired pneumonia bilateral lower lobes with associated delirium and clinical sepsis: Admit to inpatient MedSurg Covid negative so no isolation protocol Serial lactic acid Procalcitonin 0.16 Blood culture CBC with auto differential in the morning to trend WBC Rocephin Tylenol as needed fever Robitussin-DM as needed cough DuoNeb nebulizer as needed wheezing Supplemental oxygen therapy as needed titrate to achieve SPO2 greater than or equal to 92% #2 hyperglycemia uncontrolled type 2 diabetes: Hemoglobin A1c Hold oral hypoglycemics Lantus and aspart from home regimen Correctional scale insulin high-dose ACH S Accu-Chek AC at bedtime Hypoglycemia protocol Diabetic diet next #3 stage III chronic kidney disease secondary to type 2 diabetes: Avoid nephrotoxic agent Saline lock CMP in the morning to trend kidney functions next #4 history of chronic congestive heart failure, stable: Carvedilol 3.125 mg p.o. twice daily Lasix oral Losartan GI prophylaxis: Not currently indicated DVT prophylaxis: Heparin CODE STATUS: Full code Prognosis: Guarded Disposition: Inpatient MedSurg Time Spent With Patient Time: Total time spent is greater than 50% in coordination of care (as documented) at patient's floor/unit and/or counseling patient: Total time spent with greater than 50% in coordination of care (as documented) at patient's floor/unit and/or counseling patient:: 25 - 35 minutes
[2020-12-22] MEDS ORDERED: HYOSCYAMINE SULFATE 0.125 MG TABLET PO PRN ×3 (13:48→18:41)
[2020-12-22] MEDS ORDERED: ACETAMINOPHEN 500 MG TABLET PO PRN (14:51)
[2020-12-22] MEDS ORDERED: DEXTROSE 50% 50 ML VIAL IV PRN ×2 (15:00→18:41)
[2020-12-22] MEDS ORDERED: 0.9 % SODIUM CHLORIDE 10 ML SYRINGE IV SCH ×2 (15:00→22:00)
[2020-12-22] MEDS ORDERED: DEXTROSE 31 GM ORAL.SUSP PO PRN ×2 (15:00→18:41)
[2020-12-22] MEDS ORDERED: guaiFENesin/DEXTROMETHORPHAN ORAL SOL PO PRN ×2 (15:00→18:41)
[2020-12-22] MEDS ORDERED: IPRATROPIUM/ALBUTEROL 3 ML AMPUL.NEB NEB PRN ×2 (15:00→18:41)
[2020-12-22] MEDS ORDERED: ONDANSETRON 4 MG/2 ML VIAL IV PRN ×2 (15:00→18:41)
[2020-12-22] MEDS ORDERED: NON FORMULARY MEDICATION 1 DOSE MISCELL (Acetaminophen 1,000 MG) PO PRN (15:00)
[2020-12-22] MEDS ORDERED: cefTRIAXone 1 GM in DEXTROSE 5% IN WATER 50 ML IV SCH (15:00)
[2020-12-22] MEDS ORDERED: ZOLPIDEM 5 MG TABLET PO PRN ×2 (15:00→18:41)
[2020-12-22] MEDS ORDERED: ACETAMINOPHEN 325 MG TABLET PO PRN (15:00)
[2020-12-22] MEDS ORDERED: FUROSEMIDE 20 MG TABLET PO SCH (16:00)
[2020-12-22] MEDS ORDERED: LORazepam 2 MG/ML VIAL IV PRN ×3 (16:04→18:41)
[2020-12-22 16:16] LABS: Estimated Average Glucose(eAG) 280 mg/dL; Hemoglobin A1C 11.4 % Hgb (4.0-6.0)
[2020-12-22] MEDS ORDERED: INSULIN LISPRO 1 UNIT/0.01 ML UNIT SQ SCH ×3 (17:00→17:30)
[2020-12-22] MEDS ORDERED: cefTRIAXone 1 GM VIAL IV SCH (17:00)
[2020-12-22] MEDS ORDERED: cloNIDine HCL 0.1 MG TABLET PO PRN ×2 (17:54→18:41)
[2020-12-22] MEDS: CARVEDILOL 3.125 MG TABLET PO SCH ×2 (18:39→18:41)
[2020-12-22] MEDS ORDERED: LORazepam 2 MG/ML VIAL ONE (18:52)
[2020-12-22] MEDS: LORazepam 2 MG/ML VIAL IV PRN ×2 (18:58→20:09)
[2020-12-22] MEDS: POTASSIUM CHLORIDE 20 MEQ, MAGNESIUM SULFATE 16.24 MEQ, THIAMINE 100 MG, MVI, ADULT NO.... IV SCH (20:16)
[2020-12-22] MEDS: 0.9 % SODIUM CHLORIDE 10 ML SYRINGE IV SCH ×2 (20:18→20:19)
[2020-12-22] MEDS: SENNOSIDES 1 TABLET PO SCH (20:19)
[2020-12-22] MEDS: DOCUSATE SODIUM 100 MG CAPSULE PO SCH (20:19)
[2020-12-22] MEDS: hydrALAZINE 20 MG/ML VIAL IV PRN (20:23)
[2020-12-22] MEDS: HEPARIN 5,000 UNIT/ML VIAL SQ SCH (20:23)
[2020-12-22] MEDS: INSULIN LISPRO 1 UNIT/0.01 ML UNIT SQ SCH (20:29)
[2020-12-22] MEDS ORDERED: DOCUSATE SODIUM 100 MG CAPSULE PO SCH (21:00)
[2020-12-22] MEDS ORDERED: HEPARIN 5,000 UNIT/ML VIAL SQ SCH (21:00)
[2020-12-22] MEDS ORDERED: SENNOSIDES 1 TABLET PO SCH (21:00)
[2020-12-23] MEDS: LORazepam 2 MG/ML VIAL IV PRN ×3 (00:29→22:27)
[2020-12-23] MEDS: 0.9 % SODIUM CHLORIDE 10 ML SYRINGE IV SCH ×6 (04:08→21:17)
[2020-12-23] MEDS: POTASSIUM CHLORIDE 20 MEQ, MAGNESIUM SULFATE 16.24 MEQ, THIAMINE 100 MG, MVI, ADULT NO.... IV SCH ×2 (05:57→13:35)
[2020-12-23 07:17] LABS: Basophils # (Auto) 0.06 K/mcL (0.00-0.30); Basophils % (Auto) 0.5 % (0.0-2.0); Eosinophils # (Auto) 0.09 K/mcL (0.00-0.70); Eosinophils % (Auto) 0.7 % (0.0-7.0); Hematocrit 45.4 % (40.1-51.0); Hemoglobin 14.9 g/dL (13.7-17.5); Lymphocytes # (Auto) 1.03 K/mcL (1.50-4.80); Lymphocytes % (Auto) 8.1 % (15.5-49.0); Mean Cell Volume 93.2 fL (80.0-100.0); Mean Corpuscular HGB Conc 32.8 g/dL (31.0-36.0); Mean Platelet Volume 9.8 fL (7.4-10.4); Monocytes # (Auto) 1.27 K/mcL (0.10-0.90); Neutrophils % (Auto) 80.7 % (38.0-78.0); Platelet Count 250 K/mcL (140-440); RBC 4.87 M/mcL (4.63-6.08); Red Cell Distribution Width 12.6 % (11.5-14.5); WBC 12.7 K/mcL (4.5-11.0)
[2020-12-23 07:46] LABS: ALT/SGPT 11 U/L (<40); AST/SGOT 21 U/L (<40); Albumin/Globulin Ratio 0.7 (1.0-2.3); Alkaline Phosphatase 86 U/L (39-117); Bilirubin,Total 0.8 mg/dL (0.1-1.0); Blood Urea Nitrogen 21 mg/dL (8-23); Calcium 9.2 mg/dL (8.6-10.4); Carbon Dioxide 18 mmol/L (22-30); Chloride 102 mmol/L (96-108); Globulin 4.6 gm/dL (2.2-3.7); Glomerular Filtration Rate 50; Glucose 233 mg/dL (70-105)
--- NOTE | 2020-12-23 08:47 | Internal Med Progress Note ---
SUBJECTIVE Subjective Patient information: Note initiated : 12/23/20 at 8:42 am Service Date, if different from initiated Date: [] Patient: Wolf Miles 85 y/o M admitted on 12/22/20 for Dementia. Chief Complaint: [Immunity acquired pneumonia and delirium tremors] Interval history: History of present illness: Mr. Miles is a 85 year old M history of congestive heart failure, type 2 diabetes mellitus, clinically disease stage III, presenting with altered mental status. History limited by lack of caregiver at the bedside as well as clinical situations. Unknown time of onset or durations of symptoms. Patient denies any confusions. Patient denies any shortness of breath. Patient is complaining of nonproductive cough. Patient denies any wheezing. Patient denies any fever chills or diaphoresis. Vital signs significant for mild tachycardia heart rate in the 90s and tachypnea with a breathing up to mid 20s. Labs significant for leukocytosis with WBC 14.4. Serum lactic acid 1.9. Serum creatinine level 1.7 at baseline. Serum glucose elevated 419. Serum BNP is 3723. Chest x-ray significant for bibasilar infiltrates. 12/23: s/p 16mg of Ativan given overnight, currently well sedated and sleeping. Low grade fever with Tmax 37.5 overnight. Blood culture no growth to date. Subjective not obtained due to clinical situations. Constitutional Vitals: Vital Signs Temp Pulse Resp BP Pulse Ox 37.5 C H 117 H 22 136/76 94 12/23/20 03:19 12/23/20 03:19 12/23/20 03:19 12/23/20 03:19 12/23/20 03:19 Period Temp Pulse Resp BP Sys/Porter Pulse Ox Last 24 Hr 36.6 C-37.5 C 86-121 17-25 133-200/67-124 81-96 Intake and Output 12/22/20 12/23/20 12/23/20 21:59 05:59 13:59 Intake Total 0 1025 Output Total 1000 350 Balance -1000 -350 1025 Weight 90.718 kg Intake & Output: Intake & Output 12/22/20 12/23/20 12/23/20 21:59 05:59 13:59 Intake Total 0 1025 Output Total 1000 350 Balance -1000 -350 1025 Weight 90.718 kg Intake: IV 1025 Potassium Chloride 20 Meq 1025 Magnesium Sulfate 16.24 Meq Vitamin B1 100 mg Infuvite Adult 10 ml In Sodium Chloride 0.9% 1,000 ml @ 100 mls/hr IV . [id number] [facility] Rx#:[id number] Oral 0 Output: Urine Catheter Amount 1000 350 Other: Urine Appearance Small Blood Clots Cloudy Uretheral (Krause) Small Blood Clots Urine Color Blood Tinged Tea Colored Uretheral (Krause) [place] Blood Tinged Blood Tinged Urine Odor Strong Uretheral (Krause) Strong Normal General appearance: no acute distress Exam: sleeping and well sedated Head Head exam: Present atraumatic and normocephalic Eye Eye exam: Present EOMI and PERRL ENT ENT exam: Present mucous membranes moist, normal exam and normal external ear exam Neck Neck exam: Present normal inspection; Absent lymphadenopathy, tenderness and thyromegaly Respiratory Respiratory exam: Absent accessory muscle use, respiratory distress and wheezes Cardiovascular Cardiovascular exam: Present normal rate and rhythm; Absent JVD GI/Abdominal GI/Abdominal exam: Present normal bowel sounds and soft; Absent organomegaly and tenderness Rectal Rectal exam: Present deferred Extremities Exam Extremities exam: Present full ROM and normal capillary refill; Absent normal inspection and tenderness Additional comments: Right foot transmetatarsal amputation Neurological Exam Neurological exam: Present altered and CN II-XII intact; Absent alert, motor sensory deficit and oriented X3 Additional comments: well sedated and sleeping Psychiatric Psychiatric exam: Present normal affect and normal mood; Absent anxious and depressed Skin Skin exam: Present dry and intact OBJ DATA Labs CBC & Chem 7: 12/23/20 06:13 12/23/20 06:12 Labs: Abnormal Lab Results 12/23/20 12/23/20 12/22/20 06:13 06:12 15:19 WBC 12.7 H RBC Neut % (Auto) 80.7 H Lymph % (Auto) 8.1 L Lymph # (Auto) 1.03 L [place] # (Auto) 1.27 H Absolute Neutrophils 10.24 H ESR PT INR ABG Methemoglobin VBG pCO2 VBG pO2 VBG HCO3 VBG Total CO2 VBG O2 Saturation VBG Base Excess Carboxyhemoglobin Carbon Dioxide 18 L Anion Gap 18.0 H BUN Creatinine 1.3 H Glucose 233 H Hemoglobin A1c 11.4 H C-Reactive Protein NT-Pro-B Natriuret Pep Albumin 3.0 L Globulin 4.6 H Albumin/Globulin Ratio 0.7 L Beta-Hydroxybutyrate Procalcitonin 12/22/20 12/22/20 12/22/20 01:51 01:51 01:50 WBC 14.4 H RBC 4.50 L Neut % (Auto) 90.7 H Lymph % (Auto) 2.4 L Lymph # (Auto) 0.35 L [place] # (Auto) 0.94 H Absolute Neutrophils 13.04 H ESR 49 H PT 16.7 H INR 1.3 H ABG Methemoglobin VBG pCO2 VBG pO2 VBG HCO3 VBG Total CO2 VBG O2 Saturation VBG Base Excess Carboxyhemoglobin Carbon Dioxide 18 L Anion Gap 17.0 H BUN 29 H Creatinine 1.7 H Glucose 419 H Hemoglobin A1c C-Reactive Protein NT-Pro-B Natriuret Pep Albumin Globulin Albumin/Globulin Ratio 0.9 L Beta-Hydroxybutyrate Procalcitonin 12/22/20 12/22/20 12/22/20 01:49 01:49 01:46 WBC RBC Neut % (Auto) Lymph % (Auto) Lymph # (Auto) [place] # (Auto) Absolute Neutrophils ESR PT INR ABG Methemoglobin 0.3 L VBG pCO2 35.1 L VBG pO2 77.2 H VBG HCO3 20.7 L VBG Total CO2 21.8 L VBG O2 Saturation 91.7 H VBG Base Excess -4 L Carboxyhemoglobin 3.6 H Carbon Dioxide Anion Gap BUN Creatinine Glucose Hemoglobin A1c C-Reactive Protein 6.90 H NT-Pro-B Natriuret Pep 3723.0 H Albumin Globulin Albumin/Globulin Ratio Beta-Hydroxybutyrate 0.72 H Procalcitonin 0.16 H Meds: Medications Acetaminophen (Acetaminophen 325 Mg Tablet) 650 mg PO Q6HP PRN; Protocol PRN Reason: Per Pain Protocol/Fever > 101 Albuterol/Ipratropium (Ipratropium/Albuterol 3 Ml Ampul.Neb) 3 ml NEB Q4HRT PRN PRN Reason: Wheezing Carvedilol (Carvedilol 3.125 Mg Tablet) 3.125 mg PO BIDCC BECK Ceftriaxone Sodium (Ceftriaxone 1 Gm Vial) 1 gm IV Q24H [facility] Clonidine HCl (Clonidine Hcl 0.1 Mg Tablet) 0.1 mg PO Q4HP PRN PRN Reason: ALC Dextrose (Dextrose 50% 50 Ml Vial) 0 ml IV UD PRN PRN Reason: Hypoglycemia Diagnostic Test (Pha) (Accu-Chek 1 Each Strip) 1 each FS ACHS [facility] Last Admin: 12/23/20 00:29 Dose: 1 each Documented by: Docusate Sodium (Docusate Sodium 100 Mg Capsule) 100 mg PO BID [facility]EC[facility] Last Admin: 12/22/20 20:19 Dose: Not Given Documented by: Folic Acid (Folic Acid 1 Mg Tablet) 1 mg PO DAILY [facility] Furosemide (Furosemide 20 Mg Tablet) 20 mg PO BIDD [facility] Glucose (Dextrose 31 Gm Oral.Susp) 15 gm PO PRN PRN PRN Reason: Hypoglycemia Guaifenesin (Guaifenesin/Dextromethorphan Oral Kay) 10 ml PO Q4HP PRN PRN Reason: Cough Heparin Sodium (Porcine) (Heparin 5,000 Unit/Ml Vial) 5,000 unit SQ Q12 [facility] Last Admin: 12/22/20 20:23 Dose: 5,000 unit Documented by: Hydralazine HCl (Hydralazine 20 Mg/Ml Vial) 10 mg IV Q4HP PRN PRN Reason: Hypertension Last Admin: 12/22/20 20:23 Dose: 10 mg Documented by: Hyoscyamine (Hyoscyamine Sulfate 0.125 Mg Tablet) 0.125 mg PO QIDP PRN PRN Reason: dyspepsia Azithromycin 500 mg/ Dextrose 250 mls @ 250 mls/hr IV Q24H [facility]; Protocol Stop: 12/25/20 10:59 Thiamine HCl 100 mg/ Sodium (Chloride) 51 mls @ 50 mls/hr IV DAILY [facility] Potassium Chloride 20 meq/Magnesium Sulfate 16.24 meq/Thiamine HCl 100 mg/Multivitamins/Minerals 10 ml/Sodium Chloride 1,025 mls @ 100 mls/hr IV .[id number] [facility] Last Infusion: 12/23/20 06:31 Dose: Infused Documented by: Insulin Glargine (Insulin Glargine, Human 1 Unit/0.01 Ml) 25 unit SQ QDAY [facility] Insulin Human Lispro (Insulin Lispro 1 Unit/0.01 Ml Unit) 15 unit SQ TIDAC [facility] Insulin Human Lispro (Insulin Lispro 1 Unit/0.01 Ml Unit) 0 unit SQ ACHS [facility]; Protocol Last Admin: 12/22/20 20:29 Dose: Not Given Documented by: Iron Carb/Multivit/Hydraulic Auto Jack Mechanic/Folic Acid (Multivit,Ther Iron,Ca,Fa & Min 1 Tablet) 1 tab PO DAILY [facility] Lorazepam (Lorazepam 2 Mg/Ml Vial) 0.5 mg IV Q4-6HP PRN PRN Reason: ANXIETY/SEDATION Lorazepam (Lorazepam 2 Mg/Ml Vial) 0 mg IV Q4HP PRN; Protocol PRN Reason: Alcohol Withdrawal Last Admin: 12/23/20 05:29 Dose: 2 mg Documented by: Losartan Potassium (Losartan 25 Mg Tablet) 25 mg PO QDAY [facility] Mupirocin (Mupirocin Oint 2% 22gm) 1 dose NARES BID [facility] Ondansetron HCl (Ondansetron 4 Mg/2 Ml Vial) 4 mg IV Q6HP PRN PRN Reason: Nausea And Vomiting Senna (Sennosides 1 Tablet) 2 tab PO HS [facility] Last Admin: 12/22/20 20:19 Dose: Not Given Documented by: Sodium Chloride (0.9 % Sodium Chloride 10 Ml Syringe) 10 ml IV Q8 [facility] Last Admin: 12/23/20 04:08 Dose: Not Given Documented by: Sodium Chloride (0.9 % Sodium Chloride 10 Ml Syringe) 10 ml IV Q8 [facility] Last Admin: 12/23/20 04:08 Dose: Not Given Documented by: Zolpidem Tartrate (Zolpidem 5 Mg Tablet) 5 mg PO HSP PRN PRN Reason: Insomnia ABG Interpretation ABG results: 12/22/20 01:49 ABG Methemoglobin 0.3 L VBG pH 7.39 VBG pCO2 35.1 L VBG pO2 77.2 H VBG HCO3 20.7 L VBG Total CO2 21.8 L VBG O2 Saturation 91.7 H VBG Base Excess -4 L A/P Assessment and plan (1) Community acquired bilateral lower lobe pneumonia: Status: Acute (2) CHF (congestive heart failure): Status: Acute Qualifiers: Heart failure chronicity: unspecified Heart failure type: unspecified Qualified Code(s): I50.9 - Heart failure, unspecified (3) CKD (chronic kidney disease), stage III: Status: Chronic Qualifiers: Chronic kidney disease stage 3 subtype: stage 3b (GFR 30-44) Qualified Code(s): N18.32 - Chronic kidney disease, stage 3b (4) Diabetes mellitus type 2 in obese: Status: Chronic Comment: Refill insulin, since he has been off it for 5 days, and they left it at their other home in [place] Follow-up in 1 month with PCP (5) Clinical sepsis: Status: Acute (6) Delirium: Status: Acute (7) Delirium tremens: Status: Acute Narrative A/P Narrative: Assessment and plan: 1. Community-acquired pneumonia bilateral lower lobes with associated delirium and clinical sepsis: [facility] so no [facility] protocol Serial lactic acid Procalcitonin 0.16 Blood culture, no growth to date CBC with auto differential in the morning to trend WBC Rocephin Tylenol as needed fever Robitussin-DM as needed cough DuoNeb nebulizer as needed wheezing Supplemental oxygen therapy as needed titrate to achieve SPO2 greater than or equal to 92% #2 hyperglycemia uncontrolled type 2 diabetes: Hemoglobin A1c 11.4 Hold oral hypoglycemics Lantus and aspart from home regimen Correctional scale insulin high-dose ACH S Accu-Chek AC at bedtime Hypoglycemia protocol Diabetic diet next #3 stage III chronic kidney disease secondary to type 2 diabetes: Avoid nephrotoxic agent Saline lock CMP in the morning to trend kidney functions next #4 history of chronic congestive heart failure, stable: Carvedilol 3.125 mg p.o. twice daily Lasix oral Losartan 5. Delirium Tremens: Banana bags X3 days CIWA protocol with Ativan PRN alcohol withdrawal symptoms GI prophylaxis: Not currently indicated DVT prophylaxis: Heparin CODE STATUS: Full code Prognosis: Guarded Disposition: Inpatient MedSur Time Spent With Patient Time: Total time spent is greater than 50% in coordination of care (as documented) at patient's floor/unit and/or counseling patient: QUALITY VTE Deep Vein Thrombosis/Pulmonary Embolism Present on Admission: No
[2020-12-23] MEDS ORDERED: AZITHROMYCIN 500 MG in DEXTROSE 5% IN WATER 250 ML IV SCH (09:00)
[2020-12-23] MEDS ORDERED: THIAMINE 100 MG in 0.9 % SODIUM CHLORIDE 50 ML IV SCH (09:00)
[2020-12-23] MEDS ORDERED: LOSARTAN 25 MG TABLET PO SCH ×2 (09:00)
[2020-12-23] MEDS ORDERED: MULTIVIT,THER IRON,CA,FA & MIN 1 TABLET PO SCH (09:00)
[2020-12-23] MEDS ORDERED: FOLIC ACID 1 MG TABLET PO SCH (09:00)
[2020-12-23] MEDS ORDERED: INSULIN GLARGINE, HUMAN 1 UNIT/0.01 ML SQ SCH ×2 (09:00)
[2020-12-23] MEDS: hydrALAZINE 20 MG/ML VIAL IV PRN ×2 (09:03→23:17)
[2020-12-23] MEDS: CARVEDILOL 3.125 MG TABLET PO SCH ×2 (09:34→16:25)
[2020-12-23] MEDS: FUROSEMIDE 20 MG TABLET PO SCH ×2 (09:35→16:25)
[2020-12-23] MEDS: HEPARIN 5,000 UNIT/ML VIAL SQ SCH ×2 (09:49→19:52)
[2020-12-23] MEDS: DOCUSATE SODIUM 100 MG CAPSULE PO SCH ×2 (09:49→19:49)
[2020-12-23] MEDS: FOLIC ACID 1 MG TABLET PO SCH (09:49)
[2020-12-23] MEDS: MULTIVIT,THER IRON,CA,FA & MIN 1 TABLET PO SCH (09:49)
[2020-12-23] MEDS: LOSARTAN 25 MG TABLET PO SCH (09:49)
[2020-12-23] MEDS: INSULIN LISPRO 1 UNIT/0.01 ML UNIT SQ SCH ×7 (11:14→19:47)
[2020-12-23] MEDS: AZITHROMYCIN 500 MG in DEXTROSE 5% IN WATER 250 ML IV SCH (12:18)
[2020-12-23] MEDS: INSULIN GLARGINE, HUMAN 1 UNIT/0.01 ML SQ SCH (12:46)
[2020-12-23] MEDS: THIAMINE 100 MG in 0.9 % SODIUM CHLORIDE 50 ML IV SCH (12:47)
--- NOTE | 2020-12-23 13:13 | Internal Med Progress Note ---
SUBJECTIVE Subjective Patient information: Note initiated : 12/23/20 at 1:05 pm Service Date, if different from initiated Date: [] Patient: Wolf Miles 85 y/o M admitted on 12/22/20 for Dementia. Chief Complaint: [] Interval history: History of present illness: Mr. Miles is a 85 year old M history of congestive heart failure, type 2 diabetes mellitus, clinically disease stage III, presenting with altered mental status. History limited by l ack of caregiver at the bedside as well as clinical situations. Unknown time of onset or durations of symptoms. Patient denies any confusions. Patient denies any shortness of breath. Patient is complaining of nonproductive cough. Patient denies any wheezing. Patient denies any fever chills or diaphoresis. Vital signs significant for mild tachycardia heart rate in the 90s and tachypnea with a breathing up to mid 20s. Labs significant for leukocytosis with WBC 14.4. Serum lactic acid 1.9. Serum creatinine level 1.7 at baseline. Serum glucose elevated 419. Serum BNP is 3723. Chest x-ray significant for bibasilar infiltrates. 12/23: s/p 16mg of Ativan given overnight, currently well sedated and sleeping. Low grade fever with Tmax 37.5 overnight. Blood culture no growth to date. S ubjective not obtained due to clinical situations. 12/24 Constitutional Vitals: Vital Signs Temp Pulse Resp BP Pulse Ox 98.0 F 78 24 H 136/76 92 12/23/20 08:00 12/23/20 08:00 12/23/20 08:00 12/23/20 03:19 12/23/20 08:00 Period Temp Pulse Resp BP Sys/Porter Pulse Ox Last 24 Hr 97.9 F-99.5 F 78-121 17-24 136-200/67-94 92-96 Intake and Output 12/22/20 12/23/20 12/23/20 21:59 05:59 13:59 Intake Total 0 1025 Output Total 1000 350 Balance -1000 -350 1025 Weight 90.718 kg 90.718 kg Patient Weight 12/24/20 05:59 Weight 90.718 kg Intake & Output: Intake & Output 12/22/20 12/23/20 12/23/20 21:59 05:59 13:59 Intake Total 0 1025 Output Total 1000 350 Balance -1000 -350 1025 Weight 90.718 kg 90.718 kg Intake: IV 1025 Potassium Chloride 20 Meq 1025 Magnesium Sulfate 16.24 Meq Vitamin B1 100 mg Infuvite Adult 10 ml In Sodium Chloride 0.9% 1,000 ml @ 100 mls/hr IV . [id number] [facility] Rx#:[id number] Oral 0 Output: Urine Catheter Amount 1000 350 Other: Urine Appearance Small Blood Clots Cloudy Uretheral (Krause) Small Blood Clots Urine Color Blood Tinged Tea Colored Uretheral (Krause) [place] Blood Tinged Blood Tinged Urine Odor Strong Uretheral (Krause) Strong Normal Exam: General: Alert, Awake, No acute Distress Eyes/N/T: EOMI, Head/Neck: neck supple, CV: RRR, No murmurs, Pulm: Clear b/l, no wheezing/rhonchi/rales Abd: soft, nontender, +BS x4 Ext: no clubbing/cyanosis/edema Neuro: Alert, no focal deficits, moves all extremities, Skin: warm/dry OBJ DATA Labs CBC & Chem 7: 12/23/20 06:13 12/23/20 06:12 Labs: Abnormal Lab Results 12/23/20 12/23/20 12/22/20 06:13 06:12 15:19 WBC 12.7 H RBC Neut % (Auto) 80.7 H Lymph % (Auto) 8.1 L Lymph # (Auto) 1.03 L [place] # (Auto) 1.27 H Absolute Neutrophils 10.24 H ESR PT INR ABG Methemoglobin VBG pCO2 VBG pO2 VBG HCO3 VBG Total CO2 VBG O2 Saturation VBG Base Excess Carboxyhemoglobin Carbon Dioxide 18 L Anion Gap 18.0 H BUN Creatinine 1.3 H Glucose 233 H Hemoglobin A1c 11.4 H C-Reactive Protein NT-Pro-B Natriuret Pep Albumin 3.0 L Globulin 4.6 H Albumin/Globulin Ratio 0.7 L Beta-Hydroxybutyrate Procalcitonin 12/22/20 12/22/20 12/22/20 01:51 01:51 01:50 WBC 14.4 H RBC 4.50 L Neut % (Auto) 90.7 H Lymph % (Auto) 2.4 L Lymph # (Auto) 0.35 L [place] # (Auto) 0.94 H Absolute Neutrophils 13.04 H ESR 49 H PT 16.7 H INR 1.3 H ABG Methemoglobin VBG pCO2 VBG pO2 VBG HCO3 VBG Total CO2 VBG O2 Saturation VBG Base Excess Carboxyhemoglobin Carbon Dioxide 18 L Anion Gap 17.0 H BUN 29 H Creatinine 1.7 H Glucose 419 H Hemoglobin A1c C-Reactive Protein NT-Pro-B Natriuret Pep Albumin Globulin Albumin/Globulin Ratio 0.9 L Beta-Hydroxybutyrate Procalcitonin 12/22/20 12/22/20 12/22/20 01:49 01:49 01:46 WBC RBC Neut % (Auto) Lymph % (Auto) Lymph # (Auto) [place] # (Auto) Absolute Neutrophils ESR PT INR ABG Methemoglobin 0.3 L VBG pCO2 35.1 L VBG pO2 77.2 H VBG HCO3 20.7 L VBG Total CO2 21.8 L VBG O2 Saturation 91.7 H VBG Base Excess -4 L Carboxyhemoglobin 3.6 H Carbon Dioxide Anion Gap BUN Creatinine Glucose Hemoglobin A1c C-Reactive Protein 6.90 H NT-Pro-B Natriuret Pep 3723.0 H Albumin Globulin Albumin/Globulin Ratio Beta-Hydroxybutyrate 0.72 H Procalcitonin 0.16 H Meds: Medications Acetaminophen (Acetaminophen 325 Mg Tablet) 650 mg PO Q6HP PRN; Protocol PRN Reason: Per Pain Protocol/Fever > 101 Albuterol/Ipratropium (Ipratropium/Albuterol 3 Ml Ampul.Neb) 3 ml NEB Q4HRT PRN PRN Reason: Wheezing Carvedilol (Carvedilol 3.125 Mg Tablet) [facility] Last Admin: 12/23/20 09:34 Dose: Not Given Documented by: Ceftriaxone Sodium (Ceftriaxone 1 Gm Vial) 1 gm IV Q24H [facility] Clonidine HCl (Clonidine Hcl 0.1 Mg Tablet) 0.1 mg PO Q4HP PRN PRN Reason: ALC Dextrose (Dextrose 50% 50 Ml Vial) 0 ml IV UD PRN PRN Reason: Hypoglycemia Diagnostic Test (Pha) (Accu-Chek 1 Each Strip) 1 each FS ACHS [facility] Last Admin: 12/23/20 12:20 Dose: 1 each Documented by: Docusate Sodium (Docusate Sodium 100 Mg Capsule) 100 mg PO BID [facility] Last Admin: 12/23/20 09:49 Dose: Not Given Documented by: Folic Acid (Folic Acid 1 Mg Tablet) 1 mg PO DAILY [facility] Last Admin: 12/23/20 09:49 Dose: Not Given Documented by: Furosemide (Furosemide 20 Mg Tablet) 20 mg PO BIDD [facility] Last Admin: 12/23/20 09:35 Dose: Not Given Documented by: Glucose (Dextrose 31 Gm Oral.Susp) 15 gm PO PRN PRN PRN Reason: Hypoglycemia Guaifenesin (Guaifenesin/Dextromethorphan Oral Kay) 10 ml PO Q4HP PRN PRN Reason: Cough Heparin Sodium (Porcine) (Heparin 5,000 Unit/Ml Vial) 5,000 unit SQ Q12 [facility] Last Admin: 12/23/20 09:49 Dose: Not Given Documented by: Hydralazine HCl (Hydralazine 20 Mg/Ml Vial) 10 mg IV Q4HP PRN PRN Reason: Hypertension Last Admin: 12/23/20 09:03 Dose: 10 mg Documented by: Hyoscyamine (Hyoscyamine Sulfate 0.125 Mg Tablet) 0.125 mg PO QIDP PRN PRN Reason: dyspepsia Azithromycin 500 mg/ Dextrose 250 mls @ 250 mls/hr IV Q24H [facility]; Protocol Stop: 12/25/20 10:59 Last Admin: 12/23/20 12:18 Dose: 250 mls/hr Documented by: Thiamine HCl 100 mg/ Sodium (Chloride) 51 mls @ 50 mls/hr IV DAILY [facility] Last Admin: 12/23/20 12:47 Dose: 50 mls/hr Documented by: Acetaminophen (Ofirmev) 650 mg in 65 mls @ 130 mls/hr IV Q6HP PRN; Protocol PRN Reason: PAIN/FEVER > 101 Potassium Chloride 20 meq/Magnesium Sulfate 16.24 meq/Thiamine HCl 100 mg/Multivitamins/Minerals 10 ml/Sodium Chloride 1,025 mls @ 100 mls/hr IV DAILY [facility] Stop: 12/24/20 19:14 Insulin Glargine (Insulin Glargine, Human 1 Unit/0.01 Ml) 25 unit SQ QDAY [facility] Last Admin: 12/23/20 12:46 Dose: 25 units Documented by: Insulin Human Lispro (Insulin Lispro 1 Unit/0.01 Ml Unit) 15 unit SQ TIDAC [facility] Last Admin: 12/23/20 12:47 Dose: 25 units Documented by: Insulin Human Lispro (Insulin Lispro 1 Unit/0.01 Ml Unit) 0 unit SQ [facility]; Protocol Last Admin: 12/23/20 12:47 Dose: 15 units Documented by: Iron Carb/Multivit/[place]/Folic Acid (Multivit,Ther Iron,Ca,Fa & Min 1 Tablet) 1 tab PO DAILY [facility] Last Admin: 12/23/20 09:49 Dose: Not Given Documented by: Lorazepam (Lorazepam 2 Mg/Ml Vial) 0.5 mg IV Q4-6HP PRN PRN Reason: ANXIETY/SEDATION Lorazepam (Lorazepam 2 Mg/Ml Vial) 0 mg IV Q4HP PRN; Protocol PRN Reason: Alcohol Withdrawal Last Admin: 12/23/20 05:29 Dose: 2 mg Documented by: Losartan Potassium (Losartan 25 Mg Tablet) 25 mg PO QDAY [facility] Last Admin: 12/23/20 09:49 Dose: Not Given Documented by: Mupirocin (Mupirocin Oint 2% 22gm) 1 dose NARES BID [facility] Ondansetron HCl (Ondansetron 4 Mg/2 Ml Vial) 4 mg IV Q6HP PRN PRN Reason: Nausea And Vomiting Senna (Sennosides 1 Tablet) 2 tab PO HS [facility] Last Admin: 12/22/20 20:19 Dose: Not Given Documented by: Sodium Chloride (0.9 % Sodium Chloride 10 Ml Syringe) 10 ml IV Q8 [facility] Last Admin: 12/23/20 04:08 Dose: Not Given Documented by: Sodium Chloride (0.9 % Sodium Chloride 10 Ml Syringe) 10 ml IV Q8 [facility] Last Admin: 12/23/20 04:08 Dose: Not Given Documented by: Warfarin Sodium (Warfarin Per Pharmacy) 1 order PO DAILY@1400 [facility] Zolpidem Tartrate (Zolpidem 5 Mg Tablet) 5 mg PO HSP PRN PRN Reason: Insomnia ABG Interpretation ABG results: 12/22/20 01:49 ABG Methemoglobin 0.3 L VBG pH 7.39 VBG pCO2 35.1 L VBG pO2 77.2 H VBG HCO3 20.7 L VBG Total CO2 21.8 L VBG O2 Saturation 91.7 H VBG Base Excess -4 L A/P Narrative A/P Narrative: Assessment and plan: #CAP w/associated delirium & clinical sepsis: -Covid negative so no isolation protocol -Rocephin #Sepsis: 2/2 above #Acute hypoxic respiratory failure: 2/2 above -on 3l oxymask #Encephalopathy: 2/2 above + underlying Dementia +/- ?ETOH w/d: -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
[2020-12-23] MEDS: MUPIROCIN OINT 2% 22GM NARES SCH ×2 (13:35→19:50)
[2020-12-23] MEDS: cefTRIAXone 1 GM VIAL IV SCH (13:36)
[2020-12-23] MEDS ORDERED: HALOPERIDOL LACTATE 5 MG/ML VIAL IV PRN (14:12)
--- NOTE | 2020-12-23 19:07 | General Surgery Consult Note ---
HPI Data of Consult Consult date: 12/23/20 Requesting physician: Nikko Rivers Primary Care Provider: Joey Brooks PA-C Consult Narrative Patient Information: Note initiated : 12/23/20 at 6:57 pm Service Date, if different from initiated Date: [] Patient: Wolf Miles 85 y/o M admitted on 12/22/20 for Dementia. Chief Complaint: [] Chief complaint: Wounds lower legs. Reason for consult: Wound management. cc:: CC: Nikko Rivers MD I reviewed details pertaining to his admission, later saw this patient along with Gary Dwyer RN, Inpatient wound care nurse. PFSH PFSH All Active Problems Delirium tremens (Acute) Delirium (Acute) Clinical sepsis (Acute) Community acquired bilateral lower lobe pneumonia (Acute) Pneumonia (Acute) Hyperglycemia (Acute) Leukocytosis (Acute) CHF (congestive heart failure) (Acute) Left elbow pain (Acute) Medicare annual wellness visit, initial (Acute) Cellulitis of toe of left foot (Acute) Abdominal pain (Acute) Pyelonephritis of left kidney (Acute) Diverticulosis (Acute) BPH w urinary obs/LUTS (Chronic) Proteinuria due to type 2 diabetes mellitus (Acute) Depression (Acute) Dementia with behavioral disturbance (Acute) Abdominal pain (Acute) Hydronephrosis (Acute) Asymptomatic hypertensive urgency (Acute) MRSA exposure (Chronic) Skin ulcer of left great toe (Chronic) Open wound of left great toe (Acute) H/O skin graft (Acute) Postoperative ecchymosis (Acute) CKD (chronic kidney disease), stage III (Chronic) Macular degeneration (Chronic) 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) CAD (coronary artery disease) (Chronic) PVD (peripheral vascular disease) (Chronic) Diabetes mellitus type 2 in obese (Chronic) Essential hypertension (Chronic) Metabolic syndrome (Chronic) Status post insertion of spinal cord stimulator (Chronic) NAYANA (obstructive sleep apnea) (Chronic) Hx of CABG (Chronic) History of heart valve replacement (Chronic) History of kidney stones (Chronic) History of foot surgery (Chronic) Dementia (Chronic) Afib (Chronic) Neuropathy (Chronic) Diarrhea (Chronic) Substance abuse (Chronic) Kidney stones (Chronic) Joint pain (Chronic) Insomnia (Chronic) High blood pressure (Chronic) Heart trouble (Chronic) Diabetes (Chronic) Daytime sleepiness (Chronic) Bleeding tendency (Chronic) Laceration of head (Chronic) Encounter for removal of sutures (Chronic) Ribs, multiple fractures (Chronic) Rib fractures (Chronic) Inadequate pain control (Chronic) Diabetes (Chronic) Hypertension (Chronic) Diabetic foot ulcer (Chronic) Laceration (Chronic) Avulsion of skin (Chronic) SCC (squamous cell carcinoma), 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 On metformin. Heart trouble High blood pressure Insomnia Joint pain Kidney stones Left elbow pain Medicare annual wellness visit, initial Neuropathy Bilateral lower extremities to approximately knee level NAYANA (obstructive sleep apnea) Had sleep study in the past. Mask not tolerated. Substance abuse Surgical History History of foot surgery Right transmetatarsal amputation~18 months ago History of heart valve replacement ~2006 History of kidney stones Hx of CABG ~2006 Status post insertion of spinal cord stimulator 03/04/16 Dr Patrick Family History Other No pertinent family history Social History marital status: occupational status: retired occupation: [employer] occupational exposures/hazards: Yes alcohol intake frequency: 2+ drinks per day substance use type: does not use MEDS/ALLERGIES Home Medications and Allergies Home Medications Medication Instructions Recorded Confirmed Type Accu-Chek 1 each FS ACHS strip 11/26/18 12/22/20 Rx acetaminophen 1,000 mg PO Q6H PRN 12/12/19 12/22/20 History insulin syringe-needle U-100 1 mL #200 each 04/23/20 12/22/20 Rx 25 x 1" losartan 25 mg tablet 25 mg PO QDAY #60 tab 04/23/20 12/22/20 Rx hyoscyamine sulfate [Levsin/SL] 0.125 mg SUBLINGUAL QID PRN #20 tab 08/19/20 12/22/20 Rx insulin aspart U-100 100 unit/mL 15 unit SUBCUT TID #15 ml 10/19/20 12/22/20 Rx (3 mL) subcutaneous pen insulin glargine 100 unit/mL (3 25 unit SUBCUT QDAY #15 ml 10/19/20 12/22/20 Rx mL) subcutaneous pen carvedilol 3.125 mg PO BIDCC #60 tab 12/24/20 Rx levofloxacin 750 mg PO Q24H #2 tab 12/24/20 Rx Allergies Allergy/AdvReac Type Severity Reaction Status Date / Time No Known Drug Allergies Allergy Verified 12/22/20 01:09 Physical Examination Vital Signs Vital signs: Temp Pulse Resp BP Pulse Ox 98.0 F 97 H 24 H 136/76 96 12/23/20 08:00 12/23/20 16:00 12/23/20 08:00 12/23/20 03:19 12/23/20 16:00 General physical appearance General physical exam: well developed, no distress and no pain Eyes Eye exam: PERRL ENT ENT exam: normal pinna, normal nares and no congestion Head Head exam IM: Present atraumatic and normocephalic Neck Neck exam: no masses and no venous distension Cardiovascular Cardiovascular exam IM: Present normal rate and rhythm Respiratory Respiratory exam: other (Diminished air entry lung bases. ( Pneumonia on CXR )) Abdomen Abdomen: Present soft and non tender Integumentary Integumentary: Present no rash and other (H/O MRSA . Scattered clean dry demarcating scabbs / eschar. Dry pressure ulcer tip of LEFT 2 toe ( MONITOR for now )) Neurologic Neurologic: Present other (Non focal / Non lateralizing neurological assessment.) Musculoskeletal Musculoskeletal: Present other (RIGHT forefoot amputation. Pedal pulses palpated both Left foot and Right TMA site ) Psychiatric Psychiatric: Present other (NOT assessed. Patietn asleep ) Results Labs Result diagrams: 12/24/20 05:40 12/24/20 05:40 Labs: Abnormal lab results 12/23/20 12/23/20 Range/Units 06:12 06:13 WBC 12.7 H (4.5-11.0) K/mcL Neut % (Auto) 80.7 H (38.0-78.0) % Lymph % (Auto) 8.1 L (15.5-49.0) % Lymph # (Auto) 1.03 L (1.50-4.80) K/mcL [place] # (Auto) 1.27 H (0.10-0.90) K/mcL Absolute Neutrophils 10.24 H (1.80-8.00) K/mcL Carbon Dioxide 18 L (22-30) mmol/L Anion Gap 18.0 H (8.0-16.0) Creatinine 1.3 H (0.7-1.2) mg/dL Glucose 233 H (70-105) mg/dL Albumin 3.0 L (3.2-5.2) gm/dL Globulin 4.6 H (2.2-3.7) gm/dL Albumin/Globulin Ratio 0.7 L (1.0-2.3) Diabetes panel 12/23/20 Range/Units 06:12 Sodium 138 (133-145) mmol/L Potassium 3.8 (3.3-5.1) mmol/L Chloride 102 (96-108) mmol/L Carbon Dioxide 18 L (22-30) mmol/L BUN 21 (8-23) mg/dL Creatinine 1.3 H (0.7-1.2) mg/dL Glucose 233 H (70-105) mg/dL Calcium 9.2 (8.6-10.4) mg/dL AST 21 (<40) U/L ALT 11 (<40) U/L Alkaline Phosphatase 86 (39-117) U/L Total Protein 7.6 (5.9-8.4) gm/dL Albumin 3.0 L (3.2-5.2) gm/dL Calcium panel 12/23/20 Range/Units 06:12 Calcium 9.2 (8.6-10.4) mg/dL Albumin 3.0 L (3.2-5.2) gm/dL Pituitary panel 12/23/20 Range/Units 06:12 Sodium 138 (133-145) mmol/L Potassium 3.8 (3.3-5.1) mmol/L Chloride 102 (96-108) mmol/L Carbon Dioxide 18 L (22-30) mmol/L BUN 21 (8-23) mg/dL Creatinine 1.3 H (0.7-1.2) mg/dL Glucose 233 H (70-105) mg/dL Calcium 9.2 (8.6-10.4) mg/dL Adrenal panel 12/23/20 Range/Units 06:12 Sodium 138 (133-145) mmol/L Potassium 3.8 (3.3-5.1) mmol/L Chloride 102 (96-108) mmol/L Carbon Dioxide 18 L (22-30) mmol/L BUN 21 (8-23) mg/dL Creatinine 1.3 H (0.7-1.2) mg/dL Glucose 233 H (70-105) mg/dL Calcium 9.2 (8.6-10.4) mg/dL Total Bilirubin 0.8 (0.1-1.0) mg/dL AST 21 (<40) U/L ALT 11 (<40) U/L Alkaline Phosphatase 86 (39-117) U/L Total Protein 7.6 (5.9-8.4) gm/dL Albumin 3.0 L (3.2-5.2) gm/dL All other labs normal. A/P Narrative A/P Narrative: Assessment: Dry clean demarcating areas of scabs , skin necroses both antreior legs. HTN DM2 CKD3 Altered Mental Status. PNA Plan: Medical management per Hospitalist Physician. Local wound care as ordered Will monitor and follow patient. Time Spent With Patient Time: Total time spent is greater than 50% in coordination of care (as documented) at patient's floor/unit and/or counseling patient: Total time spent with greater than 50% in coordination of care (as documented) at patient's floor/unit and/or counseling patient:: Greater than 35 minutes
[2020-12-23] MEDS: SENNOSIDES 1 TABLET PO SCH (19:49)
[2020-12-23] MEDS: ACETAMINOPHEN 325 MG TABLET PO PRN (23:24)
[2020-12-24] MEDS: 0.9 % SODIUM CHLORIDE 10 ML SYRINGE IV SCH ×6 (04:30→20:44)
[2020-12-24 06:53] LABS: Basophils # (Auto) 0.06 K/mcL (0.00-0.30); Basophils % (Auto) 0.6 % (0.0-2.0); Eosinophils # (Auto) 0.35 K/mcL (0.00-0.70); Eosinophils % (Auto) 3.3 % (0.0-7.0); Hematocrit 43.7 % (40.1-51.0); Hemoglobin 14.3 g/dL (13.7-17.5); Lymphocytes # (Auto) 0.94 K/mcL (1.50-4.80); Lymphocytes % (Auto) 8.8 % (15.5-49.0); Mean Cell Volume 93.8 fL (80.0-100.0); Mean Corpuscular HGB Conc 32.7 g/dL (31.0-36.0); Mean Platelet Volume 9.7 fL (7.4-10.4); Monocytes # (Auto) 1.04 K/mcL (0.10-0.90); Monocytes % (Auto) 9.7 % (1.0-12.0); Neutrophils % (Auto) 77.6 % (38.0-78.0); Platelet Count 294 K/mcL (140-440); RBC 4.66 M/mcL (4.63-6.08); Red Cell Distribution Width 12.7 % (11.5-14.5); WBC 10.7 K/mcL (4.5-11.0)
[2020-12-24 07:18] LABS: ALT/SGPT 12 U/L (<40); AST/SGOT 17 U/L (<40); Albumin/Globulin Ratio 0.7 (1.0-2.3); Alkaline Phosphatase 89 U/L (39-117); Bilirubin,Direct 0.2 mg/dL (<0.3); Bilirubin,Total 0.5 mg/dL (0.1-1.0); Blood Urea Nitrogen 21 mg/dL (8-23); Carbon Dioxide 19 mmol/L (22-30); Chloride 106 mmol/L (96-108); Globulin 4.3 gm/dL (2.2-3.7); Glomerular Filtration Rate 55; Glucose 138 mg/dL (70-105); Lactate Dehydrogenase 218 U/L (135-225); Phosphorous 3.3 mg/dL (2.5-4.5); Triglycerides 120 mg/dL (<150); Uric Acid 3.6 mg/dL (2.5-8.0)
--- NOTE | 2020-12-24 07:18 | Internal Med Progress Note ---
SUBJECTIVE Subjective Patient information: Note initiated : 12/24/20 at 7:16 am Service Date, if different from initiated Date: [] Patient: Wolf Miles 85 y/o M admitted on 12/22/20 for Dementia. Chief Complaint: [] Interval history: History of present illness: Mr. Miles is a 85 year old M history of congestive heart failure, type 2 diabetes mellitus, clinically disease stage III, presenting with altered mental status. History limited by l ack of caregiver at the bedside as well as clinical situations. Unknown time of onset or durations of symptoms. Patient denies any confusions. Patient denies any shortness of breath. Patient is complaining of nonproductive cough. Patient denies any wheezing. Patient denies any fever chills or diaphoresis. Vital signs significant for mild tachycardia heart rate in the 90s and tachypnea with a breathing up to mid 20s. Labs significant for leukocytosis with WBC 14.4. Serum lactic acid 1.9. Serum creatinine level 1.7 at baseline. Serum glucose elevated 419. Serum BNP is 3723. Chest x-ray significant for bibasilar infiltrates. 12/23: s/p 16mg of Ativan given overnight, currently well sedated and sleeping. Low grade fever with Tmax 37.5 overnight. Blood culture no growth to date. S ubjective not obtained due to clinical situations. 12/24 Patient awake alert and sitting in chair eating breakfast. Currently on room air. Leukocytosis improved. Suspect more of a dementia related agitation as opposed alcohol but still could be contributing. Creatinine improved. Constipation. Review of Systems: denies headache/fever/chills/nausea/vomiting/chest or abdominal pain/cough/dyspnea/diarrhea. Otherwise see above. Constitutional Vitals: Vital Signs Temp Pulse Resp BP Pulse Ox 96.9 F L 108 H 22 173/94 93 12/24/20 06:49 12/24/20 06:49 12/24/20 06:49 12/24/20 06:49 12/24/20 06:49 Period Temp Pulse Resp BP Sys/Porter Pulse Ox Last 24 Hr 96.8 F-98.0 F 78-109 20-24 135-214/76-101 92-99 Intake and Output 12/23/20 12/24/20 12/24/20 21:59 05:59 13:59 Intake Total 1125 Output Total 450 375 Balance -450 750 Weight 90.718 kg Intake & Output: Intake & Output 12/23/20 12/24/20 12/24/20 21:59 05:59 13:59 Intake Total 1125 Output Total 450 375 Balance -450 750 Weight 90.718 kg Intake: IV 1025 Potassium Chloride 20 Meq 1025 Magnesium Sulfate 16.24 Meq Vitamin B1 100 mg Infuvite Adult 10 ml In Sodium Chloride 0.9% 1,000 ml @ 100 mls/hr IV DAILY [facility] Rx#:[id number] Oral 100 Output: Urine Catheter Amount 375 Void Amount 450 Other: Urine Color Blood Tinged Uretheral ([place]ra[place]) Dark Yellow Exam: General: Alert, Awake, No acute Distress Eyes/N/T: EOMI, Head/Neck: neck supple, CV: irreg irreg, No murmurs, Pulm: Clear b/l, no wheezing/rhonchi/rales Abd: soft, nontender, +BS x4 Ext: no clubbing/cyanosis/edema Neuro: Alert, no focal deficits, moves all extremities, Skin: warm/dry OBJ DATA Labs CBC & Chem 7: 12/24/20 05:40 12/24/20 05:40 Labs: Abnormal Lab Results 12/24/20 12/23/20 12/23/20 05:40 06:13 06:12 WBC 12.7 H RBC Neut % (Auto) 80.7 H Lymph % (Auto) 8.8 L 8.1 L Lymph # (Auto) 0.94 L 1.03 L [place] # (Auto) 1.04 H 1.27 H Absolute Neutrophils 8.35 H 10.24 H ESR PT INR ABG Methemoglobin VBG pCO2 VBG pO2 VBG HCO3 VBG Total CO2 VBG O2 Saturation VBG Base Excess Carboxyhemoglobin Carbon Dioxide 18 L Anion Gap 18.0 H BUN Creatinine 1.3 H Glucose 233 H Hemoglobin A1c C-Reactive Protein NT-Pro-B Natriuret Pep Albumin 3.0 L Globulin 4.6 H Albumin/Globulin Ratio 0.7 L Beta-Hydroxybutyrate Procalcitonin 12/22/20 12/22/20 12/22/20 15:19 01:51 01:51 WBC 14.4 H RBC 4.50 L Neut % (Auto) 90.7 H Lymph % (Auto) 2.4 L Lymph # (Auto) 0.35 L [place] # (Auto) 0.94 H Absolute Neutrophils 13.04 H ESR 49 H PT 16.7 H INR 1.3 H ABG Methemoglobin VBG pCO2 VBG pO2 VBG HCO3 VBG Total CO2 VBG O2 Saturation VBG Base Excess Carboxyhemoglobin Carbon Dioxide Anion Gap BUN Creatinine Glucose Hemoglobin A1c 11.4 H C-Reactive Protein NT-Pro-B Natriuret Pep Albumin Globulin Albumin/Globulin Ratio Beta-Hydroxybutyrate Procalcitonin 12/22/20 12/22/20 12/22/20 01:50 01:49 01:49 WBC RBC Neut % (Auto) Lymph % (Auto) Lymph # (Auto) [place] # (Auto) Absolute Neutrophils ESR PT INR ABG Methemoglobin 0.3 L VBG pCO2 35.1 L VBG pO2 77.2 H VBG HCO3 20.7 L VBG Total CO2 21.8 L VBG O2 Saturation 91.7 H VBG Base Excess -4 L Carboxyhemoglobin 3.6 H Carbon Dioxide 18 L Anion Gap 17.0 H BUN 29 H Creatinine 1.7 H Glucose 419 H Hemoglobin A1c C-Reactive Protein 6.90 H NT-Pro-B Natriuret Pep 3723.0 H Albumin Globulin Albumin/Globulin Ratio 0.9 L Beta-Hydroxybutyrate 0.72 H Procalcitonin 12/22/20 01:46 WBC RBC Neut % (Auto) Lymph % (Auto) Lymph # (Auto) [place] # (Auto) Absolute Neutrophils ESR PT INR ABG Methemoglobin VBG pCO2 VBG pO2 VBG HCO3 VBG Total CO2 VBG O2 Saturation VBG Base Excess Carboxyhemoglobin Carbon Dioxide Anion Gap BUN Creatinine Glucose Hemoglobin A1c C-Reactive Protein NT-Pro-B Natriuret Pep Albumin Globulin Albumin/Globulin Ratio Beta-Hydroxybutyrate Procalcitonin 0.16 H Meds: Medications Acetaminophen (Acetaminophen 325 Mg Tablet) 650 mg PO Q6HP PRN; Protocol PRN Reason: Per Pain Protocol/Fever > 101 Last Admin: 12/23/20 23:24 Dose: 650 mg Documented by: Albuterol/Ipratropium (Ipratropium/Albuterol 3 Ml Ampul.Neb) 3 ml NEB Q4HRT PRN PRN Reason: Wheezing Carvedilol (Carvedilol 3.125 Mg Tablet) 3.125 mg PO BIDCC BECK Last Admin: 12/23/20 16:25 Dose: Not Given Documented by: Ceftriaxone Sodium (Ceftriaxone 1 Gm Vial) 1 gm IV Q24H [facility] Last Admin: 12/23/20 13:36 Dose: 1 gm Documented by: Clonidine HCl (Clonidine Hcl 0.1 Mg Tablet) 0.1 mg PO Q4HP PRN PRN Reason: ALC Dextrose (Dextrose 50% 50 Ml Vial) 0 ml IV UD PRN PRN Reason: Hypoglycemia Diagnostic Test (Pha) (Accu-Chek 1 Each Strip) 1 each FS ACHS [facility] Last Admin: 12/23/20 19:47 Dose: 1 each Documented by: Docusate Sodium (Docusate Sodium 100 Mg Capsule) 100 mg PO BID [facility] Last Admin: 12/23/20 19:49 Dose: Not Given Documented by: Folic Acid (Folic Acid 1 Mg Tablet) 1 mg PO DAILY [facility] Last Admin: 12/23/20 09:49 Dose: Not Given Documented by: Furosemide (Furosemide 20 Mg Tablet) 20 mg PO BIDD [facility] Last Admin: 12/23/20 16:25 Dose: Not Given Documented by: Glucose (Dextrose 31 Gm Oral.Susp) 15 gm PO PRN PRN PRN Reason: Hypoglycemia Guaifenesin (Guaifenesin/Dextromethorphan Oral Kay) 10 ml PO Q4HP PRN PRN Reason: Cough Haloperidol Lactate (Haloperidol Lactate 5 Mg/Ml Vial) 3 - 5 mg IV Q4HP PRN PRN Reason: ANXIETY/SEDATION Heparin Sodium (Porcine) (Heparin 5,000 Unit/Ml Vial) 5,000 unit SQ Q12 [facility] Last Admin: 12/23/20 19:52 Dose: 5,000 unit Documented by: Hydralazine HCl (Hydralazine 20 Mg/Ml Vial) 10 mg IV Q4HP PRN PRN Reason: Hypertension Last Admin: 12/23/20 23:17 Dose: 10 mg Documented by: Hyoscyamine (Hyoscyamine Sulfate 0.125 Mg Tablet) 0.125 mg PO QIDP PRN PRN Reason: dyspepsia Azithromycin 500 mg/ Dextrose 250 mls @ 250 mls/hr IV Q24H [facility]; Protocol Stop: 12/25/20 10:59 Last Infusion: 12/23/20 13:38 Dose: Infused Documented by: Thiamine HCl 100 mg/ Sodium (Chloride) 51 mls @ 50 mls/hr IV DAILY [facility] Last Infusion: 12/23/20 13:38 Dose: Infused Documented by: Acetaminophen (Ofirmev) 650 mg in 65 mls @ 130 mls/hr IV Q6HP PRN; Protocol PRN Reason: PAIN/FEVER > 101 Potassium Chloride 20 meq/Magnesium Sulfate 16.24 meq/Thiamine HCl 100 mg/Multivitamins/Minerals 10 ml/Sodium Chloride 1,025 mls @ 100 mls/hr IV DAILY [facility] Stop: 12/24/20 19:14 Last Infusion: 12/23/20 23:52 Dose: Infused Documented by: Insulin Glargine (Insulin Glargine, Human 1 Unit/0.01 Ml) 25 unit SQ QDAY [facility] Last Admin: 12/23/20 12:46 Dose: 25 units Documented by: Insulin Human Lispro (Insulin Lispro 1 Unit/0.01 Ml Unit) 15 unit SQ TIDAC [facility] Last Admin: 12/23/20 18:02 Dose: Not Given Documented by: Insulin Human Lispro (Insulin Lispro 1 Unit/0.01 Ml Unit) 0 unit SQ ACHS [facility]; Protocol Last Admin: 12/23/20 19:47 Dose: Not Given Documented by: Iron Carb/Multivit/[place]/Folic Acid (Multivit,Ther Iron,Ca,Fa & Min 1 Tablet) 1 tab PO DAILY [facility] Last Admin: 12/23/20 09:49 Dose: Not Given Documented by: Lorazepam (Lorazepam 2 Mg/Ml Vial) 0.5 mg IV Q4-6HP PRN PRN Reason: ANXIETY/SEDATION Lorazepam (Lorazepam 2 Mg/Ml Vial) 0 mg IV Q4HP PRN; Protocol PRN Reason: Alcohol Withdrawal Last Admin: 12/23/20 22:27 Dose: 2 mg Documented by: Losartan Potassium (Losartan 25 Mg Tablet) 25 mg PO QDAY [facility] Last Admin: 12/23/20 09:49 Dose: Not Given Documented by: Mupirocin (Mupirocin Oint 2% 22gm) 1 dose NARES BID [facility] Last Admin: 12/23/20 19:50 Dose: 1 dose Documented by: Ondansetron HCl (Ondansetron 4 Mg/2 Ml Vial) 4 mg IV Q6HP PRN PRN Reason: Nausea And Vomiting Senna (Sennosides 1 Tablet) 2 tab PO HS [facility] Last Admin: 12/23/20 19:49 Dose: Not Given Documented by: Sodium Chloride (0.9 % Sodium Chloride 10 Ml Syringe) 10 ml IV Q8 [facility] Last Admin: 12/24/20 04:30 Dose: Not Given Documented by: Sodium Chloride (0.9 % Sodium Chloride 10 Ml Syringe) 10 ml IV Q8 [facility] Last Admin: 12/24/20 05:20 Dose: 10 ml Documented by: Zolpidem Tartrate (Zolpidem 5 Mg Tablet) 5 mg PO HSP PRN PRN Reason: Insomnia ABG Interpretation ABG results: 12/22/20 01:49 ABG Methemoglobin 0.3 L VBG pH 7.39 VBG pCO2 35.1 L VBG pO2 77.2 H VBG HCO3 20.7 L VBG Total CO2 21.8 L VBG O2 Saturation 91.7 H VBG Base Excess -4 L A/P Narrative A/P Narrative: Assessment and plan: #CAP w/associated delirium & clinical sepsis: improving -Covid negative, leukocytosis resolved, afebrile o/n -Rocephin/Azithro #Sepsis: 2/2 above #Acute hypoxic respiratory failure: 2/2 above -now on RA #Encephalopathy: 2/2 above + underlying Dementia +/- ?ETOH w/d: -CT brain with atrophy and old infarct #Dementia: #etoh use: ?amount #h/o CVA: #DM: A1c 11.4 -Lantus and SSI #KALANI on CKD III 2/2 DM: #h/o CHF: home carvedilol/Lasix/Losartan DVT prophylaxis: Heparin CODE STATUS: DNR Time Spent With Patient Time: Total time spent is greater than 50% in coordination of care (as documented) at patient's floor/unit and/or counseling patient: QUALITY VTE Deep Vein Thrombosis/Pulmonary Embolism Present on Admission: No
[2020-12-24] MEDS: CARVEDILOL 3.125 MG TABLET PO SCH ×2 (08:39→17:27)
[2020-12-24] MEDS: FUROSEMIDE 20 MG TABLET PO SCH ×2 (08:39→16:27)
[2020-12-24] MEDS: ACETAMINOPHEN 325 MG TABLET PO PRN ×2 (08:39→16:27)
[2020-12-24] MEDS: MULTIVIT,THER IRON,CA,FA & MIN 1 TABLET PO SCH (08:48)
[2020-12-24] MEDS: FOLIC ACID 1 MG TABLET PO SCH (08:48)
[2020-12-24] MEDS: LOSARTAN 25 MG TABLET PO SCH (08:48)
[2020-12-24] MEDS: DOCUSATE SODIUM 100 MG CAPSULE PO SCH ×2 (08:49→19:47)
[2020-12-24] MEDS ORDERED: METOPROLOL TARTRATE 5 MG/5 ML VIAL IV PRN (09:13)
[2020-12-24] MEDS: INSULIN LISPRO 1 UNIT/0.01 ML UNIT SQ SCH ×7 (10:07→19:57)
[2020-12-24] MEDS: cefTRIAXone 1 GM VIAL IV SCH (10:07)
[2020-12-24] MEDS: HEPARIN 5,000 UNIT/ML VIAL SQ SCH ×2 (10:08→19:56)
[2020-12-24] MEDS: MUPIROCIN OINT 2% 22GM NARES SCH ×2 (10:08→19:56)
[2020-12-24] MEDS: THIAMINE 100 MG in 0.9 % SODIUM CHLORIDE 50 ML IV SCH (10:09)
--- NOTE | 2020-12-24 11:05 | Discharge Summary ---
Discharge Provider Provider Patient information: Note initiated : 12/24/20 at 11:03 am Service Date, if different from initiated Date: [] Patient: Wolf Miles 85 y/o M admitted on 12/22/20 for Dementia. Chief Complaint: [] Date of admission: 12/22/20 14:43 Primary care physician: Joey Brooks PA-C Consults: 12/22/20 12:24 Consult to Physician [CONS] Stat Comment: Consulting Provider: Nikko Rivers Reason For Exam: Physician to Consult 12/23/20 10:27 Consult to Physician [CONS] Routine Comment: Consulting Provider: Braden Holley Reason For Exam: Physician to Consult 12/23/20 14:27 Consult to Physician [CONS] Routine Comment: snf referral Consulting Provider: [facility] Reason For Exam: Physician to Consult Discharge Meds Discharge Medications Home Medications Accu-Chek 1 each FS ACHS strip 11/26/18 [Rx Confirmed 12/22/20 Last Taken Unknown] acetaminophen 1,000 mg PO Q6H PRN 12/12/19 [History Confirmed 12/22/20 Last Taken Unknown] insulin syringe-needle U-100 1 mL 25 x 1" #200 each 04/23/20 [Rx Confirmed 12/22/20 Last Taken Unknown] losartan 25 mg tablet 25 mg PO QDAY #60 tab 04/23/20 [Rx Confirmed 12/22/20 Last Taken Unknown] hyoscyamine sulfate [Levsin/SL] 0.125 mg SUBLINGUAL QID PRN #20 tab 08/19/20 [Rx Confirmed 12/22/20 Last Taken Unknown] insulin aspart U-100 100 unit/mL (3 mL) subcutaneous pen 15 unit SUBCUT TID #15 ml 10/19/20 [Rx Confirmed 12/22/20 Last Taken Unknown] insulin glargine 100 unit/mL (3 mL) subcutaneous pen 25 unit SUBCUT QDAY #15 ml 10/19/20 [Rx Confirmed 12/22/20 Last Taken Unknown] carvedilol 3.125 mg PO BIDCC #60 tab 12/24/20 [Rx Last Taken Unknown] levofloxacin 750 mg PO Q24H #2 tab 12/24/20 [Rx Last Taken Unknown] COURSE Hospital Course Hospital course: Interval history: History of present illness: Mr. Miles is a 85 year old M history of congestive heart failure, type 2 diabetes mellitus, clinically disease stage III, presenting with altered mental status. History limited by lack of caregiver at the bedside as well as clinical situations. Unknown time of onset or durations of symptoms. Patient denies any confusions. Patient denies any shortness of breath. Patient is complaining of nonproductive cough. Patient denies any wheezing. Patient denies any fever chills or diaphoresis. Vital signs significant for mild tachycardia heart rate in the 90s and tachypnea with a breathing up to mid 20s. Labs significant for leukocytosis with WBC 14.4. Serum lactic acid 1.9. Serum creatinine level 1.7 at baseline. Serum glucose elevated 419. Serum BNP is 3723. Chest x-ray significant for bibasilar infiltrates. 12/23: s/p 16mg of Ativan given overnight, currently well sedated and sleeping. Low grade fever with Tmax 37.5 overnight. Blood culture no growth to date. Subjective not obtained due to clinical situations. 12/24 Patient awake alert and sitting in chair eating breakfast. Currently on room air. Leukocytosis improved. Suspect more of a dementia related agitation as opposed alcohol but still could be contributing. Creatinine improved. Constipation. Assessment and plan: #CAP w/associated delirium & clinical sepsis: improving -Covid negative #Sepsis: 2/2 above #Acute hypoxic respiratory failure: 2/2 above #Encephalopathy: 2/2 above + underlying Dementia +/- ?ETOH w/d: -CT brain with atrophy and old infarct #Dementia: #etoh use: ?amount #h/o CVA: #h/o AFib: not on anticoagulation, suspect age/fall risk/bleeding tendency related. now on BB #DM: A1c 11.4 #KALANI on CKD III 2/2 DM: #h/o CHF: home carvedilol/Losartan Discharge diagnosis: Pneumonia encephalopathy hypoxia Secondary discharge diagnosis: Dementia history of stroke A. fib diabetes acute on chronic kidney disease history of CHF Time Spent with Patient Time attestation: Total time spent providing and/or coordinating discharge services: Time spent: Greater than 30 minutes EXAM Constitutional Vitals: Temp Pulse Resp BP Pulse Ox 96.9 F L 108 H 22 173/94 93 12/24/20 06:49 12/24/20 06:49 12/24/20 06:49 12/24/20 06:49 12/24/20 06:49 Discharge Data Data Completed and Pending Labs on day of discharge: Labs from last 24 hours 12/24/20 12/24/20 05:40 05:40 WBC 10.7 RBC 4.66 Hgb 14.3 Hct 43.7 MCV 93.8 MCH 30.7 MCHC 32.7 RDW 12.7 Plt Count 294 MPV 9.7 Neut % (Auto) 77.6 Lymph % (Auto) 8.8 L Andrews % (Auto) 9.7 Eos % (Auto) 3.3 Baso % (Auto) 0.6 Lymph # (Auto) 0.94 L Andrews # (Auto) 1.04 H Eos # (Auto) 0.35 Baso # (Auto) 0.06 Absolute Neutrophils 8.35 H Sodium 140 Potassium 3.9 Chloride 106 Carbon Dioxide 19 L Anion Gap 15.0 BUN 21 Creatinine 1.2 GFR Calculation 55 Glucose 138 H Uric Acid 3.6 Calcium 9.0 Phosphorus 3.3 Magnesium 2.4 Total Bilirubin 0.5 Direct Bilirubin 0.2 GGT 36 AST 17 ALT 12 Alkaline Phosphatase 89 Lactate Dehydrogenase 218 Total Protein 7.3 Albumin 3.0 L Globulin 4.3 H Albumin/Globulin Ratio 0.7 L Triglycerides 120 Preliminary micro results at discharge 12/22/20 01:34 Blood Culture - Preliminary Blood 12/22/20 01:28 Blood Culture - Preliminary Blood Discharge Plan Patient/Caregiver Discharge Instructions Activity: increase activity as tolerated Diet: Consistent Carbohydrate Prescriptions: New carvedilol 3.125 mg Tablet 3.125 mg PO BIDCC Qty: 60 RF: 0 levofloxacin 750 mg tablet 750 mg PO Q24H Qty: 2 RF: 0 Continued insulin glargine 100 unit/mL (3 mL) insulin pen 25 unit subcut QDAY Qty: 15 RF: 0 insulin aspart U-100 100 unit/mL (3 mL) insulin pen 15 unit subcut TID Qty: 15 RF: 0 losartan 25 mg tablet 25 mg PO QDAY Qty: 60 RF: 1 (DME) BD Insulin Syringe 1 mL 25 x 1" syringe See Rx Instructions .ROUTE .MEDSUPPLY Qty: 200 RF: 3 Accu-Chek 1 EACH strip 1 each FS ACHS RF: 0 acetaminophen 500 mg Capsule 1,000 mg PO Q6H PRN (Reason: Pain) RF: 0 hyoscyamine sulfate [Levsin/SL] 0.125 mg tablet, sublingual 0.125 mg sublingual QID PRN (Reason: dyspepsia) Qty: 20 RF: 0 Follow Up Plan Follow up with: Joey Brooks PA-C [Primary Care Provider] - Patient Disposition: Xfer SNF Prognosis: Undetermined Rehab Potential: Fair I certify that the patient requires SNF services: Yes Overall status at discharge: patient is progressing back to baseline QUALITY VTE Deep Vein Thrombosis/Pulmonary Embolism Present on Admission: No
[2020-12-24] MEDS ORDERED: POLYETHYLENE GLYCOL 3350 17 GM PACKET PO PRN (12:21)
[2020-12-24] MEDS: AZITHROMYCIN 500 MG in DEXTROSE 5% IN WATER 250 ML IV SCH (12:26)
[2020-12-24] MEDS: INSULIN GLARGINE, HUMAN 1 UNIT/0.01 ML SQ SCH (12:33)
[2020-12-24] MEDS: POTASSIUM CHLORIDE 20 MEQ, MAGNESIUM SULFATE 16.24 MEQ, THIAMINE 100 MG, MVI, ADULT NO.... IV SCH (14:11)
[2020-12-24] MEDS: SENNOSIDES 1 TABLET PO SCH (19:48)
[2020-12-25] MEDS: ACETAMINOPHEN 325 MG TABLET PO PRN ×3 (02:37→22:44)
[2020-12-25] MEDS: ACETAMINOPHEN 650 MG/65 ML BAG IV PRN (04:05)
[2020-12-25] MEDS: 0.9 % SODIUM CHLORIDE 10 ML SYRINGE IV SCH ×6 (04:58→22:38)
[2020-12-25] MEDS: INSULIN LISPRO 1 UNIT/0.01 ML UNIT SQ SCH ×7 (07:29→21:04)
--- NOTE | 2020-12-25 07:33 | Internal Med Progress Note ---
SUBJECTIVE Subjective Patient information: Note initiated : 12/25/20 at 7:27 am Service Date, if different from initiated Date: [] Patient: Wolf Miles 85 y/o M admitted on 12/22/20 for Dementia. Chief Complaint: [] Interval history: History of present illness: Mr. Miles is a 85 year old M history of congestive heart failure, type 2 diabetes mellitus, clinically disease stage III, presenting with altered mental status. History limited by l ack of caregiver at the bedside as well as clinical situations. Unknown time of onset or durations of symptoms. Patient denies any confusions. Patient denies any shortness of breath. Patient is complaining of nonproductive cough. Patient denies any wheezing. Patient denies any fever chills or diaphoresis. Vital signs significant for mild tachycardia heart rate in the 90s and tachypnea with a breathing up to mid 20s. Labs significant for leukocytosis with WBC 14.4. Serum lactic acid 1.9. Serum creatinine level 1.7 at baseline. Serum glucose elevated 419. Serum BNP is 3723. Chest x-ray significant for bibasilar infiltrates. 12/23: s/p 16mg of Ativan given overnight, currently well sedated and sleeping. Low grade fever with Tmax 37.5 overnight. Blood culture no growth to date. S ubjective not obtained due to clinical situations. 12/24 Patient awake alert and sitting in chair eating breakfast. Currently on room air. Leukocytosis improved. Suspect more of a dementia related agitation as opposed alcohol but still could be contributing. Creatinine improved. Constipation. 12/25 Patient sitting up in chair eating breakfast. No new complaints. Feels he slept all right. No overnight events or new complaints. Review of Systems: denies headache/fever/chills/nausea/vomiting/chest or abdominal pain/cough/dyspnea/diarrhea. Otherwise see above. Constitutional Vitals: Vital Signs Temp Pulse Resp BP Pulse Ox 97.5 F 93 H 18 152/89 97 12/25/20 02:48 12/25/20 02:48 12/25/20 06:44 12/25/20 02:48 12/25/20 02:48 Period Temp Pulse Resp BP Sys/Porter Pulse Ox Last 24 Hr 97.2 F-97.9 F 63-99 18-22 145-163/80-93 93-97 Intake and Output 12/24/20 12/25/20 12/25/20 21:59 05:59 13:59 Intake Total 1490 Output Total 1 2 Balance -1 1488 Weight 90.718 kg Intake & Output: Intake & Output 12/24/20 12/25/20 12/25/20 21:59 05:59 13:59 Intake Total 1490 Output Total 1 2 Balance -1 1488 Weight 90.718 kg Intake: IV 1090 Potassium Chloride 20 Meq 1025 Magnesium Sulfate 16.24 Meq Vitamin B1 100 mg Infuvite Adult 10 ml In Sodium Chloride 0.9% 1,000 ml @ 100 mls/hr IV DAILY BECK Rx#:[id number] Oral 400 Output: # of times incontinent of urine 1 2 Other: Urine Appearance Clear Urine Color Pale Straw Urine Odor Normal Stool Size Small Stool Color Brown Stool Consistency Loose # of times incontinent of 1 Bowels Exam: General: Alert, Awake, No acute Distress Eyes/N/T: EOMI, Head/Neck: neck supple, CV: irreg irreg, No murmurs, Pulm: Clear b/l, no wheezing/rhonchi/rales Abd: soft, nontender, +BS x4 Ext: no clubbing/cyanosis/edema Neuro: Alert, no focal deficits, moves all extremities, Skin: warm/dry OBJ DATA Labs CBC & Chem 7: 12/24/20 05:40 12/24/20 05:40 Labs: Abnormal Lab Results 12/24/20 12/24/20 12/23/20 05:40 05:40 06:13 WBC 12.7 H Neut % (Auto) 80.7 H Lymph % (Auto) 8.8 L 8.1 L Lymph # (Auto) 0.94 L 1.03 L Isabella # (Auto) 1.04 H 1.27 H Absolute Neutrophils 8.35 H 10.24 H ESR Carbon Dioxide 19 L Anion Gap Creatinine Glucose 138 H Hemoglobin A1c Albumin 3.0 L Globulin 4.3 H Albumin/Globulin Ratio 0.7 L 12/23/20 12/22/20 12/22/20 06:12 15:19 01:51 WBC Neut % (Auto) Lymph % (Auto) Lymph # (Auto) Isabella # (Auto) Absolute Neutrophils ESR 49 H Carbon Dioxide 18 L Anion Gap 18.0 H Creatinine 1.3 H Glucose 233 H Hemoglobin A1c 11.4 H Albumin 3.0 L Globulin 4.6 H Albumin/Globulin Ratio 0.7 L Meds: Medications Acetaminophen (Acetaminophen 325 Mg Tablet) 650 mg PO Q6HP PRN; Protocol PRN Reason: Per Pain Protocol/Fever > 101 Last Admin: 12/25/20 02:37 Dose: 650 mg Documented by: Albuterol/Ipratropium (Ipratropium/Albuterol 3 Ml Ampul.Neb) 3 ml NEB Q4HRT PRN PRN Reason: Wheezing Carvedilol (Carvedilol 3.125 Mg Tablet) 3.125 mg PO BIDCC [facility] Last Admin: 12/24/20 17:27 Dose: 3.125 mg Documented by: Ceftriaxone Sodium (Ceftriaxone 1 Gm Vial) 1 gm IV Q24H [facility] Last Admin: 12/24/20 10:07 Dose: 1 gm Documented by: Clonidine HCl (Clonidine Hcl 0.1 Mg Tablet) 0.1 mg PO Q4HP PRN PRN Reason: ALC Dextrose (Dextrose 50% 50 Ml Vial) 0 ml IV UD PRN PRN Reason: Hypoglycemia Diagnostic Test (Pha) (Accu-Chek 1 Each Strip) 1 each FS ACHS [facility] Last Admin: 12/24/20 19:56 Dose: 1 each Documented by: Docusate Sodium (Docusate Sodium 100 Mg Capsule) 100 mg PO BID [facility] Last Admin: 12/24/20 19:47 Dose: Not Given Documented by: Folic Acid (Folic Acid 1 Mg Tablet) 1 mg PO DAILY [facility] Last Admin: 12/24/20 08:48 Dose: 1 mg Documented by: Furosemide (Furosemide 20 Mg Tablet) 20 mg PO BIDD [facility] Last Admin: 12/24/20 16:27 Dose: 20 mg Documented by: Glucose (Dextrose 31 Gm Oral.Susp) 15 gm PO PRN PRN PRN Reason: Hypoglycemia Guaifenesin (Guaifenesin/Dextromethorphan Oral Kay) 10 ml PO Q4HP PRN PRN Reason: Cough Haloperidol Lactate (Haloperidol Lactate 5 Mg/Ml Vial) 3 - 5 mg IV Q4HP PRN PRN Reason: ANXIETY/SEDATION Heparin Sodium (Porcine) (Heparin 5,000 Unit/Ml Vial) 5,000 unit SQ Q12 [facility] Last Admin: 12/24/20 19:56 Dose: 5,000 unit Documented by: Hydralazine HCl (Hydralazine 20 Mg/Ml Vial) 10 mg IV Q4HP PRN PRN Reason: Hypertension Last Admin: 12/23/20 23:17 Dose: 10 mg Documented by: Hyoscyamine (Hyoscyamine Sulfate 0.125 Mg Tablet) 0.125 mg PO QIDP PRN PRN Reason: dyspepsia Azithromycin 500 mg/ Dextrose 250 mls @ 250 mls/hr IV Q24H [facility]; Protocol Stop: 12/25/20 10:59 Last Infusion: 12/24/20 13:45 Dose: Infused Documented by: Thiamine HCl 100 mg/ Sodium (Chloride) 51 mls @ 50 mls/hr IV DAILY [facility] Last Infusion: 12/24/20 12:21 Dose: Infused Documented by: Acetaminophen (Ofirmev) 650 mg in 65 mls @ 130 mls/hr IV Q6HP PRN; Protocol PRN Reason: PAIN/FEVER > 101 Last Infusion: 12/25/20 04:51 Dose: Infused Documented by: Insulin Glargine (Insulin Glargine, Human 1 Unit/0.01 Ml) 25 unit SQ QDAY [facility] Last Admin: 12/24/20 12:33 Dose: 25 units Documented by: Insulin Human Lispro (Insulin Lispro 1 Unit/0.01 Ml Unit) 15 unit SQ TIDAC [facility] Last Admin: 12/24/20 17:27 Dose: 15 units Documented by: Insulin Human Lispro (Insulin Lispro 1 Unit/0.01 Ml Unit) 0 unit SQ ACHS [facility]; Protocol Last Admin: 12/24/20 19:57 Dose: Not Given Documented by: Iron Carb/Multivit/[place]/Folic Acid (Multivit,Ther Iron,Ca,Fa & Min 1 Tablet) 1 tab PO DAILY [facility] Last Admin: 12/24/20 08:48 Dose: 1 tab Documented by: Lorazepam (Lorazepam 2 Mg/Ml Vial) 0.5 mg IV Q4-6HP PRN PRN Reason: ANXIETY/SEDATION Losartan Potassium (Losartan 25 Mg Tablet) 25 mg PO QDAY [facility] Last Admin: 12/24/20 08:48 Dose: 25 mg Documented by: Metoprolol Tartrate (Metoprolol Tartrate 5 Mg/5 Ml Vial) 5 mg IV Q2HP PRN PRN Reason: Tachyarrhythmias HR>110 Mupirocin (Mupirocin Oint 2% 22gm) 1 dose NARES BID [facility] Last Admin: 12/24/20 19:56 Dose: 1 dose Documented by: Ondansetron HCl (Ondansetron 4 Mg/2 Ml Vial) 4 mg IV Q6HP PRN PRN Reason: Nausea And Vomiting Polyethylene Glycol (Polyethylene Glycol 3350 17 Gm Packet) 17 gm PO DAILYP PRN PRN Reason: Constipation Last Admin: 12/24/20 13:16 Dose: 17 gm Documented by: Senna (Sennosides 1 Tablet) 2 tab PO HS [facility] Last Admin: 12/24/20 19:48 Dose: Not Given Documented by: Sodium Chloride (0.9 % Sodium Chloride 10 Ml Syringe) 10 ml IV Q8 [facility] Last Admin: 12/25/20 04:58 Dose: Not Given Documented by: Sodium Chloride (0.9 % Sodium Chloride 10 Ml Syringe) 10 ml IV Q8 [facility] Last Admin: 12/25/20 04:59 Dose: Not Given Documented by: Zolpidem Tartrate (Zolpidem 5 Mg Tablet) 5 mg PO HSP PRN PRN Reason: Insomnia ABG Interpretation ABG results: 12/22/20 01:49 ABG Methemoglobin 0.3 L VBG pH 7.39 VBG pCO2 35.1 L VBG pO2 77.2 H VBG HCO3 20.7 L VBG Total CO2 21.8 L VBG O2 Saturation 91.7 H VBG Base Excess -4 L A/P Narrative A/P Narrative: Assessment and plan: #CAP w/associated delirium & clinical sepsis: improving -Covid negative, leukocytosis resolved, afebrile -Rocephin/Azithro #Sepsis: 2/2 above #Acute hypoxic respiratory failure: 2/2 above -now on RA #Encephalopathy: 2/2 above + underlying Dementia +/- ?ETOH w/d: -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 now on BB #DM: A1c 11.4 -Lantus and SSI #KALANI on CKD III 2/2 DM: #h/o CHF(EF 55%): home carvedilol(increased)/Losartan DVT prophylaxis: Heparin CODE STATUS: DNR Time Spent With Patient Time: Total time spent is greater than 50% in coordination of care (as documented) at patient's floor/unit and/or counseling patient: QUALITY VTE Deep Vein Thrombosis/Pulmonary Embolism Present on Admission: No
[2020-12-25] MEDS: FOLIC ACID 1 MG TABLET PO SCH (08:23)
[2020-12-25] MEDS: LOSARTAN 25 MG TABLET PO SCH (08:23)
[2020-12-25] MEDS: CARVEDILOL 3.125 MG TABLET PO SCH ×2 (08:23→16:57)
[2020-12-25] MEDS: MULTIVIT,THER IRON,CA,FA & MIN 1 TABLET PO SCH (08:23)
[2020-12-25] MEDS: INSULIN GLARGINE, HUMAN 1 UNIT/0.01 ML SQ SCH (08:24)
[2020-12-25] MEDS: THIAMINE 100 MG/ML VIAL ONE ×2 (08:24→09:14)
[2020-12-25] MEDS: HEPARIN 5,000 UNIT/ML VIAL SQ SCH ×2 (08:24→21:00)
[2020-12-25] MEDS: MUPIROCIN OINT 2% 22GM NARES SCH ×2 (08:24→21:03)
[2020-12-25] MEDS: FUROSEMIDE 20 MG TABLET PO SCH ×2 (08:24→16:24)
[2020-12-25] MEDS: DOCUSATE SODIUM 100 MG CAPSULE PO SCH ×2 (08:24→21:01)
[2020-12-25] MEDS: AZITHROMYCIN 500 MG in DEXTROSE 5% IN WATER 250 ML IV SCH (08:34)
[2020-12-25] MEDS: cefTRIAXone 1 GM VIAL IV SCH (08:37)
[2020-12-25] MEDS: THIAMINE 100 MG in 0.9 % SODIUM CHLORIDE 50 ML IV SCH (09:59)
[2020-12-25] MEDS: SENNOSIDES 1 TABLET PO SCH (21:01)
[2020-12-26] MEDS: 0.9 % SODIUM CHLORIDE 10 ML SYRINGE IV SCH ×5 (04:00→21:24)
[2020-12-26] MEDS: ACETAMINOPHEN 650 MG/65 ML BAG IV PRN (04:00)
--- NOTE | 2020-12-26 07:26 | Internal Med Progress Note ---
SUBJECTIVE Subjective Patient information: Note initiated : 12/26/20 at 7:26 am Service Date, if different from initiated Date: [] Patient: Wolf Miles 85 y/o M admitted on 12/22/20 for Dementia. Chief Complaint: [] Interval history: History of present illness: Mr. Miles is a 85 year old M history of congestive heart failure, type 2 diabetes mellitus, clinically disease stage III, presenting with altered mental status. History limited by l ack of caregiver at the bedside as well as clinical situations. Unknown time of onset or durations of symptoms. Patient denies any confusions. Patient denies any shortness of breath. Patient is complaining of nonproductive cough. Patient denies any wheezing. Patient denies any fever chills or diaphoresis. Vital signs significant for mild tachycardia heart rate in the 90s and tachypnea with a breathing up to mid 20s. Labs significant for leukocytosis with WBC 14.4. Serum lactic acid 1.9. Serum creatinine level 1.7 at baseline. Serum glucose elevated 419. Serum BNP is 3723. Chest x-ray significant for bibasilar infiltrates. 12/23: s/p 16mg of Ativan given overnight, currently well sedated and sleeping. Low grade fever with Tmax 37.5 overnight. Blood culture no growth to date. S ubjective not obtained due to clinical situations. 12/24 Patient awake alert and sitting in chair eating breakfast. Currently on room air. Leukocytosis improved. Suspect more of a dementia related agitation as opposed alcohol but still could be contributing. Creatinine improved. Constipation. 12/25 Patient sitting up in chair eating breakfast. No new complaints. Feels he slept all right. No overnight events or new complaints. 12/26 No changes. Patient sitting up in chair no acute issues. Awaiting placement. Review of Systems: denies headache/fever/chills/nausea/vomiting/chest or abdominal pain/cough/dyspnea/diarrhea. Otherwise see above. Constitutional Vitals: Vital Signs Temp Pulse Resp BP Pulse Ox 97.5 F 80 16 128/77 94 12/26/20 07:04 12/26/20 03:18 12/26/20 07:04 12/26/20 07:04 12/26/20 07:04 Period Temp Pulse Resp BP Sys/Porter Pulse Ox Last 24 Hr 97 F-98.0 F 62-81 16-20 115-157/54-88 92-98 Intake and Output 12/25/20 12/26/20 12/26/20 21:59 05:59 13:59 Intake Total 400 665 Output Total 2 Balance 400 663 Weight 91.654 kg Intake & Output: Intake & Output 12/25/20 12/26/20 12/26/20 21:59 05:59 13:59 Intake Total 400 665 Output Total 2 Balance 400 663 Weight 91.654 kg Intake: IV 65 Oral 400 600 Output: # of times incontinent of urine 2 Other: Meal Lunch Dinner Percent of Meal Consumed 100% 100% Urine Appearance Clear Urine Color Straw Bright Yellow Urine Odor Normal Stool Size Small Stool Color Brown Stool Consistency Soft Formed # Voids 1 1 # of times incontinent of 1 Bowels Exam: General: Alert, Awake, No acute Distress Eyes/N/T: EOMI, Head/Neck: neck supple, CV: irreg irreg, No murmurs, Pulm: Clear b/l, no wheezing/rhonchi/rales Abd: soft, nontender, +BS x4 Ext: no clubbing/cyanosis/edema Neuro: Alert, no focal deficits, moves all extremities, Skin: warm/dry OBJ DATA Labs CBC & Chem 7: 12/24/20 05:40 12/24/20 05:40 Labs: Abnormal Lab Results 12/24/20 12/24/20 12/23/20 05:40 05:40 06:12 Lymph % (Auto) 8.8 L Lymph # (Auto) 0.94 L [place] # (Auto) 1.04 H Absolute Neutrophils 8.35 H Carbon Dioxide 19 L 18 L Anion Gap 18.0 H Creatinine 1.3 H Glucose 138 H 233 H Albumin 3.0 L 3.0 L Globulin 4.3 H 4.6 H Albumin/Globulin Ratio 0.7 L 0.7 L Meds: Medications Acetaminophen (Acetaminophen 325 Mg Tablet) 650 mg PO Q6HP PRN; Protocol PRN Reason: Per Pain Protocol/Fever > 101 Last Admin: 12/25/20 22:44 Dose: 650 mg Documented by: Albuterol/Ipratropium (Ipratropium/Albuterol 3 Ml Ampul.Neb) 3 ml NEB Q4HRT PRN PRN Reason: Wheezing Carvedilol (Carvedilol 3.125 Mg Tablet) 6.[address] [facility] Last Admin: 12/25/20 16:57 Dose: 6.25 mg Documented by: Ceftriaxone Sodium (Ceftriaxone 1 Gm Vial) [address] [facility] Last Admin: 12/25/20 08:37 Dose: 1 gm Documented by: Clonidine HCl (Clonidine Hcl 0.1 Mg Tablet) 0.1 mg PO Q4HP PRN PRN Reason: ALC Dextrose (Dextrose 50% 50 Ml Vial) 0 ml IV UD PRN PRN Reason: Hypoglycemia Diagnostic Test (Pha) (Accu-Chek 1 Each Strip) [address] [facility] Last Admin: 12/25/20 20:57 Dose: 1 each Documented by: Docusate Sodium (Docusate Sodium 100 Mg Capsule) [address] [facility] Last Admin: 12/25/20 21:01 Dose: Not Given Documented by: Folic Acid (Folic Acid 1 Mg Tablet) [address] [facility] Last Admin: 12/25/20 08:23 Dose: 1 mg Documented by: Furosemide (Furosemide 20 Mg Tablet) [address] [facility] Last Admin: 12/25/20 16:24 Dose: 20 mg Documented by: Glucose (Dextrose 31 Gm Oral.Susp) 15 gm PO PRN PRN PRN Reason: Hypoglycemia Guaifenesin (Guaifenesin/Dextromethorphan Oral Kay) 10 ml PO Q4HP PRN PRN Reason: Cough Haloperidol Lactate (Haloperidol Lactate 5 Mg/Ml Vial) 3 - 5 mg IV Q4HP PRN PRN Reason: ANXIETY/SEDATION Heparin Sodium (Porcine) (Heparin 5,000 Unit/Ml Vial) 5,[address] [facility] Last Admin: 12/25/20 21:00 Dose: 5,000 unit Documented by: Hydralazine HCl (Hydralazine 20 Mg/Ml Vial) 10 mg IV Q4HP PRN PRN Reason: Hypertension Last Admin: 12/23/20 23:17 Dose: 10 mg Documented by: Hyoscyamine (Hyoscyamine Sulfate 0.125 Mg Tablet) 0.125 mg PO QIDP PRN PRN Reason: dyspepsia Thiamine HCl 100 mg/ Sodium (Chloride) 51 mls @ 50 mls/hr IV DAILY [facility] Last Admin: 12/25/20 09:59 Dose: 51 mls/hr Documented by: Acetaminophen (Ofirmev) 650 mg in 65 mls @ 130 mls/hr IV Q6HP PRN; Protocol PRN Reason: PAIN/FEVER > 101 Last Infusion: 12/26/20 04:45 Dose: Infused Documented by: Insulin Glargine (Insulin Glargine, Human 1 Unit/0.01 Ml) [address] [facility] Last Admin: 12/25/20 08:24 Dose: 25 units Documented by: Insulin Human Lispro (Insulin Lispro 1 Unit/0.01 Ml Unit) [address] [facility] Last Admin: 12/25/20 16:54 Dose: Not Given Documented by: Insulin Human Lispro (Insulin Lispro 1 Unit/0.01 Ml Unit) [address] [facility]; Protocol Last Admin: 12/25/20 21:04 Dose: 3 units Documented by: Iron Carb/Multivit/[place]/Folic Acid (Multivit,Ther Iron,Ca,Fa & Min 1 Tablet) [address] [facility] Last Admin: 12/25/20 08:23 Dose: 1 tab Documented by: Lorazepam (Lorazepam 2 Mg/Ml Vial) 0.5 mg IV Q4-6HP PRN PRN Reason: ANXIETY/SEDATION Losartan Potassium (Losartan 25 Mg Tablet) [address] [facility] Last Admin: 12/25/20 08:23 Dose: 25 mg Documented by: Metoprolol Tartrate (Metoprolol Tartrate 5 Mg/5 Ml Vial) 5 mg IV Q2HP PRN PRN Reason: Tachyarrhythmias HR>110 Mupirocin (Mupirocin Oint 2% 22gm) [address] [facility] Last Admin: 12/25/20 21:03 Dose: 1 dose Documented by: Ondansetron HCl (Ondansetron 4 Mg/2 Ml Vial) 4 mg IV Q6HP PRN PRN Reason: Nausea And Vomiting Polyethylene Glycol (Polyethylene Glycol 3350 17 Gm Packet) 17 gm PO DAILYP PRN PRN Reason: Constipation Last Admin: 12/24/20 13:16 Dose: 17 gm Documented by: Senna (Sennosides 1 Tablet) [address] [facility] Last Admin: 12/25/20 21:01 Dose: Not Given Documented by: Sodium Chloride (0.9 % Sodium Chloride 10 Ml Syringe) [address] [facility] Last Admin: 12/26/20 04:00 Dose: 10 ml Documented by: Sodium Chloride (0.9 % Sodium Chloride 10 Ml Syringe) 10 ml IV Q8 [facility] Last Admin: 12/26/20 04:00 Dose: Not Given Documented by: Zolpidem Tartrate (Zolpidem 5 Mg Tablet) 5 mg PO HSP PRN PRN Reason: Insomnia ABG Interpretation ABG results: 12/22/20 01:49 ABG Methemoglobin 0.3 L VBG pH 7.39 VBG pCO2 35.1 L VBG pO2 77.2 H VBG HCO3 20.7 L VBG Total CO2 21.8 L VBG O2 Saturation 91.7 H VBG Base Excess -4 L A/P Narrative A/P Narrative: Assessment and plan: #CAP w/associated delirium & clinical sepsis: improving -Covid negative, leukocytosis resolved, afebrile -Rocephin/Azithro #Sepsis: 2/2 above #Acute hypoxic respiratory failure: 2/2 above -now on RA #Encephalopathy: 2/2 above + underlying Dementia +/- ?ETOH w/d: -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 now on BB #DM: A1c 11.4 -Lantus and SSI #KALANI on CKD III 2/2 DM: #h/o CHF(EF 55%): home carvedilol(increased)/Losartan DVT prophylaxis: Heparin CODE STATUS: DNR Time Spent With Patient Time: Total time spent is greater than 50% in coordination of care (as documented) at patient's floor/unit and/or counseling patient: QUALITY VTE Deep Vein Thrombosis/Pulmonary Embolism Present on Admission: No
[2020-12-26] MEDS: INSULIN LISPRO 1 UNIT/0.01 ML UNIT SQ SCH ×8 (07:44→21:30)
[2020-12-26] MEDS: cefTRIAXone 1 GM VIAL IV SCH (09:04)
[2020-12-26] MEDS: INSULIN GLARGINE, HUMAN 1 UNIT/0.01 ML SQ SCH (09:04)
[2020-12-26] MEDS: HEPARIN 5,000 UNIT/ML VIAL SQ SCH ×2 (09:05→21:24)
[2020-12-26] MEDS: FUROSEMIDE 20 MG TABLET PO SCH ×2 (09:05→16:18)
[2020-12-26] MEDS: LOSARTAN 25 MG TABLET PO SCH (09:05)
[2020-12-26] MEDS: CARVEDILOL 3.125 MG TABLET PO SCH ×2 (09:05→16:18)
[2020-12-26] MEDS: MULTIVIT,THER IRON,CA,FA & MIN 1 TABLET PO SCH (09:05)
[2020-12-26] MEDS: FOLIC ACID 1 MG TABLET PO SCH (09:05)
[2020-12-26] MEDS: MUPIROCIN OINT 2% 22GM NARES SCH ×2 (09:05→21:24)
[2020-12-26] MEDS: DOCUSATE SODIUM 100 MG CAPSULE PO SCH ×2 (09:06→21:24)
[2020-12-26] MEDS: THIAMINE 100 MG in 0.9 % SODIUM CHLORIDE 50 ML IV SCH (09:11)
[2020-12-26] MEDS: ACETAMINOPHEN 325 MG TABLET PO PRN (16:18)
[2020-12-26] MEDS: SENNOSIDES 1 TABLET PO SCH (21:24)
[2020-12-27] MEDS: 0.9 % SODIUM CHLORIDE 10 ML SYRINGE IV SCH ×4 (00:37→20:49)
[2020-12-27] MEDS: ACETAMINOPHEN 650 MG/65 ML BAG IV PRN (03:00)
[2020-12-27] MEDS: ACETAMINOPHEN 325 MG TABLET PO PRN ×3 (05:32→22:39)
--- NOTE | 2020-12-27 07:44 | Internal Med Progress Note ---
SUBJECTIVE Subjective Patient information: Note initiated : 12/27/20 at 7:43 am Service Date, if different from initiated Date: [] Patient: Wolf Miles 85 y/o M admitted on 12/22/20 for Dementia. Chief Complaint: [] Interval history: History of present illness: Mr. Miles is a 85 year old M history of congestive heart failure, type 2 diabetes mellitus, clinically disease stage III, presenting with altered mental status. History limited by l ack of caregiver at the bedside as well as clinical situations. Unknown time of onset or durations of symptoms. Patient denies any confusions. Patient denies any shortness of breath. Patient is complaining of nonproductive cough. Patient denies any wheezing. Patient denies any fever chills or diaphoresis. Vital signs significant for mild tachycardia heart rate in the 90s and tachypnea with a breathing up to mid 20s. Labs significant for leukocytosis with WBC 14.4. Serum lactic acid 1.9. Serum creatinine level 1.7 at baseline. Serum glucose elevated 419. Serum BNP is 3723. Chest x-ray significant for bibasilar infiltrates. 12/23: s/p 16mg of Ativan given overnight, currently well sedated and sleeping. Low grade fever with Tmax 37.5 overnight. Blood culture no growth to date. S ubjective not obtained due to clinical situations. 12/24 Patient awake alert and sitting in chair eating breakfast. Currently on room air. Leukocytosis improved. Suspect more of a dementia related agitation as opposed alcohol but still could be contributing. Creatinine improved. Constipation. 12/25 Patient sitting up in chair eating breakfast. No new complaints. Feels he slept all right. No overnight events or new complaints. 12/26 No changes. Patient sitting up in chair no acute issues. Awaiting placement. Review of Systems: denies headache/fever/chills/nausea/vomiting/chest or abdominal pain/cough/dyspnea/diarrhea. Otherwise see above. Constitutional Vitals: Vital Signs Temp Pulse Resp BP Pulse Ox 97 F 92 H 20 174/95 95 12/27/20 03:12 12/27/20 03:12 12/27/20 03:12 12/27/20 03:12 12/27/20 03:12 Period Temp Pulse Resp BP Sys/Porter Pulse Ox Last 24 Hr 97 F-98.4 F 83-92 18-20 108-174/72-96 91-98 Intake and Output 12/26/20 12/27/20 12/27/20 21:59 05:59 13:59 Intake Total 540 545 Output Total 2 2 Balance 538 543 Weight 91.739 kg Intake & Output: Intake & Output 12/26/20 12/27/20 12/27/20 21:59 05:59 13:59 Intake Total 540 545 Output Total 2 2 Balance 538 543 Weight 91.739 kg Intake: IV 65 Oral 540 480 Output: # of times incontinent of urine 2 2 Other: Stool Size Large Stool Color Brown Yellow Stool Consistency Liquid Watery Loose # Voids 2 1 # Bowel Movements 1 # of times incontinent of 1 Bowels Exam: General: Alert, Awake, No acute Distress Eyes/N/T: EOMI, Head/Neck: neck supple, CV: irreg irreg, No murmurs, Pulm: Clear b/l, no wheezing/rhonchi/rales Abd: soft, nontender, +BS x4 Ext: no clubbing/cyanosis/edema Neuro: Alert, no focal deficits, moves all extremities, Skin: warm/dry OBJ DATA Labs CBC & Chem 7: 12/24/20 05:40 12/24/20 05:40 Meds: Medications Acetaminophen (Acetaminophen 325 Mg Tablet) 650 mg PO Q6HP PRN; Protocol PRN Reason: Per Pain Protocol/Fever > 101 Last Admin: 12/27/20 05:32 Dose: 650 mg Documented by: Albuterol/Ipratropium (Ipratropium/Albuterol 3 Ml Ampul.Neb) 3 ml NEB Q4HRT PRN PRN Reason: Wheezing Carvedilol (Carvedilol 3.125 Mg Tablet) 6.25 mg PO BIDCC [facility] Last Admin: 12/26/20 16:18 Dose: 6.25 mg Documented by: Ceftriaxone Sodium (Ceftriaxone 1 Gm Vial) 1 gm IV Q24H [facility] Last Admin: 12/26/20 09:04 Dose: 1 gm Documented by: Clonidine HCl (Clonidine Hcl 0.1 Mg Tablet) 0.1 mg PO Q4HP PRN PRN Reason: ALC Dextrose (Dextrose 50% 50 Ml Vial) 0 ml IV UD PRN PRN Reason: Hypoglycemia Diagnostic Test (Pha) (Accu-Chek 1 Each Strip) 1 each FS ACHS [facility] Last Admin: 12/26/20 21:24 Dose: 1 each Documented by: Docusate Sodium (Docusate Sodium 100 Mg Capsule) 100 mg PO BID [facility] Last Admin: 12/26/20 21:24 Dose: Not Given Documented by: Folic Acid (Folic Acid 1 Mg Tablet) 1 mg PO DAILY [facility] Last Admin: 12/26/20 09:05 Dose: 1 mg Documented by: Furosemide (Furosemide 20 Mg Tablet) 20 mg PO BIDD [facility] Last Admin: 12/26/20 16:18 Dose: 20 mg Documented by: Glucose (Dextrose 31 Gm Oral.Susp) 15 gm PO PRN PRN PRN Reason: Hypoglycemia Guaifenesin (Guaifenesin/Dextromethorphan Oral Kay) 10 ml PO Q4HP PRN PRN Reason: Cough Haloperidol Lactate (Haloperidol Lactate 5 Mg/Ml Vial) 3 - 5 mg IV Q4HP PRN PRN Reason: ANXIETY/SEDATION Heparin Sodium (Porcine) (Heparin 5,000 Unit/Ml Vial) 5,000 unit SQ Q12 [facility] Last Admin: 12/26/20 21:24 Dose: 5,000 unit Documented by: Hydralazine HCl (Hydralazine 20 Mg/Ml Vial) 10 mg IV Q4HP PRN PRN Reason: Hypertension Last Admin: 12/23/20 23:17 Dose: 10 mg Documented by: Hyoscyamine (Hyoscyamine Sulfate 0.125 Mg Tablet) 0.125 mg PO QIDP PRN PRN Reason: dyspepsia Thiamine HCl 100 mg/ Sodium (Chloride) 51 mls @ 50 mls/hr IV DAILY [facility] Last Infusion: 12/26/20 10:26 Dose: Infused Documented by: Acetaminophen (Ofirmev) 650 mg in 65 mls @ 130 mls/hr IV Q6HP PRN; Protocol PRN Reason: PAIN/FEVER > 101 Last Infusion: 12/27/20 03:35 Dose: Infused Documented by: Insulin Glargine (Insulin Glargine, Human 1 Unit/0.01 Ml) 25 unit SQ QDAY [facility] Last Admin: 12/26/20 09:04 Dose: 25 units Documented by: Insulin Human Lispro (Insulin Lispro 1 Unit/0.01 Ml Unit) 0 unit SQ [facility]; Protocol Last Admin: 12/26/20 21:30 Dose: 4 unit Documented by: Iron Carb/Multivit/[place]/Folic Acid (Multivit,Ther Iron,Ca,Fa & Min 1 Tablet) 1 tab PO DAILY [facility] Last Admin: 12/26/20 09:05 Dose: 1 tab Documented by: Lorazepam (Lorazepam 2 Mg/Ml Vial) 0.5 mg IV Q4-6HP PRN PRN Reason: ANXIETY/SEDATION Last Admin: 12/27/20 01:12 Dose: 0.5 mg Documented by: Losartan Potassium (Losartan 25 Mg Tablet) 25 mg PO QDAY [facility] Last Admin: 12/26/20 09:05 Dose: 25 mg Documented by: Metoprolol Tartrate (Metoprolol Tartrate 5 Mg/5 Ml Vial) 5 mg IV Q2HP PRN PRN Reason: Tachyarrhythmias HR>110 Mupirocin (Mupirocin Oint 2% 22gm) 1 dose NARES BID [facility] Last Admin: 12/26/20 21:24 Dose: 1 dose Documented by: Ondansetron HCl (Ondansetron 4 Mg/2 Ml Vial) 4 mg IV Q6HP PRN PRN Reason: Nausea And Vomiting Polyethylene Glycol (Polyethylene Glycol 3350 17 Gm Packet) 17 gm PO DAILYP PRN PRN Reason: Constipation Last Admin: 12/24/20 13:16 Dose: 17 gm Documented by: Senna (Sennosides 1 Tablet) 2 tab PO HS [facility] Last Admin: 12/26/20 21:24 Dose: Not Given Documented by: Sodium Chloride (0.9 % Sodium Chloride 10 Ml Syringe) 10 ml IV Q8 [facility] Last Admin: 12/27/20 06:17 Dose: Not Given Documented by: Zolpidem Tartrate (Zolpidem 5 Mg Tablet) 5 mg PO HSP PRN PRN Reason: Insomnia ABG Interpretation ABG results: 12/22/20 01:49 ABG Methemoglobin 0.3 L VBG pH 7.39 VBG pCO2 35.1 L VBG pO2 77.2 H VBG HCO3 20.7 L VBG Total CO2 21.8 L VBG O2 Saturation 91.7 H VBG Base Excess -4 L A/P Narrative A/P Narrative: Assessment and plan: #CAP w/associated delirium & clinical sepsis: improved -Covid negative, leukocytosis resolved, afebrile -Rocephin/Azithro #Sepsis: 2/2 above #Acute hypoxic respiratory failure: 2/2 above -on RA #Encephalopathy: 2/2 above + underlying Dementia +/- ?ETOH w/d: -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 now on BB #DM: A1c 11.4 -Lantus and SSI #KALANI on CKD III 2/2 DM: #h/o CHF(EF 55%): home carvedilol(increased)/Losartan DVT prophylaxis: Heparin CODE STATUS: DNR Time Spent With Patient Time: Total time spent is greater than 50% in coordination of care (as documented) at patient's floor/unit and/or counseling patient: QUALITY VTE Deep Vein Thrombosis/Pulmonary Embolism Present on Admission: No
[2020-12-27] MEDS: INSULIN LISPRO 1 UNIT/0.01 ML UNIT SQ SCH ×4 (08:01→21:14)
--- NOTE | 2020-12-27 08:43 | Internal Med Progress Note ---
SUBJECTIVE Subjective Patient information: Note initiated : 12/27/20 at 8:42 am Service Date, if different from initiated Date: [] Patient: Wolf Miles 85 y/o M admitted on 12/22/20 for Dementia. Chief Complaint: [] Interval history: History of present illness: Mr. Miles is a 85 year old M history of congestive heart failure, type 2 diabetes mellitus, clinically disease stage III, presenting with altered mental status. History limited by l ack of caregiver at the bedside as well as clinical situations. Unknown time of onset or durations of symptoms. Patient denies any confusions. Patient denies any shortness of breath. Patient is complaining of nonproductive cough. Patient denies any wheezing. Patient denies any fever chills or diaphoresis. Vital signs significant for mild tachycardia heart rate in the 90s and tachypnea with a breathing up to mid 20s. Labs significant for leukocytosis with WBC 14.4. Serum lactic acid 1.9. Serum creatinine level 1.7 at baseline. Serum glucose elevated 419. Serum BNP is 3723. Chest x-ray significant for bibasilar infiltrates. 12/23: s/p 16mg of Ativan given overnight, currently well sedated and sleeping. Low grade fever with Tmax 37.5 overnight. Blood culture no growth to date. S ubjective not obtained due to clinical situations. 12/24 Patient awake alert and sitting in chair eating breakfast. Currently on room air. Leukocytosis improved. Suspect more of a dementia related agitation as opposed alcohol but still could be contributing. Creatinine improved. Constipation. 12/25 Patient sitting up in chair eating breakfast. No new complaints. Feels he slept all right. No overnight events or new complaints. 12/26 No changes. Patient sitting up in chair no acute issues. Awaiting placement. 12/27 No overnight event or new complaints mild confusion. Review of Systems: denies headache/fever/chills/nausea/vomiting/chest or abdominal pain/cough/dyspnea/diarrhea. Otherwise see above. Constitutional Vitals: Vital Signs Temp Pulse Resp BP Pulse Ox 98.4 F 92 H 16 132/84 95 12/27/20 07:29 12/27/20 03:12 12/27/20 07:29 12/27/20 07:29 12/27/20 07:29 Period Temp Pulse Resp BP Sys/Porter Pulse Ox Last 24 Hr 97 F-98.4 F 83-92 16-20 108-174/72-96 91-98 Intake and Output 12/26/20 12/27/20 12/27/20 21:59 05:59 13:59 Intake Total 540 545 Output Total 2 2 Balance 538 543 Weight 91.739 kg Intake & Output: Intake & Output 12/26/20 12/27/20 12/27/20 21:59 05:59 13:59 Intake Total 540 545 Output Total 2 2 Balance 538 543 Weight 91.739 kg Intake: IV 65 Oral 540 480 Output: # of times incontinent of urine 2 2 Other: Stool Size Large Stool Color Brown Yellow Stool Consistency Liquid Watery Loose # Voids 2 1 # Bowel Movements 1 # of times incontinent of 1 Bowels Exam: General: Alert, Awake, No acute Distress Eyes/N/T: EOMI, Head/Neck: neck supple, CV: irreg irreg, No murmurs, Pulm: Clear b/l, no wheezing/rhonchi/rales Abd: soft, nontender, +BS x4 Ext: no clubbing/cyanosis/edema Neuro: Alert, no focal deficits, moves all extremities, Skin: warm/dry OBJ DATA Labs CBC & Chem 7: 12/24/20 05:40 12/24/20 05:40 Meds: Medications Acetaminophen (Acetaminophen 325 Mg Tablet) 650 mg PO Q6HP PRN; Protocol PRN Reason: Per Pain Protocol/Fever > 101 Last Admin: 12/27/20 05:32 Dose: 650 mg Documented by: Albuterol/Ipratropium (Ipratropium/Albuterol 3 Ml Ampul.Neb) 3 ml NEB Q4HRT PRN PRN Reason: Wheezing Carvedilol (Carvedilol 3.125 Mg Tablet) 6.25 mg PO BIDCC [facility] Last Admin: 12/26/20 16:18 Dose: 6.25 mg Documented by: Ceftriaxone Sodium (Ceftriaxone 1 Gm Vial) 1 gm IV Q24H BECK Last Admin: 12/26/20 09:04 Dose: 1 gm Documented by: Clonidine HCl (Clonidine Hcl 0.1 Mg Tablet) 0.1 mg PO Q4HP PRN PRN Reason: ALC Dextrose (Dextrose 50% 50 Ml Vial) 0 ml IV UD PRN PRN Reason: Hypoglycemia Diagnostic Test (Pha) (Accu-Chek 1 Each Strip) 1 each FS ACHS [facility] Last Admin: 12/27/20 08:00 Dose: 1 each Documented by: Docusate Sodium (Docusate Sodium 100 Mg Capsule) 100 mg PO BID [facility] Last Admin: 12/26/20 21:24 Dose: Not Given Documented by: Folic Acid (Folic Acid 1 Mg Tablet) 1 mg PO DAILY [facility] Last Admin: 12/26/20 09:05 Dose: 1 mg Documented by: Furosemide (Furosemide 20 Mg Tablet) 20 mg PO BIDD [facility] Last Admin: 12/26/20 16:18 Dose: 20 mg Documented by: Glucose (Dextrose 31 Gm Oral.Susp) 15 gm PO PRN PRN PRN Reason: Hypoglycemia Guaifenesin (Guaifenesin/Dextromethorphan Oral Kay) 10 ml PO Q4HP PRN PRN Reason: Cough Haloperidol Lactate (Haloperidol Lactate 5 Mg/Ml Vial) 3 - 5 mg IV Q4HP PRN PRN Reason: ANXIETY/SEDATION Heparin Sodium (Porcine) (Heparin 5,000 Unit/Ml Vial) 5,000 unit SQ Q12 [facility] Last Admin: 12/26/20 21:24 Dose: 5,000 unit Documented by: Hydralazine HCl (Hydralazine 20 Mg/Ml Vial) 10 mg IV Q4HP PRN PRN Reason: Hypertension Last Admin: 12/23/20 23:17 Dose: 10 mg Documented by: Hyoscyamine (Hyoscyamine Sulfate 0.125 Mg Tablet) 0.125 mg PO QIDP PRN PRN Reason: dyspepsia Thiamine HCl 100 mg/ Sodium (Chloride) 51 mls @ 50 mls/hr IV DAILY [facility] Last Infusion: 12/26/20 10:26 Dose: Infused Documented by: Acetaminophen (Ofirmev) 650 mg in 65 mls @ 130 mls/hr IV Q6HP PRN; Protocol PRN Reason: PAIN/FEVER > 101 Last Infusion: 12/27/20 03:35 Dose: Infused Documented by: Insulin Glargine (Insulin Glargine, Human 1 Unit/0.01 Ml) 25 unit SQ QDAY [facility] Last Admin: 12/26/20 09:04 Dose: 25 units Documented by: Insulin Human Lispro (Insulin Lispro 1 Unit/0.01 Ml Unit) 0 unit SQ [facility]; Protocol Last Admin: 12/27/20 08:01 Dose: Not Given Documented by: Iron Carb/Multivit/Garden/Folic Acid (Multivit,Ther Iron,Ca,Fa & Min 1 Tablet) 1 tab PO DAILY [facility] Last Admin: 12/26/20 09:05 Dose: 1 tab Documented by: Lorazepam (Lorazepam 2 Mg/Ml Vial) 0.5 mg IV Q4-6HP PRN PRN Reason: ANXIETY/SEDATION Last Admin: 12/27/20 01:12 Dose: 0.5 mg Documented by: Losartan Potassium (Losartan 25 Mg Tablet) 25 mg PO QDAY [facility] Last Admin: 12/26/20 09:05 Dose: 25 mg Documented by: Metoprolol Tartrate (Metoprolol Tartrate 5 Mg/5 Ml Vial) 5 mg IV Q2HP PRN PRN Reason: Tachyarrhythmias HR>110 Mupirocin (Mupirocin Oint 2% 22gm) 1 dose NARES BID [facility] Last Admin: 12/26/20 21:24 Dose: 1 dose Documented by: Ondansetron HCl (Ondansetron 4 Mg/2 Ml Vial) 4 mg IV Q6HP PRN PRN Reason: Nausea And Vomiting Polyethylene Glycol (Polyethylene Glycol 3350 17 Gm Packet) 17 gm PO DAILYP PRN PRN Reason: Constipation Last Admin: 12/24/20 13:16 Dose: 17 gm Documented by: Senna (Sennosides 1 Tablet) 2 tab PO HS [facility] Last Admin: 12/26/20 21:24 Dose: Not Given Documented by: Sodium Chloride (0.9 % Sodium Chloride 10 Ml Syringe) 10 ml IV Q8 [facility] Last Admin: 12/27/20 06:17 Dose: Not Given Documented by: Zolpidem Tartrate (Zolpidem 5 Mg Tablet) 5 mg PO HSP PRN PRN Reason: Insomnia ABG Interpretation ABG results: 12/22/20 01:49 ABG Methemoglobin 0.3 L VBG pH 7.39 VBG pCO2 35.1 L VBG pO2 77.2 H VBG HCO3 20.7 L VBG Total CO2 21.8 L VBG O2 Saturation 91.7 H VBG Base Excess -4 L A/P Narrative A/P Narrative: Assessment and plan: #CAP w/associated delirium & clinical sepsis: improved -Covid negative, leukocytosis resolved, afebrile -Rocephin/Azithro #Sepsis: 2/2 above #Acute hypoxic respiratory failure: 2/2 above -on RA #Encephalopathy: 2/2 above + underlying Dementia: -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 now on BB #DM: A1c 11.4 -Lantus and SSI #KALANI on CKD III 2/2 DM: #h/o CHF(EF 55%): home carvedilol(increased)/Losartan DVT prophylaxis: Heparin CODE STATUS: DNR Time Spent With Patient Time: Total time spent is greater than 50% in coordination of care (as do cumented) at patient's floor/unit and/or counseling patient: QUALITY VTE Deep Vein Thrombosis/Pulmonary Embolism Present on Admission: No
[2020-12-27] MEDS: FUROSEMIDE 20 MG TABLET PO SCH (09:03)
[2020-12-27] MEDS: CARVEDILOL 3.125 MG TABLET PO SCH ×2 (09:03→16:41)
[2020-12-27] MEDS: FOLIC ACID 1 MG TABLET PO SCH (09:04)
[2020-12-27] MEDS: MULTIVIT,THER IRON,CA,FA & MIN 1 TABLET PO SCH (09:04)
[2020-12-27] MEDS: INSULIN GLARGINE, HUMAN 1 UNIT/0.01 ML SQ SCH (09:04)
[2020-12-27] MEDS: THIAMINE 100 MG in 0.9 % SODIUM CHLORIDE 50 ML IV SCH (09:04)
[2020-12-27] MEDS: MUPIROCIN OINT 2% 22GM NARES SCH ×2 (09:04→21:12)
[2020-12-27] MEDS: HEPARIN 5,000 UNIT/ML VIAL SQ SCH ×2 (09:04→21:12)
[2020-12-27] MEDS: LOSARTAN 25 MG TABLET PO SCH (09:04)
[2020-12-27] MEDS: cefTRIAXone 1 GM VIAL IV SCH (09:17)
[2020-12-27] MEDS: DOCUSATE SODIUM 100 MG CAPSULE PO SCH ×2 (10:02→20:49)
[2020-12-27] MEDS: SENNOSIDES 1 TABLET PO SCH (20:48)
[2020-12-27] MEDS ORDERED: LORazepam 0.5 MG TABLET PO PRN (20:52)
[2020-12-27] MEDS: OLANZapine 5 MG TABLET PO SCH (21:56)
[2020-12-28] MEDS: ACETAMINOPHEN 325 MG TABLET PO PRN ×3 (03:54→17:37)
[2020-12-28] MEDS: 0.9 % SODIUM CHLORIDE 10 ML SYRINGE IV SCH ×3 (06:03→21:18)
[2020-12-28] MEDS: FOLIC ACID 1 MG TABLET PO SCH (08:39)
[2020-12-28] MEDS: LEVOFLOXACIN 750 MG TABLET PO SCH (08:39)
[2020-12-28] MEDS: CARVEDILOL 3.125 MG TABLET PO SCH ×2 (08:39→16:23)
[2020-12-28] MEDS: HEPARIN 5,000 UNIT/ML VIAL SQ SCH ×2 (08:39→21:17)
[2020-12-28] MEDS: LOSARTAN 25 MG TABLET PO SCH (08:39)
[2020-12-28] MEDS: THIAMINE 100 MG TABLET PO SCH (08:39)
[2020-12-28] MEDS: MULTIVIT,THER IRON,CA,FA & MIN 1 TABLET PO SCH (08:39)
[2020-12-28] MEDS: INSULIN GLARGINE, HUMAN 1 UNIT/0.01 ML SQ SCH (08:40)
[2020-12-28] MEDS: MUPIROCIN OINT 2% 22GM NARES SCH ×2 (08:40→20:57)
[2020-12-28] MEDS: DOCUSATE SODIUM 100 MG CAPSULE PO SCH (08:45)
[2020-12-28] MEDS: INSULIN LISPRO 1 UNIT/0.01 ML UNIT SQ SCH ×4 (08:45→21:19)
[2020-12-28] MEDS ORDERED: LOPERAMIDE 2 MG CAPSULE PO ONE (09:58)
[2020-12-28] MEDS ORDERED: LOPERAMIDE 2 MG CAPSULE PO PRN (09:58)
--- NOTE | 2020-12-28 10:00 | Internal Med Progress Note ---
SUBJECTIVE Subjective Patient information: Note initiated : 12/28/20 at 9:57 am Service Date, if different from initiated Date: [] Patient: Wolf Miles 85 y/o M admitted on 12/22/20 for Dementia. Chief Complaint: [] Interval history: History of present illness: Mr. Miles is a 85 year old M history of congestive heart failure, type 2 diabetes mellitus, clinically disease stage III, presenting with altered mental status. History limited by l ack of caregiver at the bedside as well as clinical situations. Unknown time of onset or durations of symptoms. Patient denies any confusions. Patient denies any shortness of breath. Patient is complaining of nonproductive cough. Patient denies any wheezing. Patient denies any fever chills or diaphoresis. Vital signs significant for mild tachycardia heart rate in the 90s and tachypnea with a breathing up to mid 20s. Labs significant for leukocytosis with WBC 14.4. Serum lactic acid 1.9. Serum creatinine level 1.7 at baseline. Serum glucose elevated 419. Serum BNP is 3723. Chest x-ray significant for bibasilar infiltrates. 12/23: s/p 16mg of Ativan given overnight, currently well sedated and sleeping. Low grade fever with Tmax 37.5 overnight. Blood culture no growth to date. S ubjective not obtained due to clinical situations. 12/24 Patient awake alert and sitting in chair eating breakfast. Currently on room air. Leukocytosis improved. Suspect more of a dementia related agitation as opposed alcohol but still could be contributing. Creatinine improved. Constipation. 12/25 Patient sitting up in chair eating breakfast. No new complaints. Feels he slept all right. No overnight events or new complaints. 12/26 No changes. Patient sitting up in chair no acute issues. Awaiting placement. 12/27 No overnight event or new complaints mild confusion. 12/28 No overnight events. Awaiting placement. Constitutional Vitals: Vital Signs Temp Pulse Resp BP Pulse Ox 97 F 88 16 147/79 97 12/28/20 07:59 12/28/20 07:59 12/28/20 07:59 12/28/20 07:59 12/28/20 07:59 Period Temp Pulse Resp BP Sys/Porter Pulse Ox Last 24 Hr 97 F-98.7 F 72-88 16-20 109-167/60-89 94-98 Intake and Output 12/27/20 12/28/20 12/28/20 21:59 05:59 13:59 Intake Total 480 Output Total 250 250 Balance -250 230 Weight 90.52 kg Intake & Output: Intake & Output 12/27/20 12/28/20 12/28/20 21:59 05:59 13:59 Intake Total 480 Output Total 250 250 Balance -250 230 Weight 90.52 kg Intake: Oral 480 Output: Void Amount 250 250 Other: Meal Dinner Percent of Meal Consumed 100% Feeding Ability Assist with Tray Set Up Urine Appearance Clear Urine Color Bright Yellow Bright Yellow Urine Odor Normal Normal Exam: General: sleeping, No acute Distress Eyes/N/T: EOMI, Head/Neck: neck supple, CV: irreg irreg, No murmurs, Pulm: Clear b/l, no wheezing/rhonchi/rales Abd: soft, nontender, +BS x4 Ext: no clubbing/cyanosis/edema Neuro: , no focal deficits, moves all extremities, Skin: warm/dry OBJ DATA Labs CBC & Chem 7: 12/24/20 05:40 12/24/20 05:40 Meds: Medications Acetaminophen (Acetaminophen 325 Mg Tablet) 650 mg PO Q6HP PRN; Protocol PRN Reason: Per Pain Protocol/Fever > 101 Last Admin: 12/28/20 03:54 Dose: 650 mg Documented by: Albuterol/Ipratropium (Ipratropium/Albuterol 3 Ml Ampul.Neb) 3 ml NEB Q4HRT PRN PRN Reason: Wheezing Carvedilol (Carvedilol 3.125 Mg Tablet) [facility] Last Admin: 12/28/20 08:39 Dose: 6.25 mg Documented by: Clonidine HCl (Clonidine Hcl 0.1 Mg Tablet) 0.1 mg PO Q4HP PRN PRN Reason: ALC Dextrose (Dextrose 50% 50 Ml Vial) 0 ml IV UD PRN PRN Reason: Hypoglycemia Diagnostic Test (Pha) (Accu-Chek 1 Each Strip) 1 each FS ACHS [facility] Last Admin: 12/28/20 07:56 Dose: 1 each Documented by: Docusate Sodium (Docusate Sodium 100 Mg Capsule) 100 mg PO BID [facility] Last Admin: 12/28/20 08:45 Dose: Not Given Documented by: Folic Acid (Folic Acid 1 Mg Tablet) 1 mg PO DAILY [facility] Last Admin: 12/28/20 08:39 Dose: 1 mg Documented by: Glucose (Dextrose 31 Gm Oral.Susp) 15 gm PO PRN PRN PRN Reason: Hypoglycemia Guaifenesin (Guaifenesin/Dextromethorphan Oral Kay) 10 ml PO Q4HP PRN PRN Reason: Cough Last Admin: 12/28/20 00:06 Dose: 10 ml Documented by: Haloperidol Lactate (Haloperidol Lactate 5 Mg/Ml Vial) 3 - 5 mg IV Q4HP PRN PRN Reason: ANXIETY/SEDATION Heparin Sodium (Porcine) (Heparin 5,000 Unit/Ml Vial) 5,000 unit SQ Q12 [facility] Last Admin: 12/28/20 08:39 Dose: 5,000 unit Documented by: Hydralazine HCl (Hydralazine 20 Mg/Ml Vial) 10 mg IV Q4HP PRN PRN Reason: Hypertension Last Admin: 12/23/20 23:17 Dose: 10 mg Documented by: Hyoscyamine (Hyoscyamine Sulfate 0.125 Mg Tablet) 0.125 mg PO QIDP PRN PRN Reason: dyspepsia Acetaminophen (Ofirmev) 650 mg in 65 mls @ 130 mls/hr IV Q6HP PRN; Protocol PRN Reason: PAIN/FEVER > 101 Last Infusion: 12/27/20 03:35 Dose: Infused Documented by: Insulin Glargine (Insulin Glargine, Human 1 Unit/0.01 Ml) 25 unit SQ QDAY [facility] Last Admin: 12/28/20 08:40 Dose: 25 units Documented by: Insulin Human Lispro (Insulin Lispro 1 Unit/0.01 Ml Unit) 0 unit SQ ACHS [facility]; Protocol Last Admin: 12/28/20 08:45 Dose: Not Given Documented by: Iron Carb/Multivit/Dooly/Folic Acid (Multivit,Ther Iron,Ca,Fa & Min 1 Tablet) 1 tab PO DAILY [facility] Last Admin: 12/28/20 08:39 Dose: 1 tab Documented by: Levofloxacin (Levofloxacin 750 Mg Tablet) 750 mg PO DAILY [facility]; Protocol Last Admin: 12/28/20 08:39 Dose: 750 mg Documented by: Lorazepam (Lorazepam 2 Mg/Ml Vial) 0.5 mg IV Q4-6HP PRN PRN Reason: ANXIETY/SEDATION Last Admin: 12/27/20 01:12 Dose: 0.5 mg Documented by: Lorazepam (Lorazepam 0.5 Mg Tablet) 0.5 mg PO Q4HP PRN PRN Reason: ANXIETY/SEDATION Losartan Potassium (Losartan 25 Mg Tablet) 25 mg PO QDAY [facility] Last Admin: 12/28/20 08:39 Dose: 25 mg Documented by: Metoprolol Tartrate (Metoprolol Tartrate 5 Mg/5 Ml Vial) 5 mg IV Q2HP PRN PRN Reason: Tachyarrhythmias HR>110 Mupirocin (Mupirocin Oint 2% 22gm) 1 dose NARES BID [facility] Last Admin: 12/28/20 08:40 Dose: 1 dose Documented by: Olanzapine (Olanzapine 5 Mg Tablet) 5 mg PO HS [facility] Last Admin: 12/27/20 21:56 Dose: 5 mg Documented by: Ondansetron HCl (Ondansetron 4 Mg/2 Ml Vial) 4 mg IV Q6HP PRN PRN Reason: Nausea And Vomiting Polyethylene Glycol (Polyethylene Glycol 3350 17 Gm Packet) 17 gm PO DAILYP PRN PRN Reason: Constipation Last Admin: 12/24/20 13:16 Dose: 17 gm Documented by: Senna (Sennosides 1 Tablet) 2 tab PO HS [facility] Last Admin: 12/27/20 20:48 Dose: Not Given Documented by: Sodium Chloride (0.9 % Sodium Chloride 10 Ml Syringe) 10 ml IV Q8 [facility] Last Admin: 12/28/20 06:03 Dose: Not Given Documented by: Thiamine HCl (Thiamine 100 Mg Tablet) 100 mg PO DAILY [facility] Last Admin: 12/28/20 08:39 Dose: 100 mg Documented by: Zolpidem Tartrate (Zolpidem 5 Mg Tablet) 5 mg PO HSP PRN PRN Reason: Insomnia ABG Interpretation ABG results: 12/22/20 01:49 ABG Methemoglobin 0.3 L VBG pH 7.39 VBG pCO2 35.1 L VBG pO2 77.2 H VBG HCO3 20.7 L VBG Total CO2 21.8 L VBG O2 Saturation 91.7 H VBG Base Excess -4 L A/P Narrative A/P Narrative: Assessment and plan: #CAP w/associated delirium & clinical sepsis: improved -Covid negative, leukocytosis resolved, afebrile -abx finish course tomorrow #Sepsis: 2/2 above #Acute hypoxic respiratory failure: 2/2 above -on RA #Encephalopathy: 2/2 above + underlying Dementia: -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 now on BB #DM: A1c 11.4 -Lantus and SSI #KALANI on CKD III 2/2 DM: #h/o CHF(EF 55%): home carvedilol(increased)/Losartan DVT prophylaxis: Heparin CODE STATUS: DNR Time Spent With Patient Time: Total time spent is greater than 50% in coordination of care (as documented) at patient's floor/unit and/or counseling patient: QUALITY VTE Deep Vein Thrombosis/Pulmonary Embolism Present on Admission: No
--- NOTE | 2020-12-28 13:17 | General Surgery Progress Note ---
SUBJECTIVE Subjective Patient information: Note initiated : 12/28/20 at 1:11 pm Service Date, if different from initiated Date: [] Patient: Wolf Miles 85 y/o M admitted on 12/22/20 for Dementia. Chief Complaint: [] Additional PMFSH (Level 3 Only): Patient seen along with [employer] idea worker Nurse and Physical Therapist Mr. Miles is awake, sitting up in bed and conversational. Constitutional Vitals: Vital Signs Temp Pulse Resp BP Pulse Ox 97 F 88 16 147/79 97 12/28/20 07:59 12/28/20 07:59 12/28/20 07:59 12/28/20 07:59 12/28/20 07:59 Period Temp Pulse Resp BP Sys/Porter Pulse Ox Last 24 Hr 97 F-98.7 F 72-88 16-20 109-167/60-89 94-98 Intake and Output 12/27/20 12/28/20 12/28/20 21:59 05:59 13:59 Intake Total 480 Output Total 250 250 Balance -250 230 Weight 199 lb 9 oz Intake & Output: Intake & Output 12/27/20 12/28/20 12/28/20 21:59 05:59 13:59 Intake Total 480 Output Total 250 250 Balance -250 230 Weight 199 lb 9 oz Intake: Oral 480 Output: Void Amount 250 250 Other: Meal Dinner Percent of Meal Consumed 100% Feeding Ability Assist with Tray Set Up Urine Appearance Clear Urine Color Bright Yellow Bright Yellow Urine Odor Normal Normal Exam: AVSS Recovered well from CHF and PNA LEFT great toe and Lateral anterior foot wound sites are clean and improving. TO continue with Topical Betadine swab to Left great toe tip Anterior lateral leg. Stage 1-2 wounds. Stable and improving. A/P Narrative A/P Narrative: Assessment: Satisfactory progress form wound care point of view. Continue present care / treatment. Plan: Following patient intermittently. Awaits D/C planning and placement. Time Spent With Patient Time: Total time spent is greater than 50% in coordination of care (as documented) at patient's floor/unit and/or counseling patient: Total time spent with greater than 50% in coordination of care (as documented) at patient's floor/unit and/or counseling patient:: 15 - 24 minutes
[2020-12-28] MEDS: SENNOSIDES 1 TABLET PO SCH (21:11)
[2020-12-28] MEDS: traMADol 50 MG TABLET PO PRN (21:17)
[2020-12-28] MEDS: OLANZapine 5 MG TABLET PO SCH (21:17)
[2020-12-28] MEDS: MELATONIN 3 MG TABLET PO SCH (21:18)
[2020-12-29] MEDS: 0.9 % SODIUM CHLORIDE 10 ML SYRINGE IV SCH ×4 (05:10→21:58)
[2020-12-29] MEDS: traMADol 50 MG TABLET PO PRN ×2 (05:52→19:13)
[2020-12-29] MEDS: CARVEDILOL 3.125 MG TABLET PO SCH ×2 (08:38→17:45)
[2020-12-29] MEDS: MULTIVIT,THER IRON,CA,FA & MIN 1 TABLET PO SCH (08:38)
[2020-12-29] MEDS: HEPARIN 5,000 UNIT/ML VIAL SQ SCH ×2 (08:38→21:58)
[2020-12-29] MEDS: LEVOFLOXACIN 750 MG TABLET PO SCH (08:38)
[2020-12-29] MEDS: FOLIC ACID 1 MG TABLET PO SCH (08:38)
[2020-12-29] MEDS: LOSARTAN 25 MG TABLET PO SCH (08:39)
[2020-12-29] MEDS: MUPIROCIN OINT 2% 22GM NARES SCH ×2 (08:39→21:58)
[2020-12-29] MEDS: THIAMINE 100 MG TABLET PO SCH (08:39)
[2020-12-29] MEDS: INSULIN GLARGINE, HUMAN 1 UNIT/0.01 ML SQ SCH (08:39)
[2020-12-29] MEDS: INSULIN LISPRO 1 UNIT/0.01 ML UNIT SQ SCH ×4 (08:56→22:00)
--- NOTE | 2020-12-29 10:00 | Internal Med Progress Note ---
SUBJECTIVE Subjective Patient information: Note initiated : 12/29/20 at 9:58 am Service Date, if different from initiated Date: [] Patient: Wolf Miles 85 y/o M admitted on 12/22/20 for Dementia. Chief Complaint: [] Interval history: History of present illness: Mr. Miles is a 85 year old M history of congestive heart failure, type 2 diabetes mellitus, clinically disease stage III, presenting with altered mental status. History limited by l ack of caregiver at the bedside as well as clinical situations. Unknown time of onset or durations of symptoms. Patient denies any confusions. Patient denies any shortness of breath. Patient is complaining of nonproductive cough. Patient denies any wheezing. Patient denies any fever chills or diaphoresis. Vital signs significant for mild tachycardia heart rate in the 90s and tachypnea with a breathing up to mid 20s. Labs significant for leukocytosis with WBC 14.4. Serum lactic acid 1.9. Serum creatinine level 1.7 at baseline. Serum glucose elevated 419. Serum BNP is 3723. Chest x-ray significant for bibasilar infiltrates. 12/23: s/p 16mg of Ativan given overnight, currently well sedated and sleeping. Low grade fever with Tmax 37.5 overnight. Blood culture no growth to date. S ubjective not obtained due to clinical situations. 12/24 Patient awake alert and sitting in chair eating breakfast. Currently on room air. Leukocytosis improved. Suspect more of a dementia related agitation as opposed alcohol but still could be contributing. Creatinine improved. Constipation. 12/25 Patient sitting up in chair eating breakfast. No new complaints. Feels he slept all right. No overnight events or new complaints. 12/26 No changes. Patient sitting up in chair no acute issues. Awaiting placement. 12/27 No overnight event or new complaints mild confusion. 12/28 No overnight events. Awaiting placement. 12/29 No changes. Awaiting for placement Constitutional Vitals: Vital Signs Temp Pulse Resp BP Pulse Ox 98.4 F 85 20 113/60 95 12/29/20 08:00 12/29/20 08:00 12/29/20 08:00 12/29/20 08:00 12/29/20 08:00 Period Temp Pulse Resp BP Sys/Porter Pulse Ox Last 24 Hr 97.1 F-98.4 F 61-85 16-24 113-159/54-98 92-96 Intake and Output 12/28/20 12/29/20 12/29/20 21:59 05:59 13:59 Intake Total 1050 50 400 Output Total 9 2 1 Balance 1041 48 399 Weight 89.947 kg Intake & Output: Intake & Output 12/28/20 12/29/20 12/29/20 21:59 05:59 13:59 Intake Total 1050 50 400 Output Total 9 2 1 Balance 1041 48 399 Weight 89.947 kg Intake: Oral 1050 50 400 Output: # of times incontinent of urine 9 2 1 Other: Meal Dinner Breakfast Percent of Meal Consumed 75% 100% Feeding Ability Assist with Tray Set Up Assist with Tray Set Up Urine Appearance Clear Urine Color Bright Yellow Stool Size Small Moderate Stool Color Brown Brown Stool Consistency Soft Soft Formed # Voids 1 # Bowel Movements 2 1 Exam: General: sleeping but awakens easily, No acute Distress Eyes/N/T: EOMI, Head/Neck: neck supple, CV: irreg irreg, No murmurs, Pulm: Clear b/l, no wheezing/rhonchi/rales Abd: soft, nontender, +BS x4 Ext: no clubbing/cyanosis/edema Neuro: Awakens, no focal deficits, moves all extremities, Skin: warm/dry OBJ DATA Labs CBC & Chem 7: 12/24/20 05:40 12/24/20 05:40 Meds: Medications Acetaminophen (Acetaminophen 325 Mg Tablet) 650 mg PO Q6HP PRN; Protocol PRN Reason: Per Pain Protocol/Fever > 101 Last Admin: 12/28/20 17:37 Dose: 650 mg Documented by: Albuterol/Ipratropium (Ipratropium/Albuterol 3 Ml Ampul.Neb) 3 ml NEB Q4HRT PRN PRN Reason: Wheezing Carvedilol (Carvedilol 3.125 Mg Tablet) 6.25 mg PO BIDCC [facility] Last Admin: 12/29/20 08:38 Dose: 6.25 mg Documented by: Clonidine HCl (Clonidine Hcl 0.1 Mg Tablet) 0.1 mg PO Q4HP PRN PRN Reason: ALC Dextrose (Dextrose 50% 50 Ml Vial) 0 ml IV UD PRN PRN Reason: Hypoglycemia Diagnostic Test (Pha) (Accu-Chek 1 Each Strip) 1 each FS ACHS [facility] Last Admin: 12/29/20 08:07 Dose: 1 each Documented by: Folic Acid (Folic Acid 1 Mg Tablet) 1 mg PO DAILY [facility] Last Admin: 12/29/20 08:38 Dose: 1 mg Documented by: Glucose (Dextrose 31 Gm Oral.Susp) 15 gm PO PRN PRN PRN Reason: Hypoglycemia Guaifenesin (Guaifenesin/Dextromethorphan Oral Kay) 10 ml PO Q4HP PRN PRN Reason: Cough Last Admin: 12/28/20 00:06 Dose: 10 ml Documented by: Haloperidol Lactate (Haloperidol Lactate 5 Mg/Ml Vial) 3 - 5 mg IV Q4HP PRN PRN Reason: ANXIETY/SEDATION Heparin Sodium (Porcine) (Heparin 5,000 Unit/Ml Vial) 5,000 unit SQ Q12 [facility] Last Admin: 12/29/20 08:38 Dose: 5,000 unit Documented by: Hydralazine HCl (Hydralazine 20 Mg/Ml Vial) 10 mg IV Q4HP PRN PRN Reason: Hypertension Last Admin: 12/23/20 23:17 Dose: 10 mg Documented by: Hyoscyamine (Hyoscyamine Sulfate 0.125 Mg Tablet) 0.125 mg PO QIDP PRN PRN Reason: dyspepsia Acetaminophen (Ofirmev) 650 mg in 65 mls @ 130 mls/hr IV Q6HP PRN; Protocol PRN Reason: PAIN/FEVER > 101 Last Infusion: 12/27/20 03:35 Dose: Infused Documented by: Insulin Glargine (Insulin Glargine, Human 1 Unit/0.01 Ml) 25 unit SQ QDAY [facility] Last Admin: 12/29/20 08:39 Dose: 25 units Documented by: Insulin Human Lispro (Insulin Lispro 1 Unit/0.01 Ml Unit) 0 unit SQ [facility]; Protocol Last Admin: 12/29/20 08:56 Dose: Not Given Documented by: Iron Carb/Multivit/[place]/Folic Acid (Multivit,Ther Iron,Ca,Fa & Min 1 Tablet) 1 tab PO DAILY [facility] Last Admin: 12/29/20 08:38 Dose: 1 tab Documented by: Levofloxacin (Levofloxacin 750 Mg Tablet) 750 mg PO DAILY [facility]; Protocol Last Admin: 12/29/20 08:38 Dose: 750 mg Documented by: Loperamide HCl (Loperamide 2 Mg Capsule) 2 mg PO PRN PRN PRN Reason: Diarrhea Lorazepam (Lorazepam 2 Mg/Ml Vial) 0.5 mg IV Q4-6HP PRN PRN Reason: ANXIETY/SEDATION Last Admin: 12/27/20 01:12 Dose: 0.5 mg Documented by: Lorazepam (Lorazepam 0.5 Mg Tablet) 0.5 mg PO Q4HP PRN PRN Reason: ANXIETY/SEDATION Losartan Potassium (Losartan 25 Mg Tablet) 25 mg PO QDAY [facility] Last Admin: 12/29/20 08:39 Dose: 25 mg Documented by: Melatonin (Melatonin 3 Mg Tablet) 3 mg PO QHS [facility] Last Admin: 12/28/20 21:18 Dose: 3 mg Documented by: Metoprolol Tartrate (Metoprolol Tartrate 5 Mg/5 Ml Vial) 5 mg IV Q2HP PRN PRN Reason: Tachyarrhythmias HR>110 Mupirocin (Mupirocin Oint 2% 22gm) 1 dose NARES BID [facility] Last Admin: 12/29/20 08:39 Dose: 1 dose Documented by: Olanzapine (Olanzapine 5 Mg Tablet) 5 mg PO [facility] Last Admin: 12/28/20 21:17 Dose: 5 mg Documented by: Ondansetron HCl (Ondansetron 4 Mg/2 Ml Vial) 4 mg IV Q6HP PRN PRN Reason: Nausea And Vomiting Polyethylene Glycol (Polyethylene Glycol 3350 17 Gm Packet) 17 gm PO DAILYP PRN PRN Reason: Constipation Last Admin: 12/24/20 13:16 Dose: 17 gm Documented by: Senna (Sennosides 1 Tablet) 2 tab PO [facility] Last Admin: 12/28/20 21:11 Dose: Not Given Documented by: Sodium Chloride (0.9 % Sodium Chloride 10 Ml Syringe) 10 ml IV Q8 [facility] Last Admin: 12/29/20 05:10 Dose: Not Given Documented by: Thiamine HCl (Thiamine 100 Mg Tablet) 100 mg PO DAILY [facility] Last Admin: 12/29/20 08:39 Dose: 100 mg Documented by: Tramadol HCl (Tramadol 50 Mg Tablet) 50 mg PO Q6HP PRN; Protocol PRN Reason: Pain Last Admin: 12/29/20 05:52 Dose: 50 mg Documented by: Zolpidem Tartrate (Zolpidem 5 Mg Tablet) 5 mg PO HSP PRN PRN Reason: Insomnia ABG Interpretation ABG results: 12/22/20 01:49 ABG Methemoglobin 0.3 L VBG pH 7.39 VBG pCO2 35.1 L VBG pO2 77.2 H VBG HCO3 20.7 L VBG Total CO2 21.8 L VBG O2 Saturation 91.7 H VBG Base Excess -4 L A/P Narrative A/P Narrative: Assessment and plan: #CAP w/associated delirium & clinical sepsis: improved -Covid negative, leukocytosis resolved, afebrile -abx finished #Sepsis: 2/2 above #Acute hypoxic respiratory failure: 2/2 above -on RA #Encephalopathy: 2/2 above + underlying Dementia: -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 now on BB #DM: A1c 11.4 -Lantus and SSI #KALANI on CKD III 2/2 DM: #h/o CHF(EF 55%): home carvedilol(increased)/Losartan DVT prophylaxis: Heparin CODE STATUS: DNR Time Spent With Patient Time: Total time spent is greater than 50% in coordination of care (as documented) at patient's floor/unit and/or counseling patient: QUALITY VTE Deep Vein Thrombosis/Pulmonary Embolism Present on Admission: No
[2020-12-29] MEDS: ACETAMINOPHEN 325 MG TABLET PO PRN (14:35)
[2020-12-29] MEDS: SENNOSIDES 1 TABLET PO SCH (21:57)
[2020-12-29] MEDS: MELATONIN 3 MG TABLET PO SCH (21:58)
[2020-12-29] MEDS: OLANZapine 5 MG TABLET PO SCH (21:58)
[2020-12-30] MEDS: ACETAMINOPHEN 325 MG TABLET PO PRN ×3 (05:13→16:46)
[2020-12-30] MEDS: traMADol 50 MG TABLET PO PRN ×3 (05:13→19:13)
[2020-12-30] MEDS: 0.9 % SODIUM CHLORIDE 10 ML SYRINGE IV SCH ×3 (05:14→21:39)
--- NOTE | 2020-12-30 07:38 | Internal Med Progress Note ---
SUBJECTIVE Subjective Patient information: Note initiated : 12/30/20 at 7:38 am Service Date, if different from initiated Date: [] Patient: Wolf Miles 85 y/o M admitted on 12/22/20 for Dementia. Chief Complaint: [] Interval history: History of present illness: Mr. Miles is a 85 year old M history of congestive heart failure, type 2 diabetes mellitus, clinically disease stage III, presenting with altered mental status. History limited by l ack of caregiver at the bedside as well as clinical situations. Unknown time of onset or durations of symptoms. Patient denies any confusions. Patient denies any shortness of breath. Patient is complaining of nonproductive cough. Patient denies any wheezing. Patient denies any fever chills or diaphoresis. Vital signs significant for mild tachycardia heart rate in the 90s and tachypnea with a breathing up to mid 20s. Labs significant for leukocytosis with WBC 14.4. Serum lactic acid 1.9. Serum creatinine level 1.7 at baseline. Serum glucose elevated 419. Serum BNP is 3723. Chest x-ray significant for bibasilar infiltrates. 12/23: s/p 16mg of Ativan given overnight, currently well sedated and sleeping. Low grade fever with Tmax 37.5 overnight. Blood culture no growth to date. S ubjective not obtained due to clinical situations. 12/24 Patient awake alert and sitting in chair eating breakfast. Currently on room air. Leukocytosis improved. Suspect more of a dementia related agitation as opposed alcohol but still could be contributing. Creatinine improved. Constipation. 12/25 Patient sitting up in chair eating breakfast. No new complaints. Feels he slept all right. No overnight events or new complaints. 12/26 No changes. Patient sitting up in chair no acute issues. Awaiting placement. 12/27 No overnight event or new complaints mild confusion. 12/28 No overnight events. Awaiting placement. 12/29 No changes. Awaiting for placement 12/30 Intermittent low blood glucose so we lowered his Lantus. Otherwise no changes. Awaiting placement. Review of Systems: denies headache/fever/chills/nausea/vomiting/chest or abdominal pain/cough/dyspnea/diarrhea. Otherwise see above. Constitutional Vitals: Vital Signs Temp Pulse Resp BP Pulse Ox 97.9 F 69 20 153/73 96 12/30/20 04:30 12/30/20 04:30 12/30/20 04:30 12/30/20 04:30 12/30/20 04:30 Period Temp Pulse Resp BP Sys/Porter Pulse Ox Last 24 Hr 97.6 F-98.4 F 69-85 15-24 106-153/56-73 91-96 Intake and Output 12/29/20 12/30/20 12/30/20 21:59 05:59 13:59 Intake Total 0 0 Output Total 2 Balance 0 -2 Weight 91.354 kg Intake & Output: Intake & Output 12/29/20 12/30/20 12/30/20 21:59 05:59 13:59 Intake Total 0 0 Output Total 2 Balance 0 -2 Weight 91.354 kg Intake: Oral 0 0 Output: # of times incontinent of urine 2 Other: Stool Size Small Stool Color Brown Stool Consistency Soft Exam: General: sleeping but awakens easily, No acute Distress Eyes/N/T: EOMI, Head/Neck: neck supple, CV: irreg irreg, No murmurs, Pulm: Clear b/l, no wheezing/rhonchi/rales Abd: soft, nontender, +BS x4 Ext: no clubbing/cyanosis/edema Neuro: Awakens, no focal deficits, moves all extremities, Skin: warm/dry OBJ DATA Labs CBC & Chem 7: 12/24/20 05:40 12/24/20 05:40 Meds: Medications Acetaminophen (Acetaminophen 325 Mg Tablet) 650 mg PO Q6HP PRN; Protocol PRN Reason: Per Pain Protocol/Fever > 101 Last Admin: 12/30/20 05:13 Dose: 650 mg Documented by: Albuterol/Ipratropium (Ipratropium/Albuterol 3 Ml Ampul.Neb) 3 ml NEB Q4HRT PRN PRN Reason: Wheezing Carvedilol (Carvedilol 3.125 Mg Tablet) 6.25 mg PO BIDCC [facility] Last Admin: 12/29/20 17:45 Dose: 6.25 mg Documented by: Clonidine HCl (Clonidine Hcl 0.1 Mg Tablet) 0.1 mg PO Q4HP PRN PRN Reason: ALC Dextrose (Dextrose 50% 50 Ml Vial) 0 ml IV UD PRN PRN Reason: Hypoglycemia Diagnostic Test (Pha) (Accu-Chek 1 Each Strip) 1 each FS ACHS [facility] Last Admin: 12/29/20 22:00 Dose: 1 each Documented by: Folic Acid (Folic Acid 1 Mg Tablet) 1 mg PO DAILY [facility] Last Admin: 12/29/20 08:38 Dose: 1 mg Documented by: Glucose (Dextrose 31 Gm Oral.Susp) 15 gm PO PRN PRN PRN Reason: Hypoglycemia Guaifenesin (Guaifenesin/Dextromethorphan Oral Kay) 10 ml PO Q4HP PRN PRN Reason: Cough Last Admin: 12/28/20 00:06 Dose: 10 ml Documented by: Haloperidol Lactate (Haloperidol Lactate 5 Mg/Ml Vial) 3 - 5 mg IV Q4HP PRN PRN Reason: ANXIETY/SEDATION Heparin Sodium (Porcine) (Heparin 5,000 Unit/Ml Vial) 5,000 unit SQ Q12 [facility] Last Admin: 12/29/20 21:58 Dose: 5,000 unit Documented by: Hydralazine HCl (Hydralazine 20 Mg/Ml Vial) 10 mg IV Q4HP PRN PRN Reason: Hypertension Last Admin: 12/23/20 23:17 Dose: 10 mg Documented by: Hyoscyamine (Hyoscyamine Sulfate 0.125 Mg Tablet) 0.125 mg PO QIDP PRN PRN Reason: dyspepsia Acetaminophen (Ofirmev) 650 mg in 65 mls @ 130 mls/hr IV Q6HP PRN; Protocol PRN Reason: PAIN/FEVER > 101 Last Infusion: 12/27/20 03:35 Dose: Infused Documented by: Insulin Glargine (Insulin Glargine, Human 1 Unit/0.01 Ml) 25 unit SQ QDAY [facility] Last Admin: 12/29/20 08:39 Dose: 25 units Documented by: Insulin Human Lispro (Insulin Lispro 1 Unit/0.01 Ml Unit) 0 unit SQ [facility]; Protocol Last Admin: 12/29/20 22:00 Dose: Not Given Documented by: Iron Carb/Multivit/[employer]/Folic Acid (Multivit,Ther Iron,Ca,Fa & Min 1 Tablet) 1 tab PO DAILY [facility] Last Admin: 12/29/20 08:38 Dose: 1 tab Documented by: Loperamide HCl (Loperamide 2 Mg Capsule) 2 mg PO PRN PRN PRN Reason: Diarrhea Lorazepam (Lorazepam 2 Mg/Ml Vial) 0.5 mg IV Q4-6HP PRN PRN Reason: ANXIETY/SEDATION Last Admin: 12/27/20 01:12 Dose: 0.5 mg Documented by: Lorazepam (Lorazepam 0.5 Mg Tablet) 0.5 mg PO Q4HP PRN PRN Reason: ANXIETY/SEDATION Losartan Potassium (Losartan 25 Mg Tablet) 25 mg PO QDAY [facility] Last Admin: 12/29/20 08:39 Dose: 25 mg Documented by: Melatonin (Melatonin 3 Mg Tablet) 3 mg PO QHS [facility] Last Admin: 12/29/20 21:58 Dose: 3 mg Documented by: Metoprolol Tartrate (Metoprolol Tartrate 5 Mg/5 Ml Vial) 5 mg IV Q2HP PRN PRN Reason: Tachyarrhythmias HR>110 Mupirocin (Mupirocin Oint 2% 22gm) 1 dose NARES BID [facility] Last Admin: 12/29/20 21:58 Dose: 1 dose Documented by: Olanzapine (Olanzapine 5 Mg Tablet) 5 mg PO [facility] Last Admin: 12/29/20 21:58 Dose: 5 mg Documented by: Ondansetron HCl (Ondansetron 4 Mg/2 Ml Vial) 4 mg IV Q6HP PRN PRN Reason: Nausea And Vomiting Polyethylene Glycol (Polyethylene Glycol 3350 17 Gm Packet) 17 gm PO DAILYP PRN PRN Reason: Constipation Last Admin: 12/24/20 13:16 Dose: 17 gm Documented by: Senna (Sennosides 1 Tablet) 2 tab PO [facility] Last Admin: 12/29/20 21:57 Dose: 2 tab Documented by: Sodium Chloride (0.9 % Sodium Chloride 10 Ml Syringe) 10 ml IV Q8 [facility] Last Admin: 12/30/20 05:14 Dose: Not Given Documented by: Thiamine HCl (Thiamine 100 Mg Tablet) 100 mg PO DAILY [facility] Last Admin: 12/29/20 08:39 Dose: 100 mg Documented by: Tramadol HCl (Tramadol 50 Mg Tablet) 50 mg PO Q6HP PRN; Protocol PRN Reason: Pain Last Admin: 12/30/20 05:13 Dose: 50 mg Documented by: Zolpidem Tartrate (Zolpidem 5 Mg Tablet) 5 mg PO HSP PRN PRN Reason: Insomnia ABG Interpretation ABG results: 12/22/20 01:49 ABG Methemoglobin 0.3 L VBG pH 7.39 VBG pCO2 35.1 L VBG pO2 77.2 H VBG HCO3 20.7 L VBG Total CO2 21.8 L VBG O2 Saturation 91.7 H VBG Base Excess -4 L A/P Narrative A/P Narrative: Assessment and plan: #CAP w/associated delirium & clinical sepsis: improved -Covid negative, leukocytosis resolved, afebrile -abx finished #Sepsis: 2/2 above #Acute hypoxic respiratory failure: 2/2 above -on RA #Encephalopathy: 2/2 above + underlying Dementia: -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 now on BB #DM: A1c 11.4 -Lantus (lowered from 25 to 20 for intermittent low glucose) and SSI #KALANI on CKD III 2/2 DM: #h/o CHF(EF 55%): home carvedilol(increased)/Losartan DVT prophylaxis: Heparin CODE STATUS: DNR Time Spent With Patient Time: Total time spent is greater than 50% in coordination of care (as documented) at patient's floor/unit and/or counseling patient: QUALITY VTE Deep Vein Thrombosis/Pulmonary Embolism Present on Admission: No
[2020-12-30] MEDS: INSULIN LISPRO 1 UNIT/0.01 ML UNIT SQ SCH ×4 (08:29→21:39)
[2020-12-30] MEDS: MUPIROCIN OINT 2% 22GM NARES SCH ×2 (08:31→21:47)
[2020-12-30] MEDS: LOSARTAN 25 MG TABLET PO SCH (10:21)
[2020-12-30] MEDS: MULTIVIT,THER IRON,CA,FA & MIN 1 TABLET PO SCH (10:21)
[2020-12-30] MEDS: FOLIC ACID 1 MG TABLET PO SCH (10:21)
[2020-12-30] MEDS: CARVEDILOL 3.125 MG TABLET PO SCH ×2 (10:21→16:46)
[2020-12-30] MEDS: THIAMINE 100 MG TABLET PO SCH (10:21)
[2020-12-30] MEDS: HEPARIN 5,000 UNIT/ML VIAL SQ SCH ×2 (10:22→21:47)
[2020-12-30] MEDS: INSULIN GLARGINE, HUMAN 1 UNIT/0.01 ML SQ SCH (10:23)
--- NOTE | 2020-12-30 12:35 | XRay Report ---
INDICATION: R/O Acute Injury TECHNIQUE: AP internal and external rotation, Y, axillary views COMPARISON: None. FINDINGS: There is a left-sided cardiac pacemaker. No left shoulder fracture. No glenohumeral dislocation. Scapula and clavicle are negative. Acromioclavicular joint is normal. There is a fracture of the lateral aspects of the left fifth rib. There is no detectable pneumothorax. IMPRESSION: 1. Left fifth rib fracture 2. Negative left shoulder Interpreted and Authenticated by: Matt Dawson 12/30/20
[2020-12-30] MEDS: OLANZapine 5 MG TABLET PO SCH (21:46)
[2020-12-30] MEDS: MELATONIN 3 MG TABLET PO SCH (21:46)
[2020-12-30] MEDS: SENNOSIDES 1 TABLET PO SCH (21:48)
[2020-12-31] MEDS: 0.9 % SODIUM CHLORIDE 10 ML SYRINGE IV SCH ×3 (05:08→20:53)
[2020-12-31] MEDS: traMADol 50 MG TABLET PO PRN (05:09)
[2020-12-31] MEDS: INSULIN LISPRO 1 UNIT/0.01 ML UNIT SQ SCH ×4 (07:41→20:52)
[2020-12-31] MEDS: THIAMINE 100 MG TABLET PO SCH (08:08)
[2020-12-31] MEDS: FOLIC ACID 1 MG TABLET PO SCH (08:08)
[2020-12-31] MEDS: MULTIVIT,THER IRON,CA,FA & MIN 1 TABLET PO SCH (08:08)
[2020-12-31] MEDS: MUPIROCIN OINT 2% 22GM NARES SCH ×2 (08:08→20:39)
[2020-12-31] MEDS: INSULIN GLARGINE, HUMAN 1 UNIT/0.01 ML SQ SCH (08:08)
[2020-12-31] MEDS: CARVEDILOL 3.125 MG TABLET PO SCH ×2 (08:08→16:43)
[2020-12-31] MEDS: LOSARTAN 25 MG TABLET PO SCH (08:08)
[2020-12-31] MEDS: HEPARIN 5,000 UNIT/ML VIAL SQ SCH ×2 (08:08→20:53)
--- NOTE | 2020-12-31 12:31 | Internal Med Progress Note ---
SUBJECTIVE Subjective Patient information: Note initiated : 12/31/20 at 12:25 pm Service Date, if different from initiated Date: [] Patient: Wolf Miles 85 y/o M admitted on 12/22/20 for Dementia. Chief Complaint: [pneumonia] Interval history: History of present illness: Mr. Miles is a 85 year old M history of congestive heart failure, type 2 diabetes mellitus, clinically disease stage III, presenting with altered mental status. History limited by lack of caregiver at the bedside as well as clinical situations. Unknown time of onset or durations of symptoms. Patient denies any confusions. Patient denies any shortness of breath. Patient is complaining of nonproductive cough. Patient denies any wheezing. Patient denies any fever chills or diaphoresis. Vital signs significant for mild tachycardia heart rate in the 90s and tachypnea with a breathing up to mid 20s. Labs significant for leukocytosis with WBC 14.4. Serum lactic acid 1.9. Serum creatinine level 1.7 at baseline. Serum glucose elevated 419. Serum BNP is 3723. Chest x-ray significant for bibasilar infiltrates. 12/23: s/p 16mg of Ativan given overnight, currently well sedated and sleeping. Low grade fever with Tmax 37.5 overnight. Blood culture no growth to date. Subjective not obtained due to clinical situations. 12/24 Patient awake alert and sitting in chair eating breakfast. Currently on room air. Leukocytosis improved. Suspect more of a dementia related agitation as opposed alcohol but still could be contributing. Creatinine improved. Constipation. 12/25 Patient sitting up in chair eating breakfast. No new complaints. Feels he slept all right. No overnight events or new complaints. 12/26 No changes. Patient sitting up in chair no acute issues. Awaiting placement. 12/27 No overnight event or new complaints mild confusion. 12/28 No overnight events. Awaiting placement. 12/29 No changes. Awaiting for placement 12/30 Intermittent low blood glucose so we lowered his Lantus. Otherwise no changes. Awaiting placement. 12/31: No major overnight events. Pending placement. Constitutional Vitals: Vital Signs Temp Pulse Resp BP Pulse Ox 36.2 C 74 24 H 94/49 98 12/31/20 08:00 12/31/20 08:00 12/31/20 08:00 12/31/20 08:00 12/31/20 08:00 Period Temp Pulse Resp BP Sys/Porter Pulse Ox Last 24 Hr 36.2 C-37.3 C 70-110 18-24 94-151/49-79 95-98 Intake and Output 12/30/20 12/31/20 12/31/20 21:59 05:59 13:59 Intake Total 450 300 Output Total 2 1 1 Balance 448 299 -1 Weight 93.123 kg Intake & Output: Intake & Output 12/30/20 12/31/20 12/31/20 21:59 05:59 13:59 Intake Total 450 300 Output Total 2 1 1 Balance 448 299 -1 Weight 93.123 kg Intake: Oral 450 300 Output: # of times incontinent of urine 2 1 1 Other: Meal Dinner Percent of Meal Consumed 100% Feeding Ability Independent Urine Appearance Clear Urine Color Straw Urine Odor Normal Stool Size Large Stool Color Brown Yellow Stool Consistency Soft Formed # Voids 1 General appearance: disheveled and no acute distress; no cooperative Exam: sleeping and well sedated Head Head exam: Present atraumatic and normocephalic Eye Eye exam: Present EOMI and PERRL ENT ENT exam: Present mucous membranes moist, normal exam and normal external ear exam Neck Neck exam: Present normal inspection; Absent lymphadenopathy, tenderness and thyromegaly Respiratory Respiratory exam: Absent accessory muscle use, respiratory distress and wheezes Cardiovascular Cardiovascular exam: Present irregular rhythm; Absent JVD GI/Abdominal GI/Abdominal exam: Present normal bowel sounds and soft; Absent organomegaly and tenderness Rectal Rectal exam: Present deferred Extremities Exam Extremities exam: Present full ROM, normal capillary refill and normal inspection; Absent tenderness Neurological Exam Neurological exam: Present altered and CN II-XII intact; Absent motor sensory deficit and oriented X3 Additional comments: Lethargic Psychiatric Psychiatric exam: Present normal affect and normal mood; Absent anxious and depressed Skin Skin exam: Present dry and intact OBJ DATA Labs CBC & Chem 7: 12/24/20 05:40 12/24/20 05:40 Meds: Medications Acetaminophen (Acetaminophen 325 Mg Tablet) 650 mg PO Q6HP PRN; Protocol PRN Reason: Per Pain Protocol/Fever > 101 Last Admin: 12/30/20 16:46 Dose: 650 mg Documented by: Albuterol/Ipratropium (Ipratropium/Albuterol 3 Ml Ampul.Neb) 3 ml NEB Q4HRT PRN PRN Reason: Wheezing Carvedilol (Carvedilol 3.125 Mg Tablet) 6.25 mg PO BIDCC [facility] Last Admin: 12/31/20 08:08 Dose: 6.25 mg Documented by: Clonidine HCl (Clonidine Hcl 0.1 Mg Tablet) 0.1 mg PO Q4HP PRN PRN Reason: ALC Dextrose (Dextrose 50% 50 Ml Vial) 0 ml IV UD PRN PRN Reason: Hypoglycemia Diagnostic Test (Pha) (Accu-Chek 1 Each Strip) 1 each FS [facility] Last Admin: 12/31/20 11:16 Dose: 1 each Documented by: Folic Acid (Folic Acid 1 Mg Tablet) 1 mg PO DAILY [facility] Last Admin: 12/31/20 08:08 Dose: 1 mg Documented by: Glucose (Dextrose 31 Gm Oral.Susp) 15 gm PO PRN PRN PRN Reason: Hypoglycemia Guaifenesin (Guaifenesin/Dextromethorphan Oral Kay) 10 ml PO Q4HP PRN PRN Reason: Cough Last Admin: 12/28/20 00:06 Dose: 10 ml Documented by: Heparin Sodium (Porcine) (Heparin 5,000 Unit/Ml Vial) 5,000 unit SQ Q12 [facility] Last Admin: 12/31/20 08:08 Dose: 5,000 unit Documented by: Hydralazine HCl (Hydralazine 20 Mg/Ml Vial) 10 mg IV Q4HP PRN PRN Reason: Hypertension Last Admin: 12/23/20 23:17 Dose: 10 mg Documented by: Hyoscyamine (Hyoscyamine Sulfate 0.125 Mg Tablet) 0.125 mg PO QIDP PRN PRN Reason: dyspepsia Acetaminophen (Ofirmev) 650 mg in 65 mls @ 130 mls/hr IV Q6HP PRN; Protocol PRN Reason: PAIN/FEVER > 101 Last Infusion: 12/27/20 03:35 Dose: Infused Documented by: Insulin Glargine (Insulin Glargine, Human 1 Unit/0.01 Ml) 20 unit SQ QDAY [facility] Last Admin: 12/31/20 08:08 Dose: 20 units Documented by: Insulin Human Lispro (Insulin Lispro 1 Unit/0.01 Ml Unit) 0 unit SQ [facility]; Protocol Last Admin: 12/31/20 11:17 Dose: 6 unit Documented by: Iron Carb/Multivit/Master Plumber/Folic Acid (Multivit,Ther Iron,Ca,Fa & Min 1 Tablet) 1 tab PO DAILY [facility] Last Admin: 12/31/20 08:08 Dose: 1 tab Documented by: Loperamide HCl (Loperamide 2 Mg Capsule) 2 mg PO PRN PRN PRN Reason: Diarrhea Lorazepam (Lorazepam 2 Mg/Ml Vial) 0.5 mg IV Q4-6HP PRN PRN Reason: ANXIETY/SEDATION Last Admin: 12/27/20 01:12 Dose: 0.5 mg Documented by: Lorazepam (Lorazepam 0.5 Mg Tablet) 0.5 mg PO Q4HP PRN PRN Reason: ANXIETY/SEDATION Losartan Potassium (Losartan 25 Mg Tablet) 25 mg PO QDAY [facility] Last Admin: 12/31/20 08:08 Dose: 25 mg Documented by: Melatonin (Melatonin 3 Mg Tablet) 3 mg PO QHS [facility] Last Admin: 12/30/20 21:46 Dose: 3 mg Documented by: Metoprolol Tartrate (Metoprolol Tartrate 5 Mg/5 Ml Vial) 5 mg IV Q2HP PRN PRN Reason: Tachyarrhythmias HR>110 Mupirocin (Mupirocin Oint 2% 22gm) 1 dose NARES BID [facility] Last Admin: 12/31/20 08:08 Dose: 1 dose Documented by: Olanzapine (Olanzapine 5 Mg Tablet) 5 mg PO [facility] Last Admin: 12/30/20 21:46 Dose: 5 mg Documented by: Ondansetron HCl (Ondansetron 4 Mg/2 Ml Vial) 4 mg IV Q6HP PRN PRN Reason: Nausea And Vomiting Polyethylene Glycol (Polyethylene Glycol 3350 17 Gm Packet) 17 gm PO DAILYP PRN PRN Reason: Constipation Last Admin: 12/24/20 13:16 Dose: 17 gm Documented by: Senna (Sennosides 1 Tablet) 2 tab PO [facility] Last Admin: 12/30/20 21:48 Dose: Not Given Documented by: Sodium Chloride (0.9 % Sodium Chloride 10 Ml Syringe) 10 ml IV Q8 [facility] Last Admin: 12/31/20 05:08 Dose: Not Given Documented by: Thiamine HCl (Thiamine 100 Mg Tablet) 100 mg PO DAILY [facility] Last Admin: 12/31/20 08:08 Dose: 100 mg Documented by: Tramadol HCl (Tramadol 50 Mg Tablet) 50 mg PO Q6HP PRN; Protocol PRN Reason: Pain Last Admin: 12/31/20 05:09 Dose: 50 mg Documented by: Zolpidem Tartrate (Zolpidem 5 Mg Tablet) 5 mg PO HSP PRN PRN Reason: Insomnia ABG Interpretation ABG results: 12/22/20 01:49 ABG Methemoglobin 0.3 L VBG pH 7.39 VBG pCO2 35.1 L VBG pO2 77.2 H VBG HCO3 20.7 L VBG Total CO2 21.8 L VBG O2 Saturation 91.7 H VBG Base Excess -4 L A/P Assessment and plan (1) Community acquired bilateral lower lobe pneumonia: Status: Acute (2) CHF (congestive heart failure): Status: Acute Qualifiers: Heart failure chronicity: unspecified Heart failure type: unspecified Qualified Code(s): I50.9 - Heart failure, unspecified (3) CKD (chronic kidney disease), stage III: Status: Chronic Qualifiers: Chronic kidney disease stage 3 subtype: stage 3b (GFR 30-44) Qualified Code(s): N18.32 - Chronic kidney disease, stage 3b (4) Diabetes mellitus type 2 in obese: Status: Chronic Comment: Refill insulin, since he has been off it for 5 days, and they left it at their other home in [place] Follow-up in 1 month with PCP (5) Clinical sepsis: Status: Acute (6) Delirium: Status: Acute (7) Delirium tremens: Status: Acute Narrative A/P Narrative: Assessment and plan: 1. Community-acquired pneumonia bilateral lower lobes with associated delirium and clinical sepsis: Stays in inpatient [facility] Covid negative so no isolation protocol Serial lactic acid Procalcitonin Blood culture, no growth to date CBC with auto differential in the morning to trend WBC Finished antibiotics therapy Rocephin Tylenol as needed fever Robitussin-DM as needed cough DuoNeb nebulizer as needed wheezing Currently on room air #2 hyperglycemia uncontrolled type 2 diabetes: Hemoglobin A1c 11.4 Hold oral hypoglycemics Lantus and aspart from home regimen Correctional scale insulin high-dose ACH S Accu-Chek AC at bedtime Hypoglycemia protocol Diabetic diet next #3 stage III chronic kidney disease secondary to type 2 diabetes: Stable and kidney functions back to baseline Avoid nephrotoxic agent Saline lock #4 history of chronic congestive heart failure, stable: Carvedilol 3.125 mg p.o. twice daily Hold diuretics due to soft blood pressure Losartan 5. Delirium Tremens: s/p Banana bags X3 days Finished CIWA protocol Awaiting placement GI prophylaxis: Not currently indicated DVT prophylaxis: Heparin CODE STATUS: DNI DNR Prognosis: Stable Disposition: Inpatient MedSurg, awaiting placement Time Spent With Patient Time: Total time spent is greater than 50% in coordination of care (as documented) at patient's floor/unit and/or counseling patient: QUALITY VTE Deep Vein Thrombosis/Pulmonary Embolism Present on Admission: No
--- NOTE | 2020-12-31 16:17 | General Surgery Progress Note ---
SUBJECTIVE Subjective Patient information: Note initiated : 12/31/20 at 4:11 pm Service Date, if different from initiated Date: [] Patient: Wolf Miles 85 y/o M admitted on 12/22/20 for Dementia. Chief Complaint: [] Additional PMFSH (Level 3 Only): Saw patient on rounds along with Gary Hinson RN. Inpatient wound care nurse. Patient was alert, OOB and awaiting his lunch when we saw him. Constitutional Vitals: Vital Signs Temp Pulse Resp BP Pulse Ox 97.4 F 71 22 100/53 98 12/31/20 12:00 12/31/20 12:00 12/31/20 12:00 12/31/20 12:00 12/31/20 12:00 Period Temp Pulse Resp BP Sys/Porter Pulse Ox Last 24 Hr 97.2 F-99.2 F 71-110 18-24 94-151/49-79 95-98 Intake and Output 12/31/20 12/31/20 12/31/20 05:59 13:59 21:59 Intake Total 300 Output Total 1 1 Balance 299 -1 Intake & Output: Intake & Output 12/31/20 12/31/20 12/31/20 05:59 13:59 21:59 Intake Total 300 Output Total 1 1 Balance 299 -1 Intake: Oral 300 Output: # of times incontinent of urine 1 1 Other: Urine Appearance Clear Urine Color Straw Urine Odor Normal # Voids 1 Exam: AVSS. Talking in full sentences. AAO x 3 L/E: Wounds of LEFT foot and leg are drying up. Will d/c Betadine swab and switch to Silvasorb and Mepilex. A/P Narrative A/P Narrative: Assessment: Satisfactory progress with wound care. Recovered well from CHF and PNA. Wound care instructions as discussed and per wound care nurse. Plan: Continue ongoing treatment. Awaits placement. After D/C f/u at wound care clinic in 1-2 weeks. Time Spent With Patient Time: Total time spent is greater than 50% in coordination of care (as documented) at patient's floor/unit and/or counseling patient: Total time spent with greater than 50% in coordination of care (as documented) at patient's floor/unit and/or counseling patient:: 15 - 24 minutes
[2020-12-31] MEDS: ACETAMINOPHEN 325 MG TABLET PO PRN (17:33)
[2020-12-31] MEDS: MELATONIN 3 MG TABLET PO SCH (20:53)
[2020-12-31] MEDS: SENNOSIDES 1 TABLET PO SCH (20:53)
[2020-12-31] MEDS: OLANZapine 5 MG TABLET PO SCH (20:53)
[2021-01-01] MEDS: traMADol 50 MG TABLET PO PRN ×2 (02:04→22:18)
[2021-01-01] MEDS: ACETAMINOPHEN 325 MG TABLET PO PRN (03:08)
[2021-01-01] MEDS: 0.9 % SODIUM CHLORIDE 10 ML SYRINGE IV SCH (04:47)
[2021-01-01] MEDS: INSULIN LISPRO 1 UNIT/0.01 ML UNIT SQ SCH ×4 (07:44→20:46)
[2021-01-01] MEDS: CARVEDILOL 3.125 MG TABLET PO SCH ×2 (08:26→17:21)
[2021-01-01] MEDS: INSULIN GLARGINE, HUMAN 1 UNIT/0.01 ML SQ SCH (08:27)
[2021-01-01] MEDS: THIAMINE 100 MG TABLET PO SCH (08:27)
[2021-01-01] MEDS: HEPARIN 5,000 UNIT/ML VIAL SQ SCH ×2 (08:27→20:53)
[2021-01-01] MEDS: FOLIC ACID 1 MG TABLET PO SCH (08:27)
[2021-01-01] MEDS: MUPIROCIN OINT 2% 22GM NARES SCH ×2 (08:27→20:53)
[2021-01-01] MEDS: MULTIVIT,THER IRON,CA,FA & MIN 1 TABLET PO SCH (08:27)
[2021-01-01] MEDS: LOSARTAN 25 MG TABLET PO SCH (08:27)
[2021-01-01] MEDS: GABAPENTIN 100 MG CAPSULE PO SCH ×3 (11:11→20:52)
--- NOTE | 2021-01-01 11:25 | Internal Med Progress Note ---
SUBJECTIVE Subjective Patient information: Note initiated : 01/01/21 at 11:23 am Service Date, if different from initiated Date: [] Patient: Wolf Miles 85 y/o M admitted on 12/22/20 for Dementia. Chief Complaint: [community acquired pneumonia] Interval history: History of present illness: Mr. Miles is a 85 year old M history of congestive heart failure, type 2 diabetes mellitus, clinically disease stage III, presenting with altered mental status. History limited by lack of caregiver at the bedside as well as clinical situations. Unknown time of onset or durations of symptoms. Patient denies any confusions. Patient denies any shortness of breath. Patient is complaining of nonproductive cough. Patient denies any wheezing. Patient denies any fever chills or diaphoresis. Vital signs significant for mild tachycardia heart rate in the 90s and tachypnea with a breathing up to mid 20s. Labs significant for leukocytosis with WBC 14.4. Serum lactic acid 1.9. Serum creatinine level 1.7 at baseline. Serum glucose elevated 419. Serum BNP is 3723. Chest x-ray significant for bibasilar infiltrates. 12/23: s/p 16mg of Ativan given overnight, currently well sedated and sleeping. Low grade fever with Tmax 37.5 overnight. Blood culture no growth to date. Subjective not obtained due to clinical situations. 12/24 Patient awake alert and sitting in chair eating breakfast. Currently on room air. Leukocytosis improved. Suspect more of a dementia related agitation as opposed alcohol but still could be contributing. Creatinine improved. Constipation. 12/25 Patient sitting up in chair eating breakfast. No new complaints. Feels he slept all right. No overnight events or new complaints. 12/26 No changes. Patient sitting up in chair no acute issues. Awaiting placement. 12/27 No overnight event or new complaints mild confusion. 12/28 No overnight events. Awaiting placement. 12/29 No changes. Awaiting for placement 12/30 Intermittent low blood glucose so we lowered his Lantus. Otherwise no changes. Awaiting placement. 12/31: No major overnight events. Pending placement. 01/01: No major overnight events. Pending placement. c/o severe bilateral leg shooting pain. Constitutional Vitals: Vital Signs Temp Pulse Resp BP Pulse Ox 36.3 C 67 20 136/87 94 01/01/21 07:34 01/01/21 02:54 01/01/21 07:34 01/01/21 07:34 01/01/21 07:34 Period Temp Pulse Resp BP Sys/Porter Pulse Ox Last 24 Hr 36.2 C-36.6 C 67-83 18-22 97-147/48-87 92-98 Intake and Output 12/31/20 01/01/21 01/01/21 21:59 05:59 13:59 Intake Total 480 240 Output Total 1 2 Balance 479 238 Weight 93.894 kg Intake & Output: Intake & Output 12/31/20 01/01/21 01/01/21 21:59 05:59 13:59 Intake Total 480 240 Output Total 1 2 Balance 479 238 Weight 93.894 kg Intake: Oral 480 240 Output: # of times incontinent of urine 1 2 Other: Meal Dinner Percent of Meal Consumed 100% Urine Appearance Clear Clear Urine Color Straw Pale Bright Yellow Urine Odor Normal Normal Stool Size Moderate Stool Color Brown Stool Consistency Loose # Voids 1 # Bowel Movements 1 # of times incontinent of 1 Bowels General appearance: cooperative and mild distress Exam: sleeping and well sedated Head Head exam: Present atraumatic and normocephalic Eye Eye exam: Present EOMI and PERRL ENT ENT exam: Present mucous membranes moist, normal exam and normal external ear exam Neck Neck exam: Present normal inspection; Absent lymphadenopathy, tenderness and thyromegaly Respiratory Respiratory exam: Absent accessory muscle use, respiratory distress and wheezes Cardiovascular Cardiovascular exam: Present normal rate and rhythm; Absent JVD GI/Abdominal GI/Abdominal exam: Present normal bowel sounds and soft; Absent organomegaly and tenderness Rectal Rectal exam: Present deferred Extremities Exam Extremities exam: Present full ROM, normal capillary refill and normal inspection; Absent tenderness Neurological Exam Neurological exam: Present alert, CN II-XII intact and oriented X3; Absent motor sensory deficit Psychiatric Psychiatric exam: Present normal affect and normal mood; Absent anxious and depressed Skin Skin exam: Present dry and intact OBJ DATA Labs CBC & Chem 7: 12/24/20 05:40 12/24/20 05:40 Meds: Medications Acetaminophen (Acetaminophen 325 Mg Tablet) 650 mg PO Q6HP PRN; Protocol PRN Reason: Per Pain Protocol/Fever > 101 Last Admin: 01/01/21 03:08 Dose: 650 mg Documented by: Albuterol/Ipratropium (Ipratropium/Albuterol 3 Ml Ampul.Neb) 3 ml NEB Q4HRT PRN PRN Reason: Wheezing Carvedilol (Carvedilol 3.125 Mg Tablet) 6.25 mg PO BIDCC [facility] Last Admin: 01/01/21 08:26 Dose: 6.25 mg Documented by: Clonidine HCl (Clonidine Hcl 0.1 Mg Tablet) 0.1 mg PO Q4HP PRN PRN Reason: ALC Dextrose (Dextrose 50% 50 Ml Vial) 0 ml IV UD PRN PRN Reason: Hypoglycemia Diagnostic Test (Pha) (Accu-Chek 1 Each Strip) 1 each FS ACHS [facility] Last Admin: 01/01/21 11:11 Dose: 1 each Documented by: Folic Acid (Folic Acid 1 Mg Tablet) 1 mg PO DAILY [facility] Last Admin: 01/01/21 08:27 Dose: 1 mg Documented by: Gabapentin (Gabapentin 100 Mg Capsule) 100 mg PO TID [facility] Last Admin: 01/01/21 11:11 Dose: 100 mg Documented by: Glucose (Dextrose 31 Gm Oral.Susp) 15 gm PO PRN PRN PRN Reason: Hypoglycemia Guaifenesin (Guaifenesin/Dextromethorphan Oral Kay) 10 ml PO Q4HP PRN PRN Reason: Cough Last Admin: 12/28/20 00:06 Dose: 10 ml Documented by: Heparin Sodium (Porcine) (Heparin 5,000 Unit/Ml Vial) 5,000 unit SQ Q12 [facility] Last Admin: 01/01/21 08:27 Dose: 5,000 unit Documented by: Hydralazine HCl (Hydralazine 20 Mg/Ml Vial) 10 mg IV Q4HP PRN PRN Reason: Hypertension Last Admin: 12/23/20 23:17 Dose: 10 mg Documented by: Hyoscyamine (Hyoscyamine Sulfate 0.125 Mg Tablet) 0.125 mg PO QIDP PRN PRN Reason: dyspepsia Acetaminophen (Ofirmev) 650 mg in 65 mls @ 130 mls/hr IV Q6HP PRN; Protocol PRN Reason: PAIN/FEVER > 101 Last Infusion: 12/27/20 03:35 Dose: Infused Documented by: Insulin Glargine (Insulin Glargine, Human 1 Unit/0.01 Ml) 20 unit SQ QDAY [facility] Last Admin: 01/01/21 08:27 Dose: 20 units Documented by: Insulin Human Lispro (Insulin Lispro 1 Unit/0.01 Ml Unit) 0 unit SQ [facility]; P rotocol Last Admin: 01/01/21 11:11 Dose: 6 unit Documented by: Iron Carb/Multivit/[place]/Folic Acid (Multivit,Ther Iron,Ca,Fa & Min 1 Tablet) 1 tab PO DAILY [facility] Last Admin: 01/01/21 08:27 Dose: 1 tab Documented by: Loperamide HCl (Loperamide 2 Mg Capsule) 2 mg PO PRN PRN PRN Reason: Diarrhea Lorazepam (Lorazepam 2 Mg/Ml Vial) 0.5 mg IV Q4-6HP PRN PRN Reason: ANXIETY/SEDATION Last Admin: 12/27/20 01:12 Dose: 0.5 mg Documented by: Lorazepam (Lorazepam 0.5 Mg Tablet) 0.5 mg PO Q4HP PRN PRN Reason: ANXIETY/SEDATION Losartan Potassium (Losartan 25 Mg Tablet) 25 mg PO QDAY [facility] Last Admin: 01/01/21 08:27 Dose: 25 mg Documented by: Melatonin (Melatonin 3 Mg Tablet) 3 mg PO QHS [facility] Last Admin: 12/31/20 20:53 Dose: 3 mg Documented by: Metoprolol Tartrate (Metoprolol Tartrate 5 Mg/5 Ml Vial) 5 mg IV Q2HP PRN PRN Reason: Tachyarrhythmias HR>110 Mupirocin (Mupirocin Oint 2% 22gm) 1 dose NARES BID [facility] Last Admin: 01/01/21 08:27 Dose: 1 dose Documented by: Olanzapine (Olanzapine 5 Mg Tablet) 5 mg PO [facility] Last Admin: 12/31/20 20:53 Dose: 5 mg Documented by: Ondansetron HCl (Ondansetron 4 Mg/2 Ml Vial) 4 mg IV Q6HP PRN PRN Reason: Nausea And Vomiting Polyethylene Glycol (Polyethylene Glycol 3350 17 Gm Packet) 17 gm PO DAILYP PRN PRN Reason: Constipation Last Admin: 12/24/20 13:16 Dose: 17 gm Documented by: Senna (Sennosides 1 Tablet) 2 tab PO [facility] Last Admin: 12/31/20 20:53 Dose: Not Given Documented by: Sodium Chloride (0.9 % Sodium Chloride 10 Ml Syringe) 10 ml IV Q8 [facility] Last Admin: 01/01/21 04:47 Dose: Not Given Documented by: Thiamine HCl (Thiamine 100 Mg Tablet) 100 mg PO DAILY [facility] Last Admin: 01/01/21 08:27 Dose: 100 mg Documented by: Tramadol HCl (Tramadol 50 Mg Tablet) 50 mg PO Q6HP PRN; Protocol PRN Reason: Pain Last Admin: 01/01/21 02:04 Dose: 50 mg Documented by: Zolpidem Tartrate (Zolpidem 5 Mg Tablet) 5 mg PO HSP PRN PRN Reason: Insomnia ABG Interpretation ABG results: 12/22/20 01:49 ABG Methemoglobin 0.3 L VBG pH 7.39 VBG pCO2 35.1 L VBG pO2 77.2 H VBG HCO3 20.7 L VBG Total CO2 21.8 L VBG O2 Saturation 91.7 H VBG Base Excess -4 L A/P Assessment and plan (1) Community acquired bilateral lower lobe pneumonia: Status: Acute (2) CHF (congestive heart failure): Status: Acute Qualifiers: Heart failure chronicity: unspecified Heart failure type: unspecified Qualified Code(s): I50.9 - Heart failure, unspecified (3) CKD (chronic kidney disease), stage III: Status: Chronic Qualifiers: Chronic kidney disease stage 3 subtype: stage 3b (GFR 30-44) Qualified Code(s): N18.32 - Chronic kidney disease, stage 3b (4) Diabetes mellitus type 2 in obese: Status: Chronic Comment: Refill insulin, since he has been off it for 5 days, and they left it at their other home in [place] Follow-up in 1 month with PCP (5) Clinical sepsis: Status: Acute (6) Delirium: Status: Acute (7) Delirium tremens: Status: Acute Narrative A/P Narrative: Assessment and plan: 1. Community-acquired pneumonia bilateral lower lobes with associated delirium and clinical sepsis: [facility] so no isolation protocol Serial lactic acid Procalcitonin Blood culture, no growth to date CBC with auto differential in the morning to trend WBC Finished antibiotics therapy Rocephin Tylenol as needed fever Robitussin-DM as needed cough DuoNeb nebulizer as needed wheezing Currently on room air #2 hyperglycemia uncontrolled type 2 diabetes: Hemoglobin A1c 11.4 Hold oral hypoglycemics Lantus and aspart from home regimen Correctional scale insulin high-dose ACH S Accu-Chek AC at bedtime Hypoglycemia protocol Diabetic diet next Neurotin 100mg PO TID PRN neuropathic pain #3 stage III chronic kidney disease secondary to type 2 diabetes: Stable and kidney functions back to baseline Avoid nephrotoxic agent Saline lock #4 history of chronic congestive heart failure, stable: Carvedilol 3.125 mg p.o. twice daily Hold diuretics due to soft blood pressure Losartan 5. Delirium Tremens: s/p Banana bags X3 days Finished CIWA protocol Awaiting placement GI prophylaxis: Not currently indicated DVT prophylaxis: Heparin CODE STATUS: DNI DNR Prognosis: Stable Disposition: Inpatient MedSurg, awaiting placement Time Spent With Patient Time: Total time spent is greater than 50% in coordination of care (as documented) at patient's floor/unit and/or counseling patient: QUALITY VTE Deep Vein Thrombosis/Pulmonary Embolism Present on Admission: No
[2021-01-01] MEDS: MELATONIN 3 MG TABLET PO SCH (20:52)
[2021-01-01] MEDS: OLANZapine 5 MG TABLET PO SCH (20:52)
[2021-01-01] MEDS: SENNOSIDES 1 TABLET PO SCH (20:54)
[2021-01-02] MEDS: traMADol 50 MG TABLET PO PRN ×3 (06:04→22:07)
[2021-01-02] MEDS: INSULIN LISPRO 1 UNIT/0.01 ML UNIT SQ SCH ×4 (12:04→20:42)
--- NOTE | 2021-01-02 12:19 | Internal Med Progress Note ---
SUBJECTIVE Subjective Patient information: Note initiated : 01/02/21 at 12:17 pm Service Date, if different from initiated Date: [] Patient: Wolf Miles 85 y/o M admitted on 12/22/20 for Dementia. Chief Complaint: [Community acquired pneumonia, delirium] Interval history: History of present illness: Mr. Miles is a 85 year old M history of congestive heart failure, type 2 diabetes mellitus, clinically disease stage III, presenting with altered mental status. History limited by lack of caregiver at the bedside as well as clinical situations. Unknown time of onset or durations of symptoms. Patient denies any confusions. Patient denies any shortness of breath. Patient is complaining of nonproductive cough. Patient denies any wheezing. Patient denies any fever chills or diaphoresis. Vital signs significant for mild tachycardia heart rate in the 90s and tachypnea with a breathing up to mid 20s. Labs significant for leukocytosis with WBC 14.4. Serum lactic acid 1.9. Serum creatinine level 1.7 at baseline. Serum glucose elevated 419. Serum BNP is 3723. Chest x-ray significant for bibasilar infiltrates. 12/23: s/p 16mg of Ativan given overnight, currently well sedated and sleeping. Low grade fever with Tmax 37.5 overnight. Blood culture no growth to date. Subjective not obtained due to clinical situations. 12/24 Patient awake alert and sitting in chair eating breakfast. Currently on room air. Leukocytosis improved. Suspect more of a dementia related agitation as opposed alcohol but still could be contributing. Creatinine improved. Constipation. 12/25 Patient sitting up in chair eating breakfast. No new complaints. Feels he slept all right. No overnight events or new complaints. 12/26 No changes. Patient sitting up in chair no acute issues. Awaiting placement. 12/27 No overnight event or new complaints mild confusion. 12/28 No overnight events. Awaiting placement. 12/29 No changes. Awaiting for placement 12/30 Intermittent low blood glucose so we lowered his Lantus. Otherwise no changes. Awaiting placement. 12/31: No major overnight events. Pending placement. 01/01: No major overnight events. Pending placement. c/o severe bilateral leg shooting pain. 01/02: No major overnight events. Pending placement. No complaints. Constitutional Vitals: Vital Signs Temp Pulse Resp BP Pulse Ox 36.4 C 71 16 131/82 95 01/02/21 11:31 01/02/21 11:31 01/02/21 11:31 01/02/21 11:31 01/02/21 11:31 Period Temp Pulse Resp BP Sys/Porter Pulse Ox Last 24 Hr 36.1 C-36.4 C 51-77 14-20 111-161/57-84 94-98 Intake and Output 01/01/21 01/02/21 01/02/21 21:59 05:59 13:59 Intake Total 340 920 Output Total 252 226 Balance 88 694 Weight 92.59 kg Intake & Output: Intake & Output 01/01/21 01/02/21 01/02/21 21:59 05:59 13:59 Intake Total 340 920 Output Total 252 226 Balance 88 694 Weight 92.59 kg Intake: Nourishment/Supplement quantity 240 (ml) Oral 100 920 Output: Void Amount 250 225 # of times incontinent of urine 2 1 Other: Meal Lunch Percent of Meal Consumed 0% Nourishment/Supplement name Ensure Urine Appearance Clear Clear Urine Color Dark Yellow Pale Urine Odor Normal Stool Size Small Smear Stool Color Brown Brown Stool Consistency Soft Loose # Voids 1 # Bowel Movements 1 # of times incontinent of 1 1 Bowels General appearance: cooperative and no acute distress Exam: sleeping and well sedated Head Head exam: Present atraumatic and normocephalic Eye Eye exam: Present EOMI and PERRL ENT ENT exam: Present mucous membranes moist, normal exam and normal external ear exam Neck Neck exam: Present normal inspection; Absent lymphadenopathy, tenderness and thyromegaly Respiratory Respiratory exam: Absent accessory muscle use, respiratory distress and wheezes Cardiovascular Cardiovascular exam: Present normal rate and rhythm; Absent JVD GI/Abdominal GI/Abdominal exam: Present normal bowel sounds and soft; Absent organomegaly and tenderness Rectal Rectal exam: Present deferred Extremities Exam Extremities exam: Present full ROM, normal capillary refill and normal inspectio n; Absent tenderness Neurological Exam Neurological exam: Present alert, CN II-XII intact and oriented X3; Absent motor sensory deficit Psychiatric Psychiatric exam: Present normal affect and normal mood; Absent anxious and depressed Skin Skin exam: Present dry and intact OBJ DATA Labs CBC & Chem 7: 12/24/20 05:40 12/24/20 05:40 Meds: Medications Acetaminophen (Acetaminophen 325 Mg Tablet) 650 mg PO Q6HP PRN; Protocol PRN Reason: Per Pain Protocol/Fever > 101 Last Admin: 01/01/21 03:08 Dose: 650 mg Documented by: Albuterol/Ipratropium (Ipratropium/Albuterol 3 Ml Ampul.Neb) 3 ml NEB Q4HRT PRN PRN Reason: Wheezing Carvedilol (Carvedilol 3.125 Mg Tablet) 6.25 mg PO BIDCC [facility] Last Admin: 01/01/21 17:21 Dose: 6.25 mg Documented by: Clonidine HCl (Clonidine Hcl 0.1 Mg Tablet) 0.1 mg PO Q4HP PRN PRN Reason: ALC Dextrose (Dextrose 50% 50 Ml Vial) 0 ml IV UD PRN PRN Reason: Hypoglycemia Diagnostic Test (Pha) (Accu-Chek 1 Each Strip) 1 each FS ACHS [facility] Last Admin: 01/02/21 12:04 Dose: Not Given Documented by: Folic Acid (Folic Acid 1 Mg Tablet) 1 mg PO DAILY [facility] Last Admin: 01/01/21 08:27 Dose: 1 mg Documented by: Gabapentin (Gabapentin 100 Mg Capsule) 100 mg PO TID [facility] Last Admin: 01/01/21 20:52 Dose: 100 mg Documented by: Glucose (Dextrose 31 Gm Oral.Susp) 15 gm PO PRN PRN PRN Reason: Hypoglycemia Guaifenesin (Guaifenesin/Dextromethorphan Oral Kay) 10 ml PO Q4HP PRN PRN Reason: Cough Last Admin: 12/28/20 00:06 Dose: 10 ml Documented by: Heparin Sodium (Porcine) (Heparin 5,000 Unit/Ml Vial) 5,000 unit SQ Q12 [facility] Last Admin: 01/01/21 20:53 Dose: 5,000 unit Documented by: Hydralazine HCl (Hydralazine 20 Mg/Ml Vial) 10 mg IV Q4HP PRN PRN Reason: Hypertension Last Admin: 12/23/20 23:17 Dose: 10 mg Documented by: Hyoscyamine (Hyoscyamine Sulfate 0.125 Mg Tablet) 0.125 mg PO QIDP PRN PRN Reason: dyspepsia Acetaminophen (Ofirmev) 650 mg in 65 mls @ 130 mls/hr IV Q6HP PRN; Protocol PRN Reason: PAIN/FEVER > 101 Last Infusion: 12/27/20 03:35 Dose: Infused Documented by: Insulin Glargine (Insulin Glargine, Human 1 Unit/0.01 Ml) 20 unit SQ QDAY [facility] Last Admin: 01/01/21 08:27 Dose: 20 units Documented by: Insulin Human Lispro (Insulin Lispro 1 Unit/0.01 Ml Unit) 0 unit SQ [facility]; Protocol Last Admin: 01/02/21 12:04 Dose: Not Given Documented by: Iron Carb/Multivit/Bensley/Folic Acid (Multivit,Ther Iron,Ca,Fa & Min 1 Tablet) 1 tab PO DAILY [facility] Last Admin: 01/01/21 08:27 Dose: 1 tab Documented by: Loperamide HCl (Loperamide 2 Mg Capsule) 2 mg PO PRN PRN PRN Reason: Diarrhea Lorazepam (Lorazepam 2 Mg/Ml Vial) 0.5 mg IV Q4-6HP PRN PRN Reason: ANXIETY/SEDATION Last Admin: 12/27/20 01:12 Dose: 0.5 mg Documented by: Lorazepam (Lorazepam 0.5 Mg Tablet) 0.5 mg PO Q4HP PRN PRN Reason: ANXIETY/SEDATION Losartan Potassium (Losartan 25 Mg Tablet) 25 mg PO QDAY [facility] Last Admin: 01/01/21 08:27 Dose: 25 mg Documented by: Melatonin (Melatonin 3 Mg Tablet) 3 mg PO QHS [facility] Last Admin: 01/01/21 20:52 Dose: 3 mg Documented by: Metoprolol Tartrate (Metoprolol Tartrate 5 Mg/5 Ml Vial) 5 mg IV Q2HP PRN PRN Reason: Tachyarrhythmias HR>110 Mupirocin (Mupirocin Oint 2% 22gm) 1 dose NARES BID [facility] Last Admin: 01/01/21 20:53 Dose: 1 dose Documented by: Olanzapine (Olanzapine 5 Mg Tablet) 5 mg PO HS [facility] Last Admin: 01/01/21 20:52 Dose: 5 mg Documented by: Ondansetron HCl (Ondansetron 4 Mg/2 Ml Vial) 4 mg IV Q6HP PRN PRN Reason: Nausea And Vomiting Polyethylene Glycol (Polyethylene Glycol 3350 17 Gm Packet) 17 gm PO DAILYP PRN PRN Reason: Constipation Last Admin: 12/24/20 13:16 Dose: 17 gm Documented by: Senna (Sennosides 1 Tablet) 2 tab PO HS [facility] Last Admin: 01/01/21 20:54 Dose: Not Given Documented by: Thiamine HCl (Thiamine 100 Mg Tablet) 100 mg PO DAILY [facility] Last Admin: 01/01/21 08:27 Dose: 100 mg Documented by: Tramadol HCl (Tramadol 50 Mg Tablet) 50 mg PO Q6HP PRN; Protocol PRN Reason: Pain Last Admin: 01/02/21 06:04 Dose: 50 mg Documented by: Zolpidem Tartrate (Zolpidem 5 Mg Tablet) 5 mg PO HSP PRN PRN Reason: Insomnia ABG Interpretation ABG results: 12/22/20 01:49 ABG Methemoglobin 0.3 L VBG pH 7.39 VBG pCO2 35.1 L VBG pO2 77.2 H VBG HCO3 20.7 L VBG Total CO2 21.8 L VBG O2 Saturation 91.7 H VBG Base Excess -4 L A/P Assessment and plan (1) Community acquired bilateral lower lobe pneumonia: Status: Acute (2) CHF (congestive heart failure): Status: Acute Qualifiers: Heart failure chronicity: unspecified Heart failure type: unspecified Qualified Code(s): I50.9 - Heart failure, unspecified (3) CKD (chronic kidney disease), stage III: Status: Chronic Qualifiers: Chronic kidney disease stage 3 subtype: stage 3b (GFR 30-44) Qualified Code(s): N18.32 - Chronic kidney disease, stage 3b (4) Diabetes mellitus type 2 in obese: Status: Chronic Comment: Refill insulin, since he has been off it for 5 days, and they left it at their other home in [place] Follow-up in 1 month with PCP (5) Clinical sepsis: Status: Acute (6) Delirium: Status: Acute (7) Delirium tremens: Status: Acute Narrative A/P Narrative: Assessment and plan: 1. Community-acquired pneumonia bilateral lower lobes with associated delirium and clinical sepsis: Stays in inpatient MedSur Covid negative so no isolation protocol Serial lactic acid Procalcitonin Blood culture, no growth to date CBC with auto differential in the morning to trend WBC Finished antibiotics therapy Rocephin Tylenol as needed fever Robitussin-DM as needed cough DuoNeb nebulizer as needed wheezing Currently on room air #2 hyperglycemia uncontrolled type 2 diabetes: Hemoglobin A1c 11.4 Hold oral hypoglycemics Lantus and aspart from home regimen Correctional scale insulin high-dose ACH S Accu-Chek AC at bedtime Hypoglycemia protocol Diabetic diet next Neurotin 100mg PO TID PRN neuropathic pain #3 stage III chronic kidney disease secondary to type 2 diabetes: Stable and kidney functions back to baseline Avoid nephrotoxic agent Saline lock #4 history of chronic congestive heart failure, stable: Carvedilol 3.125 mg p.o. twice daily Hold diuretics due to soft blood pressure Losartan 5. Delirium Tremens: s/p Banana bags X3 days Finished CIWA protocol Awaiting placement GI prophylaxis: Not currently indicated DVT prophylaxis: Heparin CODE STATUS: DNI DNR Prognosis: Stable Disposition: Inpatient MedSurg, awaiting placement Time Spent With Patient Time: Total time spent is greater than 50% in coordination of care (as documented) at patient's floor/unit and/or counseling patient: QUALITY VTE Deep Vein Thrombosis/Pulmonary Embolism Present on Admission: No
[2021-01-02] MEDS: GABAPENTIN 100 MG CAPSULE PO SCH ×3 (12:21→20:44)
[2021-01-02] MEDS: THIAMINE 100 MG TABLET PO SCH (12:21)
[2021-01-02] MEDS: MULTIVIT,THER IRON,CA,FA & MIN 1 TABLET PO SCH (12:22)
[2021-01-02] MEDS: LOSARTAN 25 MG TABLET PO SCH (12:22)
[2021-01-02] MEDS: FOLIC ACID 1 MG TABLET PO SCH (12:22)
[2021-01-02] MEDS: CARVEDILOL 3.125 MG TABLET PO SCH ×2 (12:24→16:36)
[2021-01-02] MEDS: HEPARIN 5,000 UNIT/ML VIAL SQ SCH ×2 (12:30→20:42)
[2021-01-02] MEDS: MUPIROCIN OINT 2% 22GM NARES SCH ×2 (12:32→20:42)
[2021-01-02] MEDS: INSULIN GLARGINE, HUMAN 1 UNIT/0.01 ML SQ SCH (12:40)
[2021-01-02] MEDS: SENNOSIDES 1 TABLET PO SCH (20:34)
[2021-01-02] MEDS: MELATONIN 3 MG TABLET PO SCH (20:43)
[2021-01-02] MEDS: OLANZapine 5 MG TABLET PO SCH (20:43)
[2021-01-03] MEDS: INSULIN GLARGINE, HUMAN 1 UNIT/0.01 ML SQ SCH (08:46)
[2021-01-03] MEDS: HEPARIN 5,000 UNIT/ML VIAL SQ SCH ×2 (08:47→20:11)
[2021-01-03] MEDS: MULTIVIT,THER IRON,CA,FA & MIN 1 TABLET PO SCH (08:47)
[2021-01-03] MEDS: LOSARTAN 25 MG TABLET PO SCH (08:47)
[2021-01-03] MEDS: CARVEDILOL 3.125 MG TABLET PO SCH ×2 (08:47→17:40)
[2021-01-03] MEDS: FOLIC ACID 1 MG TABLET PO SCH (08:48)
[2021-01-03] MEDS: MUPIROCIN OINT 2% 22GM NARES SCH ×2 (08:48→19:48)
[2021-01-03] MEDS: GABAPENTIN 100 MG CAPSULE PO SCH ×3 (08:48→20:11)
[2021-01-03] MEDS: INSULIN LISPRO 1 UNIT/0.01 ML UNIT SQ SCH ×4 (08:48→20:11)
[2021-01-03] MEDS: THIAMINE 100 MG TABLET PO SCH (08:48)
[2021-01-03] MEDS: traMADol 50 MG TABLET PO PRN ×2 (10:49→23:04)
--- NOTE | 2021-01-03 11:22 | Internal Med Progress Note ---
SUBJECTIVE Subjective Patient information: Note initiated : 01/03/21 at 11:21 am Service Date, if different from initiated Date: [] Patient: Wolf Miles 85 y/o M admitted on 12/22/20 for Dementia. Chief Complaint: [Community acquired pneumonia] Interval history: History of present illness: Mr. Miles is a 85 year old M history of congestive heart failure, type 2 diabetes mellitus, clinically disease stage III, presenting with altered mental status. History limited by lack of caregiver at the bedside as well as clinical situations. Unknown time of onset or durations of symptoms. Patient denies any confusions. Patient denies any shortness of breath. Patient is complaining of nonproductive cough. Patient denies any wheezing. Patient denies any fever chills or diaphoresis. Vital signs significant for mild tachycardia heart rate in the 90s and tachypnea with a breathing up to mid 20s. Labs significant for leukocytosis with WBC 14.4. Serum lactic acid 1.9. Serum creatinine level 1.7 at baseline. Serum glucose elevated 419. Serum BNP is 3723. Chest x-ray significant for bibasilar infiltrates. 12/23: s/p 16mg of Ativan given overnight, currently well sedated and sleeping. Low grade fever with Tmax 37.5 overnight. Blood culture no growth to date. Subjective not obtained due to clinical situations. 12/24 Patient awake alert and sitting in chair eating breakfast. Currently on room air. Leukocytosis improved. Suspect more of a dementia related agitation as opposed alcohol but still could be contributing. Creatinine improved. Constipation. 12/25 Patient sitting up in chair eating breakfast. No new complaints. Feels he slept all right. No overnight events or new complaints. 12/26 No changes. Patient sitting up in chair no acute issues. Awaiting placement. 12/27 No overnight event or new complaints mild confusion. 12/28 No overnight events. Awaiting placement. 12/29 No changes. Awaiting for placement 12/30 Intermittent low blood glucose so we lowered his Lantus. Otherwise no changes. Awaiting placement. 12/31: No major overnight events. Pending placement. 01/01: No major overnight events. Pending placement. c/o severe bilateral leg shooting pain. 01/02: No major overnight events. Pending placement. No complaints. 01/03: No major overnight events. Pending placement. No complaints. Constitutional Vitals: Vital Signs Temp Pulse Resp BP Pulse Ox 36.1 C 63 16 146/81 92 01/03/21 07:23 01/03/21 07:23 01/03/21 07:23 01/03/21 07:23 01/03/21 07:23 Period Temp Pulse Resp BP Sys/Porter Pulse Ox Last 24 Hr 36.1 C-36.9 C 63-74 16-18 112-146/59-82 92-96 Intake and Output 01/02/21 01/03/21 01/03/21 21:59 05:59 13:59 Intake Total 350 200 400 Output Total 227 751 Balance 123 200 -351 Weight 93.1 kg Intake & Output: Intake & Output 01/02/21 01/03/21 01/03/21 21:59 05:59 13:59 Intake Total 350 200 400 Output Total 227 751 Balance 123 200 -351 Weight 93.1 kg Intake: Oral 350 200 400 Output: Void Amount 225 750 # of times incontinent of urine 2 1 Other: Meal Dinner Breakfast Percent of Meal Consumed 100% 100% Feeding Ability Assist with Tray Set Up Urine Appearance Clear Urine Odor Normal Normal Stool Size Moderate Smear Copious Stool Color Brown Brown Brown Stool Consistency Soft Loose # Voids 1 1 # Bowel Movements 1 # of times incontinent of 1 1 Bowels General appearance: cooperative and no acute distress Exam: sleeping and well sedated Head Head exam: Present atraumatic and normocephalic Eye Eye exam: Present EOMI and PERRL ENT ENT exam: Present mucous membranes moist, normal exam and normal external ear exam Neck Neck exam: Present normal inspection; Absent lymphadenopathy, tenderness and thyromegaly Respiratory Respiratory exam: Absent accessory muscle use, respiratory distress and wheezes Cardiovascular Cardiovascular exam: Present normal rate and rhythm; Absent JVD GI/Abdominal GI/Abdominal exam: Present normal bowel sounds and soft; Absent organomegaly and tenderness Rectal Rectal exam: Present deferred Extremities Exam Extremities exam: Present full ROM, normal capillary refill and normal inspection; Absent tenderness Neurological Exam Neurological exam: Present alert, CN II-XII intact and oriented X3; Absent motor sensory deficit Psychiatric Psychiatric exam: Present normal affect and normal mood; Absent anxious and depressed Skin Skin exam: Present dry and intact OBJ DATA Labs CBC & Chem 7: 12/24/20 05:40 12/24/20 05:40 Meds: Medications Acetaminophen (Acetaminophen 325 Mg Tablet) 650 mg PO Q6HP PRN; Protocol PRN Reason: Per Pain Protocol/Fever > 101 Last Admin: 01/01/21 03:08 Dose: 650 mg Documented by: Albuterol/Ipratropium (Ipratropium/Albuterol 3 Ml Ampul.Neb) 3 ml NEB Q4HRT PRN PRN Reason: Wheezing Carvedilol (Carvedilol 3.125 Mg Tablet) 6.25 mg PO BIDCC [facility] Last Admin: 01/03/21 08:47 Dose: 6.25 mg Documented by: Clonidine HCl (Clonidine Hcl 0.1 Mg Tablet) 0.1 mg PO Q4HP PRN PRN Reason: ALC Dextrose (Dextrose 50% 50 Ml Vial) 0 ml IV UD PRN PRN Reason: Hypoglycemia Diagnostic Test (Pha) (Accu-Chek 1 Each Strip) 1 each FS ACHS [facility] Last Admin: 01/03/21 08:48 Dose: 1 each Documented by: Folic Acid (Folic Acid 1 Mg Tablet) 1 mg PO DAILY [facility] Last Admin: 01/03/21 08:48 Dose: 1 mg Documented by: Gabapentin (Gabapentin 100 Mg Capsule) 100 mg PO TID [facility] Last Admin: 01/03/21 08:48 Dose: 100 mg Documented by: Glucose (Dextrose 31 Gm Oral.Susp) 15 gm PO PRN PRN PRN Reason: Hypoglycemia Guaifenesin (Guaifenesin/Dextromethorphan Oral Kay) 10 ml PO Q4HP PRN PRN Reason: Cough Last Admin: 12/28/20 00:06 Dose: 10 ml Documented by: Heparin Sodium (Porcine) (Heparin 5,000 Unit/Ml Vial) 5,000 unit SQ Q12 [facility] Last Admin: 01/03/21 08:47 Dose: 5,000 unit Documented by: Hydralazine HCl (Hydralazine 20 Mg/Ml Vial) 10 mg IV Q4HP PRN PRN Reason: Hypertension Last Admin: 12/23/20 23:17 Dose: 10 mg Documented by: Hyoscyamine (Hyoscyamine Sulfate 0.125 Mg Tablet) 0.125 mg PO QIDP PRN PRN Reason: dyspepsia Acetaminophen (Ofirmev) 650 mg in 65 mls @ 130 mls/hr IV Q6HP PRN; Protocol PRN Reason: PAIN/FEVER > 101 Last Infusion: 12/27/20 03:35 Dose: Infused Documented by: Insulin Glargine (Insulin Glargine, Human 1 Unit/0.01 Ml) 20 unit SQ QDAY [facility] Last Admin: 01/03/21 08:46 Dose: 20 units Documented by: Insulin Human Lispro (Insulin Lispro 1 Unit/0.01 Ml Unit) 0 unit SQ [facility]; Protocol Last Admin: 01/03/21 08:48 Dose: Not Given Documented by: Iron Carb/Multivit/Shipping Clerk/Admin/Folic Acid (Multivit,Ther Iron,Ca,Fa & Min 1 Tablet) 1 tab PO DAILY [facility] Last Admin: 01/03/21 08:47 Dose: 1 tab Documented by: Loperamide HCl (Loperamide 2 Mg Capsule) 2 mg PO PRN PRN PRN Reason: Diarrhea Lorazepam (Lorazepam 2 Mg/Ml Vial) 0.5 mg IV Q4-6HP PRN PRN Reason: ANXIETY/SEDATION Last Admin: 12/27/20 01:12 Dose: 0.5 mg Documented by: Lorazepam (Lorazepam 0.5 Mg Tablet) 0.5 mg PO Q4HP PRN PRN Reason: ANXIETY/SEDATION Losartan Potassium (Losartan 25 Mg Tablet) 25 mg PO QDAY [facility] Last Admin: 01/03/21 08:47 Dose: 25 mg Documented by: Melatonin (Melatonin 3 Mg Tablet) 3 mg PO QHS [facility] Last Admin: 01/02/21 20:43 Dose: 3 mg Documented by: Metoprolol Tartrate (Metoprolol Tartrate 5 Mg/5 Ml Vial) 5 mg IV Q2HP PRN PRN Reason: Tachyarrhythmias HR>110 Mupirocin (Mupirocin Oint 2% 22gm) 1 dose NARES BID [facility] Last Admin: 01/03/21 08:48 Dose: 1 dose Documented by: Olanzapine (Olanzapine 5 Mg Tablet) 5 mg PO HS [facility] Last Admin: 01/02/21 20:43 Dose: 5 mg Documented by: Ondansetron HCl (Ondansetron 4 Mg/2 Ml Vial) 4 mg IV Q6HP PRN PRN Reason: Nausea And Vomiting Polyethylene Glycol (Polyethylene Glycol 3350 17 Gm Packet) 17 gm PO DAILYP PRN PRN Reason: Constipation Last Admin: 12/24/20 13:16 Dose: 17 gm Documented by: Senna (Sennosides 1 Tablet) 2 tab PO HS [facility] Last Admin: 01/02/21 20:34 Dose: Not Given Documented by: Thiamine HCl (Thiamine 100 Mg Tablet) 100 mg PO DAILY [facility] Last Admin: 01/03/21 08:48 Dose: 100 mg Documented by: Tramadol HCl (Tramadol 50 Mg Tablet) 50 mg PO Q6HP PRN; Protocol PRN Reason: Pain Last Admin: 01/03/21 10:49 Dose: 50 mg Documented by: Zolpidem Tartrate (Zolpidem 5 Mg Tablet) 5 mg PO HSP PRN PRN Reason: Insomnia ABG Interpretation ABG results: 12/22/20 01:49 ABG Methemoglobin 0.3 L VBG pH 7.39 VBG pCO2 35.1 L VBG pO2 77.2 H VBG HCO3 20.7 L VBG Total CO2 21.8 L VBG O2 Saturation 91.7 H VBG Base Excess -4 L A/P Assessment and plan (1) Community acquired bilateral lower lobe pneumonia: Status: Acute (2) CHF (congestive heart failure): Status: Acute Qualifiers: Heart failure chronicity: unspecified Heart failure type: unspecified Qualified Code(s): I50.9 - Heart failure, unspecified (3) CKD (chronic kidney disease), stage III: Status: Chronic Qualifiers: Chronic kidney disease stage 3 subtype: stage 3b (GFR 30-44) Qualified Code(s): N18.32 - Chronic kidney disease, stage 3b (4) Diabetes mellitus type 2 in obese: Status: Chronic Comment: Refill insulin, since he has been off it for 5 days, and they left it at their other home in [place] Follow-up in 1 month with PCP (5) Clinical sepsis: Status: Acute (6) Delirium: Status: Acute (7) Delirium tremens: Status: Acute Narrative A/P Narrative: Assessment and plan: 1. Community-acquired pneumonia bilateral lower lobes with associated delirium and clinical sepsis: Stays in inpatient MedSur Covid negative so no isolation protocol Serial lactic acid Procalcitonin Blood culture, no growth to date CBC with auto differential in the morning to trend WBC Finished antibiotics therapy Rocephin Tylenol as needed fever Robitussin-DM as needed cough DuoNeb nebulizer as needed wheezing Currently on room air #2 hyperglycemia uncontrolled type 2 diabetes: Hemoglobin A1c 11.4 Hold oral hypoglycemics Lantus and aspart from home regimen Correctional scale insulin high-dose ACH S Accu-Chek AC at bedtime Hypoglycemia protocol Diabetic diet next Neurotin 100mg PO TID PRN neuropathic pain #3 stage III chronic kidney disease secondary to type 2 diabetes: Stable and kidney functions back to baseline Avoid nephrotoxic agent Saline lock #4 history of chronic congestive heart failure, stable: Carvedilol 3.125 mg p.o. twice daily Hold diuretics due to soft blood pressure Losartan 5. Delirium Tremens: s/p Banana bags X3 days Finished CIWA protocol Awaiting placement GI prophylaxis: Not currently indicated DVT prophylaxis: Heparin CODE STATUS: DNI DNR Prognosis: Stable Disposition: Inpatient MedSurg, awaiting placement Time Spent With Patient Time: Total time spent is greater than 50% in coordination of care (as documented) at patient's floor/unit and/or counseling patient: QUALITY VTE Deep Vein Thrombosis/Pulmonary Embolism Present on Admission: No
[2021-01-03] MEDS: SENNOSIDES 1 TABLET PO SCH (19:49)
[2021-01-03] MEDS: MELATONIN 3 MG TABLET PO SCH (20:11)
[2021-01-03] MEDS: OLANZapine 5 MG TABLET PO SCH (20:11)
[2021-01-04] MEDS: INSULIN LISPRO 1 UNIT/0.01 ML UNIT SQ SCH ×3 (07:28→13:05)
[2021-01-04] MEDS: MULTIVIT,THER IRON,CA,FA & MIN 1 TABLET PO SCH (09:43)
[2021-01-04] MEDS: GABAPENTIN 100 MG CAPSULE PO SCH (09:43)
[2021-01-04] MEDS: LOSARTAN 25 MG TABLET PO SCH (09:43)
[2021-01-04] MEDS: FOLIC ACID 1 MG TABLET PO SCH (09:43)
[2021-01-04] MEDS: THIAMINE 100 MG TABLET PO SCH (09:43)
[2021-01-04] MEDS: CARVEDILOL 3.125 MG TABLET PO SCH (09:43)
[2021-01-04] MEDS: INSULIN GLARGINE, HUMAN 1 UNIT/0.01 ML SQ SCH (09:44)
[2021-01-04] MEDS: MUPIROCIN OINT 2% 22GM NARES SCH (09:44)
[2021-01-04] MEDS: HEPARIN 5,000 UNIT/ML VIAL SQ SCH (09:44)
--- NOTE | 2021-01-04 12:24 | Discharge Summary ---
Discharge Provider Provider Patient information: Note initiated : 01/04/21 at 12:21 pm Service Date, if different from initiated Date: [] Patient: Wolf Miles 85 y/o M admitted on 12/22/20 for Dementia. Chief Complaint: [pneumonia] History of present illness: Mr. Miles is a 85 year old M history of congestive heart failure, type 2 diabetes mellitus, clinically disease stage III, presenting with altered mental status. History limited by lack of caregiver at the bedside as well as clinical situations. Unknown time of onset or durations of symptoms. Patient denies any confusions. Patient denies any shortness of breath. Patient is complaining of nonproductive cough. Patient denies any wheezing. Patient denies any fever chills or diaphoresis. Vital signs significant for mild tachycardia heart rate in the 90s and tachypnea with a breathing up to mid 20s. Labs significant for leukocytosis with WBC 14.4. Serum lactic acid 1.9. Serum creatinine level 1.7 at baseline. Serum glucose elevated 419. Serum BNP is 3723. Chest x-ray significant for bibasilar infiltrates. Date of admission: 12/22/20 14:43 Discharge date: 01/04/21 Primary care physician: Joey Brooks PA-C Consults: 12/22/20 12:24 Consult to Physician [CONS] Stat Comment: Consulting Provider: Nikko Rivers Reason For Exam: Physician to Consult 12/23/20 10:27 Consult to Physician [CONS] Routine Comment: Consulting Provider: Braden Holley Reason For Exam: Physician to Consult 12/23/20 14:27 Consult to Physician [CONS] Routine Comment: snf referral Consulting Provider: [facility] Reason For Exam: Physician to Consult Discharge Meds Discharge Medications Home Medications Accu-Chek 1 each FS ACHS strip 11/26/18 [Rx Confirmed 12/22/20 Last Taken Unknown] acetaminophen 1,000 mg PO Q6H PRN 12/12/19 [History Confirmed 12/22/20 Last Taken Unknown] insulin syringe-needle U-100 1 mL 25 x 1" #200 each 04/23/20 [Rx Confirmed 12/22/20 Last Taken Unknown] losartan 25 mg tablet 25 mg PO QDAY #60 tab 04/23/20 [Rx Confirmed 12/22/20 Last Taken Unknown] hyoscyamine sulfate [Levsin/SL] 0.125 mg SUBLINGUAL QID PRN #20 tab 08/19/20 [Rx Confirmed 12/22/20 Last Taken Unknown] insulin aspart U-100 100 unit/mL (3 mL) subcutaneous pen 15 unit SUBCUT TID #15 ml 10/19/20 [Rx Confirmed 12/22/20 Last Taken Unknown] insulin glargine 100 unit/mL (3 mL) subcutaneous pen 25 unit SUBCUT QDAY #15 ml 10/19/20 [Rx Confirmed 12/22/20 Last Taken Unknown] carvedilol 6.25 mg PO BIDCC #60 tab 01/04/21 [Rx Last Taken Unknown] gabapentin 100 mg PO TID #30 cap 01/04/21 [Rx Last Taken Unknown] loperamide 2 mg PO PRN PRN #10 cap 01/04/21 [Rx Last Taken Unknown] olanzapine 5 mg PO HS #30 tab 01/04/21 [Rx Last Taken Unknown] tramadol 50 mg PO Q6HP PRN #20 tab 01/04/21 [Rx Last Taken Unknown] COURSE Hospital Course Hospital course: 12/23: s/p 16mg of Ativan given overnight, currently well sedated and sleeping. Low grade fever with Tmax 37.5 overnight. Blood culture no growth to date. Subjective not obtained due to clinical situations. 12/24 Patient awake alert and sitting in chair eating breakfast. Currently on room air. Leukocytosis improved. Suspect more of a dementia related agitation as opposed alcohol but still could be contributing. Creatinine improved. Constipation. 12/25 Patient sitting up in chair eating breakfast. No new complaints. Feels he slept all right. No overnight events or new complaints. 12/26 No changes. Patient sitting up in chair no acute issues. Awaiting placement. 12/27 No overnight event or new complaints mild confusion. 12/28 No overnight events. Awaiting placement. 12/29 No changes. Awaiting for placement 12/30 Intermittent low blood glucose so we lowered his Lantus. Otherwise no changes. Awaiting placement. 12/31: No major overnight events. Pending placement. 01/01: No major overnight events. Pending placement. c/o severe bilateral leg shooting pain. 01/02: No major overnight events. Pending placement. No complaints. 01/03: No major overnight events. Pending placement. No complaints. 01/04: Accepted by and being discharged to [facility] at 1400 Discharge diagnosis: pneumonia Time Spent with Patient Time attestation: Total time spent providing and/or coordinating discharge services: 12/23: s/p 16mg of Ativan given overnight, currently well sedated and sleeping. Low grade fever with Tmax 37.5 overnight. Blood culture no growth to date. Subjective not obtained due to clinical situations. 12/24 Patient awake alert and sitting in chair eating breakfast. Currently on room air. Leukocytosis improved. Suspect more of a dementia related agitation as opposed alcohol but still could be contributing. Creatinine improved. Constipation. 12/25 Patient sitting up in chair eating breakfast. No new complaints. Feels he slept all right. No overnight events or new complaints. 12/26 No changes. Patient sitting up in chair no acute issues. Awaiting placement. 12/27 No overnight event or new complaints mild confusion. 12/28 No overnight events. Awaiting placement. 12/29 No changes. Awaiting for placement 12/30 Intermittent low blood glucose so we lowered his Lantus. Otherwise no changes. Awaiting placement. 12/31: No major overnight events. Pending placement. 01/01: No major overnight events. Pending placement. c/o severe bilateral leg shooting pain. 01/02: No major overnight events. Pending placement. No complaints. 01/03: No major overnight events. Pending placement. No complaints. 01/04: Accepted by and being discharged to [facility] at 1400 EXAM Constitutional Vitals: Temp Pulse Resp BP Pulse Ox 36.6 C 89 18 143/84 93 01/04/21 07:00 01/04/21 07:00 01/04/21 07:00 01/04/21 07:00 01/04/21 07:00 General appearance: cooperative and no acute distress Head Head exam: Present atraumatic and normocephalic Eye Eye exam: Present EOMI and PERRL ENT ENT exam: Present mucous membranes moist, normal exam and normal external ear exam Neck Neck exam: Present normal inspection; Absent lymphadenopathy, tenderness and thyromegaly Respiratory Respiratory exam: Absent accessory muscle use, respiratory distress and wheezes Cardiovascular Cardiovascular exam: Present normal rate and rhythm; Absent JVD GI/Abdominal GI/Abdominal exam: Present normal bowel sounds and soft; Absent organomegaly and tenderness Rectal Rectal exam: Present deferred Extremities Exam Extremities exam: Present full ROM and normal capillary refill; Absent normal inspection and tenderness Additional comments: Right transmetatarsal amputation Neurological Exam Neurological exam: Present alert and CN II-XII intact; Absent motor sensory deficit and oriented X3 Additional comments: oriented X2 to person and place only Psychiatric Psychiatric exam: Present normal affect and normal mood; Absent anxious and depressed Skin Skin exam: Present dry and intact Discharge Plan Patient/Caregiver Discharge Instructions Activity: increase activity as tolerated Diet: Consistent Carbohydrate Prescriptions: New loperamide 2 mg Capsule 2 mg PO PRN PRN (Reason: Diarrhea) Qty: 10 RF: 0 olanzapine 5 mg Tablet 5 mg PO HS Qty: 30 RF: 0 tramadol 50 mg Tablet 50 mg PO Q6HP PRN (Reason: Pain) Qty: 20 RF: 0 carvedilol 3.125 mg Tablet 6.25 mg PO BIDCC Qty: 60 RF: 0 gabapentin 100 mg Capsule 100 mg PO TID Qty: 30 RF: 0 Continued insulin glargine 100 unit/mL (3 mL) insulin pen 25 unit subcut QDAY Qty: 15 RF: 0 insulin aspart U-100 100 unit/mL (3 mL) insulin pen 15 unit subcut TID Qty: 15 RF: 0 losartan 25 mg tablet 25 mg PO QDAY Qty: 60 RF: 1 (DME) BD Insulin Syringe 1 mL 25 x 1" syringe See Rx Instructions .ROUTE .MEDSUPPLY Qty: 200 RF: 3 Accu-Chek 1 EACH strip 1 each FS ACHS RF: 0 acetaminophen 500 mg Capsule 1,000 mg PO Q6H PRN (Reason: Pain) RF: 0 hyoscyamine sulfate [Levsin/SL] 0.125 mg tablet, sublingual 0.125 mg sublingual QID PRN (Reason: dyspepsia) Qty: 20 RF: 0 Follow Up Plan Follow up with: Joey Brooks PA-C [Primary Care Provider] - Patient Disposition: Xfer SNF Prognosis: Undetermined Rehab Potential: Fair I certify that the patient requires SNF services: Yes Overall status at discharge: patient is back to baseline Discharge Orders: Discharge Order (Routine); Ordered 01/04/21 Ordered By: Nikko BLAIR VTE Deep Vein Thrombosis/Pulmonary Embolism Present on Admission: No
== END 2021-01-04 14:10 | DRG 193 ==
LOC: ED 01:08 → MEDSUR 14:43
PROVIDERS: ADMIT Internal Medicine; ATTEND Internal Medicine